=== PATIENT | male | born 1935 | race Caucasian/White ===

== ENCOUNTER 2017-02-15 19:38 | Emergency (ER) | payer MEDICARE, BC ==
[2017-02-15] MEDS ORDERED: Sodium Chloride 0.9% 10 ML Syringe FLUSH PRN (19:51)
[2017-02-15] MEDS ORDERED: Nitroglycerin 0.4 MG Tab.SL SL ONE (19:52)
[2017-02-15] MEDS ORDERED: Aspirin 81 MG Tab.Chew PO ONE (19:56)
--- NOTE | 2017-02-15 19:56 | EDM.PDOC ---
ED HPI GENERAL MEDICAL PROBLEM - General Chief Complaint: Chest Pain Stated Complaint: chest pain Time Seen by Provider: 02/15/17 19:45 Source of Information: Reports: Patient, Family History Limitations: Reports: No Limitations - History of Present Illness INITIAL COMMENTS - FREE TEXT/NARRATIVE: Patient has been having chest pain intermittently for the last 2-3 weeks. He presents this evening due to sudden onset left sided chest pain. He has had this pain in the past. He describes it as starting in the left armpit and spreading across this chest. History of CABG surgery. Medical history includes diabetes, HTN, high cholesterol. Denies nausea or vomiting. No LOC, no headache. Pain is worse on inspiration and does lead to some SOB due to pain. He states he is urinating and having regular BM's with no visualized blood in either. Onset: Today, Sudden Quality: Reports: Sharp Severity: Moderate Associated Symptoms: Reports: Chest Pain Treatments [place]AR[place]: Reports: Aspirin (162 mg at home, lost his nitro tabs) Chest Pain Score (Numeric/FACES): 7 - Related Data Allergies Allergy/AdvReac Type Severity Reaction Status Date / Time No Known Allergies Allergy Verified 02/15/17 19:45 Home Meds: Home Meds Aspirin 325 mg PO DAILY 02/15/17 [History] Fenofibrate 160 mg PO DAILY 02/15/17 [History] Furosemide [Lasix] 20 mg PO DAILY 02/15/17 [History] Ibuprofen/Diphenhydramine Cit [Advil Pm Caplet] 1 each PO BEDTIME 02/15/17 [ History] Isosorbide Mononitrate [Imdur] 0.5 tab PO DAILY 02/15/17 [History] LORazepam [Ativan] 0.5 - 1 tab PO BID PRN 02/15/17 [History] Lisinopril 2.5 mg PO DAILY 02/15/17 [History] Metoprolol Tartrate 0.5 tab PO DAILY 02/15/17 [History] Naproxen Sodium [Aleve] 1 - 2 tab PO ASDIRECTED PRN 02/15/17 [History] Nitroglycerin 0.4 mg SL ASDIRECTED 02/15/17 [History] PARoxetine HCl [Paxil] 30 mg PO DAILY 02/15/17 [History] Tamsulosin HCl [Flomax] 0.4 mg PO DAILY 02/15/17 [History] atorvaSTATin [Lipitor] 40 mg PO BEDTIME 02/15/17 [History] metFORMIN HCl [Metformin HCl] 1,000 mg PO BID 02/15/17 [History] ED ROS GENERAL - Review of Systems Review Of Systems: See Below Constitutional: Reports: No Symptoms HEENT: Reports: No Symptoms Respiratory: Reports: Shortness of Breath Cardiovascular: Reports: Chest Pain Endocrine: Reports: No Symptoms GI/Abdominal: Reports: No Symptoms : Reports: Urgency Musculoskeletal: Reports: No Symptoms Skin: Reports: No Symptoms Neurological: Reports: No Symptoms Psychiatric: Reports: No Symptoms Hematologic/Lymphatic: Reports: No Symptoms Immunologic: Reports: No Symptoms ED EXAM, GENERAL - Physical Exam Exam: See Below Exam Limited By: No Limitations General Appearance: Alert, WD/WN, No Apparent Distress Eye Exam: Bilateral Eye: EOMI, PERRL Ears: Normal TMs Throat/Mouth: Normal Inspection, Normal Oropharynx Head: Atraumatic, Normocephalic Neck: Normal Inspection, Supple, Non-Tender, Full Range of Motion Respiratory/Chest: No Respiratory Distress, No Accessory Muscle Use, Chest Non- Tender, Crackles Cardiovascular: Normal Peripheral Pulses, Regular Rate, Rhythm Peripheral Pulses: 2+: Posterior Tibial (L), Posterior Tibial (R), Dorsalis Pedis (L), Dorsalis Pedis (R) GI/Abdominal: Normal Bowel Sounds, Soft, Non-Tender, No Organomegaly, No Distention Back Exam: Normal Inspection, Full Range of Motion Extremities: Normal Inspection, Normal Range of Motion, Non-Tender, Normal Capillary Refill, Pedal Edema Neurological: Alert, Oriented, CN II-XII Intact, Normal Cognition, Normal Gait, Normal Reflexes, No Motor/Sensory Deficits Psychiatric: Normal Affect, Normal Mood Skin Exam: Warm, Dry, Intact, Normal Color, No Rash Lymphatic: No Adenopathy Course - Vital Signs Last Recorded V/S: Last Vital Signs Temp 35.9 C 02/15/17 19:45 Pulse 64 02/15/17 19:45 Resp 22 H 02/15/17 19:45 BP 154/67 H 02/15/17 19:45 Pulse Ox 94 L 02/15/17 19:45 - Re-Assessments/Exams Free Text/Narrative Re-Assessment/Exam: 02/15/17 20:04 Labs and x-rays ordered 02/15/17 20:46 Labs non contributory. Cardiac related labs normal, d-dimer negative. Electrolytes normal Departure - Departure Time of Disposition: 21:14 Disposition: Home, Self-Care 01 Condition: Good Clinical Impression: Costochondral chest pain Instructions: Nonspecific Chest Pain, [id number], Pleurisy, [id number], Costochondritis, [id number] Forms: ED Department Discharge Additional Instructions: I advise scheduling an appointment with your interface engineer to determine whether you should have additional testing such as an echocardiogram or a stress test. All cardiac related testing tonight are negative for acute heart attack If your pain persists, please make sure to return If you have any further questions or concerns please make sure to call - Problem List & Annotations (1) Costochondral chest pain SNOMED Code(s): 222562003 Code(s): R07.1 - CHEST PAIN ON BREATHING Status: Acute Priority: Low Current Visit: Yes - Problem List Review Problem List Initiated/Reviewed/Updated: Yes - Assessment/Plan Assessment:: atypical chest pain pleuracy Plan: I advise scheduling an appointment with your interface engineer to determine whether you should have additional testing such as an echocardiogram or a stress test. All cardiac related testing tonight are negative for acute heart attack If your pain persists, please make sure to return If you have any further questions or concerns please make sure to call
[2017-02-15] MEDS ORDERED: Sodium Chloride 0.9% 1,000 ML IV SCH (20:00)
[2017-02-15 20:43] LABS: CHLORIDE,CL 105 mmol/L (98-107); SODIUM,NA 139 mmol/L (136-145)
[2017-02-16] MEDS ORDERED: Aspirin 81 MG Tab.Chew PO ONE (19:52)
== END 2017-02-15 21:24 | disposition home or self-care (01) ==
LOC: VM.ED 19:38
DX: R07.1 Chest pain on breathing (principal); I10 Essential (primary) hypertension; E78.00 Pure hypercholesterolemia, unspecified; E11.9 Type 2 diabetes mellitus without complications; Z79.82 Long term (current) use of aspirin; Z79.84 Long term (current) use of oral hypoglycemic drugs; Z95.1 Presence of aortocoronary bypass graft; Z79.899 Other long term (current) drug therapy
CPT/HCPCS: 36415; 71010; 80053; 82550; 83880; 84443; 84484; 85025; 85379; 85610; 93005; 99283; 99285; A9270

== ENCOUNTER 2019-10-22 14:40 | Emergency (ER) | payer MEDICARE, BC ==
[2019-10-22] MEDS ORDERED: Sodium Chloride 0.9% 10 ML Syringe FLUSH PRN (14:59)
--- NOTE | 2019-10-22 15:10 | CT ---
[id number] CT/CT Head Stroke Protocol EXAM: NONCONTRAST HEAD CT INDICATION: STROKE. COMPARISON: None. DISCUSSION: Mild to moderate generalized atrophy. There are mild to moderate chronic small vessel ischemic changes. A few scattered small foci of bilateral frontal encephalomalacia related to previous infarct or other remote insults. No acute hemorrhage, mass effect, midline shift, hydrocephalus or acute territorial infarct is identified. The orbits and paranasal sinuses are unremarkable. Results called at 3:05 PM on 10/22/2019. IMPRESSION: 1. No acute findings. Francisco Hooks MD 10/22/19 [id number] Thank you for allowing us to participate in the care of your patient.
--- NOTE | 2019-10-22 15:17 | EDM.PDOC ---
ED HPI GENERAL MEDICAL PROBLEM - General Stated Complaint: NUMB LEFT SIDE Time Seen by Provider: 10/22/19 14:40 - History of Present Illness INITIAL COMMENTS - FREE TEXT/NARRATIVE: Pt. presents to ER with complaints of L upper extremity weakness, pronator drift , and decreased sensation, and left sided facial droop. NIH stroke scale on arrival to ER was 7. Pt. states that the onset of symptoms was at 12:00 today. Pt. denies any head trauma. No history of cerebrovascular disease. No prior CVA. Denies any chest pain or shortness of breath. Pt. has a history of off pump CABG in 2006. Most recent echo showed EF of 65%. Pt. denies any fever or chills. No chest pain or shortness of breath. No cough or chest congestion. Denies any ill contacts. Onset: Today Onset Date: 10/22/19 Location: Reports: Generalized - Related Data Allergies Allergy/AdvReac Type Severity Reaction Status Date / Time No Known Allergies Allergy Verified 02/15/17 19:45 Home Meds: Home Meds Aspirin 325 mg PO DAILY 02/15/17 [History] Fenofibrate 160 mg PO DAILY 02/15/17 [History] Furosemide [Lasix] 20 mg PO DAILY 02/15/17 [History] Isosorbide Mononitrate [Imdur] 15 mg PO DAILY 02/15/17 [History] Lisinopril 2.5 mg PO DAILY 02/15/17 [History] Metoprolol Tartrate 25 mg PO DAILY 02/15/17 [History] Nitroglycerin 0.4 mg SL ASDIRECTED 02/15/17 [History] PARoxetine HCl [Paxil] 30 mg PO DAILY 02/15/17 [History] Tamsulosin HCl [Flomax] 0.4 mg PO DAILY 02/15/17 [History] metFORMIN HCl [Metformin HCl] 1,000 mg PO BID 02/15/17 [History] Fenofibrate 160 mg PO DAILY 10/22/19 [History] Mirabegron [Myrbetriq] 50 mg PO DAILY 10/22/19 [History] Rosuvastatin Calcium [Crestor] 40 mg PO DAILY 10/22/19 [History] hydroCHLOROthiazide [Hydrochlorothiazide] 12.5 mg PO DAILY 10/22/19 [History] Past Medical History Cardiovascular History: Reports: CAD, High Cholesterol, Hypertension Genitourinary History: Reports: BPH, Renal Disease Musculoskeletal History: Reports: Back Pain, Chronic, Osteoarthritis Psychiatric History: Reports: Anxiety, Depression Endocrine/Metabolic History: Reports: Diabetes, Type II, Obesity/BMI 30+ - Past Surgical History Musculoskeletal Surgical History: Reports: Shoulder Surgery ED ROS GENERAL - Review of Systems Review Of Systems: See Below Constitutional: Reports: No Symptoms HEENT: Reports: No Symptoms Respiratory: Reports: No Symptoms Cardiovascular: Reports: No Symptoms. Denies: Chest Pain, Dyspnea on Exertion, Edema, Palpitations, PND, Syncope Endocrine: Reports: No Symptoms GI/Abdominal: Reports: No Symptoms : Reports: No Symptoms Musculoskeletal: Reports: No Symptoms Skin: Reports: No Symptoms Neurological: Reports: Paresthesia, Weakness, Other (L sided facial droop, L pronator drift, diminished L sided hand grasp. NIH scale 7 on arrival.) Psychiatric: Reports: No Symptoms Hematologic/Lymphatic: Reports: No Symptoms Immunologic: Reports: No Symptoms ED EXAM, GENERAL - Physical Exam Exam: See Below Exam Limited By: No Limitations General Appearance: Alert, WD/WN, No Apparent Distress Eye Exam: Left Eye: Vision Changes (questionable L upper visual field deficit; ) , Bilateral Eye: EOMI, Normal Fundi, Normal Inspection Nose: Normal Inspection, Normal Mucosa, No Blood Throat/Mouth: Normal Inspection, Normal Lips, Normal Teeth, Normal Gums, Normal Oropharynx, Normal Voice, No Airway Compromise Head: Atraumatic, Normocephalic Neck: Normal Inspection, Supple, Non-Tender, Full Range of Motion Respiratory/Chest: No Respiratory Distress, Lungs Clear, Normal Breath Sounds, No Accessory Muscle Use, Chest Non-Tender Cardiovascular: Normal Peripheral Pulses, Regular Rate, Rhythm, No Edema, No JVD , Systolic Murmur Peripheral Pulses: 3+: Dorsalis Pedis (L), Dorsalis Pedis (R), 4+: Radial (L), Radial (R) GI/Abdominal: Normal Bowel Sounds, Soft, Non-Tender, No Organomegaly, No Distention, No Mass (Male) Exam: Deferred Rectal (Males) Exam: Deferred Back Exam: Normal Inspection, Full Range of Motion Extremities: Normal Inspection, Normal Range of Motion, Non-Tender, No Pedal Edema, Normal Capillary Refill Neurological: Alert, Oriented, CN II-XII Intact, Normal Cognition, Normal Gait, Normal Reflexes, No Motor/Sensory Deficits Psychiatric: Normal Affect, Normal Mood Skin Exam: Warm, Dry, Intact, Normal Color, No Rash Lymphatic: No Adenopathy Course - Orders/Labs/Meds Orders: Active Orders 24 hr Category Date Time Status EKG Documentation Completion [RC] STAT Care 10/22/19 14:59 Active COMPREHENSIVE METABOLIC PN,CMP [CHEM] Stat Lab 10/22/19 14:57 Received CRP [C-REACTIVE PROTEIN] [CHEM] Stat Lab 10/22/19 14:57 Received MAGNESIUM [CHEM] Stat Lab 10/22/19 14:57 Received TSH ULTRASENSITIVE [CHEM] Stat Lab 10/22/19 14:57 Received Sodium Chloride 0.9% [Saline Flush] Med 10/22/19 14:59 Active 10 ml FLUSH ASDIRECTED PRN Peripheral IV Insertion Adult [OM.PC] Routine Oth 10/22/19 14:59 Ordered Medication Orders Sodium Chloride (Saline Flush) 10 ml FLUSH ASDIRECTED PRN PRN Reason: Keep Vein Open Labs: Laboratory Tests 10/22/19 10/22/19 10/22/19 Range/Units 14:57 14:57 14:57 WBC 5.9 (4.0-10.0) x10^3/uL RBC 4.48 L (4.5-6.0) x10^6/uL Hgb 13.6 L (14.0-18.0) g/dL Hct 39.6 L (40.0-52.0) % MCV 88.4 (78.0-93.0) fL MCH 30.4 (26.0-32.0) pg MCHC 34.3 (32.0-36.0) g/dL RDW Coeff of [place] 12.8 (10.0-15.0) % Plt Count 139 (130-400) x10^3/uL Neut % (Auto) 70.6 (50.0-80.0) % Lymph % (Auto) 19.1 L (25.0-50.0) % [place] % (Auto) 7.2 (2.0-11.0) % Eos % (Auto) 2.6 (0.0-4.0) % Baso % (Auto) 0.5 (0.2-1.2) % PT 10.4 (10.0-12.8) SEC INR 0.9 L (2.0-3.5) POC Glucose 306 H (74-106) mg/dL POC Troponin I (0.00-0.08) ng/mL 10/22/19 Range/Units 14:59 WBC (4.0-10.0) x10^3/uL RBC (4.5-6.0) x10^6/uL Hgb (14.0-18.0) g/dL Hct (40.0-52.0) % MCV (78.0-93.0) fL MCH (26.0-32.0) pg MCHC (32.0-36.0) g/dL RDW Coeff of [place] (10.0-15.0) % Plt Count (130-400) x10^3/uL Neut % (Auto) (50.0-80.0) % Lymph % (Auto) (25.0-50.0) % [place] % (Auto) (2.0-11.0) % Eos % (Auto) (0.0-4.0) % Baso % (Auto) (0.2-1.2) % PT (10.0-12.8) SEC INR (2.0-3.5) POC Glucose (74-106) mg/dL POC Troponin I 0.00 (0.00-0.08) ng/mL Meds: Medications Generic Name Dose Route Start Last Admin Trade Name Freq PRN Reason Stop Dose Admin Sodium Chloride 10 ml 10/22/19 14:59 Saline Flush FLUSH ASDIRECTED PRN Keep Vein Open Departure - Departure Time of Disposition: 16:04 Disposition: DC/Tfer to Acute Hospital 02 Condition: Critical Clinical Impression: CVA (cerebral vascular accident) - Discharge Information Referrals: PCP,Unknown [Primary Care Provider] - Forms: Interfacility Transfer EMTALA Sepsis Event Note - Focused Exam Date Exam was Performed: 10/22/19 Time Exam was Performed: 15:55 - Problem List Review Problem List Initiated/Reviewed/Updated: Yes - My Orders Last 24 Hours: My Active Orders 10/22/19 14:57 COMPREHENSIVE METABOLIC PN,CMP [CHEM] Stat CRP [C-REACTIVE PROTEIN] [CHEM] Stat MAGNESIUM [CHEM] Stat TSH ULTRASENSITIVE [CHEM] Stat 10/22/19 14:59 EKG Documentation Completion [RC] STAT Sodium Chloride 0.9% [Saline Flush] 10 ml FLUSH ASDIRECTED PRN Peripheral IV Insertion Adult [OM.PC] Routine - Assessment/Plan Last 24 Hours: My Active Orders 10/22/19 14:57 COMPREHENSIVE METABOLIC PN,CMP [CHEM] Stat CRP [C-REACTIVE PROTEIN] [CHEM] Stat MAGNESIUM [CHEM] Stat TSH ULTRASENSITIVE [CHEM] Stat 10/22/19 14:59 EKG Documentation Completion [RC] STAT Sodium Chloride 0.9% [Saline Flush] 10 ml FLUSH ASDIRECTED PRN Peripheral IV Insertion Adult [OM.PC] Routine Plan: Discussed case at length with Dr. Olmos, Neurologist at [facility]. He advised starting TPA. Discussed PMH at length with patient and family. There is not history of cerebrovascular disease, recent trauma, GI bleeding, or trauma. He is not anticoagulated. Aside from a relative contraindication for age, pt. meets criteria. Risks, benefits, and process discussed at length with patient and family and they wish to proceed. Pt. was noted to have improvement in his L upper extremity weakness shortly after starting the TPA (post bolus). He will be transported via [facility] ground ambulance. He will be seen in ER as a stroke code. [facility] are accepting.
[2019-10-22 16:34] LABS: ANION GAP 13.9 mmol/L (10-20); CHLORIDE,CL 105 mmol/L (98-107); SODIUM,NA 143 mmol/L (136-145)
== END 2019-10-22 16:00 | disposition short-term general hospital (02) ==
LOC: VM.ED 14:40
DX: I63.9 Cerebral infarction, unspecified (principal); I10 Essential (primary) hypertension; E11.9 Type 2 diabetes mellitus without complications; E78.00 Pure hypercholesterolemia, unspecified; I25.10 Atherosclerotic heart disease of native coronary artery without angina pectoris; M19.90 Unspecified osteoarthritis, unspecified site; F41.9 Anxiety disorder, unspecified; F32.9 Major depressive disorder, single episode, unspecified; E66.9 Obesity, unspecified; Z79.82 Long term (current) use of aspirin; Z79.899 Other long term (current) drug therapy; Z79.84 Long term (current) use of oral hypoglycemic drugs
CPT/HCPCS: 37195; 70450; 80053; 82962; 83735; 84443; 84484; 85025; 85610; 86140; 93005; 99284-GF; 99285-25; J2997

== ENCOUNTER 2019-11-08 14:23 | Inpatient (IN) | payer MEDICARE, BC ==
--- NOTE | 2019-11-08 08:03 | PCM.HP.2 ---
H&P History of Present Illness - General Date of Service: 11/08/19 Source of Information: Patient History Limitations: Reports: No Limitations - History of Present Illness Initial Comments - Free Text/Narative: Mr. Figueroa is an 84 yo male with PMH of prior CVA, hyperlipidemia, hypertension , depression and anxiety, OA, BPH, CAD, obesity, diabetes complicated by CKD, and APPLE on CPAP who is admitted to swing bed for further rehabilitation following a stroke. He was initially admitted to [facility] 10/21-10/28 due to a right middle cerebral artery stroke for which he did receive TPA. During this hospitalization, he also underwent angioplasty and stenting of his right internal carotid artery due to high grade stenosis. His hospitalization was otherwise uncomplicated. He had residual left upper extremity weakness post-CVA and was transferred to the rehabilitation unit at [facility] on 10/28 for further strengthening. It is now felt he no longer requires that level of care but needs further strengthening prior to return home; therefore, he will be admitted to swing bed for further cares. Upon arrival to the floor, he denies any questions or concerns. He does note weakness in his left arm from the elbow down but otherwise denies any focal neurologic deficits. He did sustain a fall last evening and has had some left wrist pain related to that. He has a brace in place. He has mild pain in the wrist but overall states this is not bothersome. No other injuries from his fall. No headaches. His appetite has been good and he is on a regular diet. He denies any trouble with voiding. He has had some constipation for which he is on stool softeners. No abdominal pain. No fever. ROS otherwise negative as below. - Related Data Allergies/Adverse Reactions: Allergies Allergy/AdvReac Type Severity Reaction Status Date / Time No Known Allergies Allergy Verified 02/15/17 19:45 Home Medications: Home Meds Furosemide [Lasix] 20 mg PO DAILY 02/15/17 [History] Isosorbide Mononitrate [Imdur] 15 mg PO DAILY 02/15/17 [History] PARoxetine HCL [Paxil] 30 mg PO DAILY 02/15/17 [History] RX: Aspirin 325 mg PO DAILY 02/15/17 [History] RX: Lisinopril 2.5 mg PO DAILY 02/15/17 [History] Tamsulosin HCl [Flomax] 0.4 mg PO BEDTIME 02/15/17 [History] Mirabegron [Myrbetriq] 50 mg PO DAILY 10/22/19 [History] RX: Fenofibrate 160 mg PO DAILY 10/22/19 [History] hydroCHLOROthiazide [Hydrochlorothiazide] 12.5 mg PO DAILY 10/22/19 [History] Aspirin [Aspirin EC] 81 mg PO DAILY 11/08/19 [History] Benzonatate [Tessalon Perle] 100 mg PO TID PRN 11/08/19 [History] Fluticasone/Vilanterol [Breo Ellipta 100-25 MCG Inhalation Kit] 1 puff PO DAILY 11/08/19 [History] Liraglutide [Victoza 3-Gerber] 18 mg SUBCUT ASDIRECTED 11/08/19 [History] Multivitamin [Multi-Day Vitamins] 1 tab PO DAILY 11/08/19 [History] RX: Docusate Sodium 100 mg PO BID 11/08/19 [History] RX: Melatonin 6 mg PO BEDTIME 11/08/19 [History] RX: Ticagrelor [Brilinta] 90 mg PO BID 11/08/19 [History] Sennosides/Docusate Sodium [Senna-Docusate Sodium Tablet] 2 tab PO BEDTIME 11/07 [History] atorvaSTATin [Lipitor] 80 mg PO DAILY 11/08/19 [History] Past Medical History HEENT History: Reports: Cataract Cardiovascular History: Reports: CAD, High Cholesterol, Hypertension, Stents Respiratory History: Reports: Sleep Apnea Gastrointestinal History: Reports: None Genitourinary History: Reports: BPH, Renal Disease Musculoskeletal History: Reports: Back Pain, Chronic, Osteoarthritis Neurological History: Reports: CVA Psychiatric History: Reports: Anxiety, Depression Endocrine/Metabolic History: Reports: Diabetes, Type II, Obesity/BMI 30+ Hematologic History: Reports: None Immunologic History: Reports: None Oncologic (Cancer) History: Reports: None Dermatologic History: Reports: None - Infectious Disease History Infectious Disease History: Reports: None - Past Surgical History HEENT Surgical History: Reports: Cataract Surgery Cardiovascular Surgical History: Reports: Carotid Stents, Coronary Artery Bypass Neurological Surgical History: Reports: Lumbar Spine Musculoskeletal Surgical History: Reports: Carpal Tunnel, Shoulder Surgery Social & Family History - Family History Cardiac: Reports: CAD - Tobacco Use Smoking Status *Q: Former Smoker Tobacco Use Within Last Twelve Months: Smokeless Tobacco - Alcohol Use Alcohol Use History: No Alcohol Use in Last Twelve Months: Yes Alcohol Use Frequency: Rarely, Socially - Recreational Drug Use Recreational Drug Use: No - Living Situation & Occupation Living situation: Reports: , Alone 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) H&P Review of Systems - Review of Systems: Review Of Systems: See Below General: Reports: No Symptoms HEENT: Reports: No Symptoms Pulmonary: Reports: No Symptoms Cardiovascular: Reports: No Symptoms Gastrointestinal: Reports: No Symptoms Genitourinary: Reports: No Symptoms Musculoskeletal: Reports: Arm Pain Skin: Reports: No Symptoms Psychiatric: Reports: No Symptoms Neurological: Reports: Weakness Exam - Exam Exam: See Below - Exam General: Alert, Oriented, Cooperative HEENT: Conjunctiva Clear, Mucosa Moist & [place], Posterior Pharynx Clear, Pupils Equal, Pupils Reactive Neck: Supple, Trachea Midline. No: Lymphadenopathy, Thyromegaly Lungs: Clear to Auscultation, Normal Respiratory Effort Cardiovascular: Regular Rate, Regular Rhythm, Normal S1, Normal S2 GI/Abdominal Exam: Normal Bowel Sounds, Soft, Non-Tender, No Organomegaly, No Distention, No Mass Extremities: Non-Tender, No Pedal Edema, Normal Capillary Refill Peripheral Pulses: 2+: Radial (L), Radial (R) Skin: Warm, Dry, Intact Neurological: Other (Lower extremity strength equal bilaterally. Upper extremity strength equal proximal to the elbow; he has minimal finger mobility on the left, normal on the right. Sensation is intact throughout.) - Problem List (1) CVA (cerebral vascular accident) SNOMED Code(s): 244907017 ICD Code: I63.9 - CEREBRAL INFARCTION, UNSPECIFIED Status: Acute Current Visit: No Qualifiers: CVA mechanism: stenosis Precerebral and cerebral artery: carotid artery Laterality of affected vessel: right Qualified Code(s): I63.231 - Cerebral infarction due to unspecified occlusion or stenosis of right carotid arteries (2) Wrist injury SNOMED Code(s): 327185292 ICD Code: S69.90XA - UNSP INJURY OF UNSP WRIST, HAND AND FINGER(S), INIT ENCNTR Status: Acute Current Visit: Yes (3) Hyperlipidemia SNOMED Code(s): 79913237 ICD Code: E78.5 - HYPERLIPIDEMIA, UNSPECIFIED Status: Chronic Current Visit: No Qualifiers: Hyperlipidemia type: unspecified Qualified Code(s): E78.5 - Hyperlipidemia , unspecified (4) Hypertension SNOMED Code(s): 39302519 ICD Code: I10 - ESSENTIAL (PRIMARY) HYPERTENSION Status: Chronic Current Visit: No Qualifiers: Hypertension type: essential hypertension Qualified Code(s): I10 - Essential (primary) hypertension (5) Coronary artery disease SNOMED Code(s): 01513582 ICD Code: I25.10 - ATHSCL HEART DISEASE OF [place] CORONARY ARTERY W/O ANG PCTRS Status: Chronic Current Visit: No Qualifiers: Coronary Disease-Associated Artery/Lesion type: [place] artery [place] vs. transplanted heart: [place] heart Associated angina: without angina Qualified Code(s): I25.10 - Atherosclerotic heart disease of [place] coronary artery without angina pectoris (6) Diabetes SNOMED Code(s): 14310883 ICD Code: E11.9 - TYPE 2 DIABETES MELLITUS WITHOUT COMPLICATIONS Status: Chronic Current Visit: No Qualifiers: Diabetes mellitus type: type 2 Diabetes mellitus residential insulin use: without residential use Diabetes mellitus complication status: with kidney complications Diabetes mellitus complication detail: with chronic kidney disease (7) CKD (chronic kidney disease) SNOMED Code(s): 000805583 ICD Code: N18.9 - CHRONIC KIDNEY DISEASE, UNSPECIFIED Status: Chronic Current Visit: No Qualifiers: Chronic kidney disease stage: stage 3 (moderate) Qualified Code(s): N18.3 - Chronic kidney disease, stage 3 (moderate) (8) Osteoarthritis SNOMED Code(s): 272284723 ICD Code: M19.90 - UNSPECIFIED OSTEOARTHRITIS, UNSPECIFIED SITE Status: Chronic Current Visit: No Qualifiers: Osteoarthritis location: multiple joints Osteoarthritis type: primary Qualified Code(s): M89.49 - Other hypertrophic osteoarthropathy, multiple sites (9) BPH (benign prostatic hyperplasia) SNOMED Code(s): 518905804 ICD Code: N40.0 - BENIGN PROSTATIC HYPERPLASIA WITHOUT LOWER URINRY TRACT SYMP Status: Chronic Current Visit: No Qualifiers: Lower urinary tract symptom presence: unspecified whether lower urinary tract symptoms present Qualified Code(s): N40.0 - Benign prostatic hyperplasia without lower urinary tract symptoms (10) APPLE (obstructive sleep apnea) SNOMED Code(s): 09414768 ICD Code: G47.33 - OBSTRUCTIVE SLEEP APNEA (ADULT) (PEDIATRIC) Status: Chronic Current Visit: No Problem List Initiated/Reviewed/Updated: Yes Assessment/Plan Comment:: 84 yo male admitted to swing bed for further strengthening of his left upper extremity following a right MCA stroke. #1 Right CVA secondary to severe right ICA stenosis s/p stenting - Patient is progressing well with rehabilitation. - PT/OT consults ordered. - Anticipation is that he will only need 1-2 weeks of swing bed prior to returning home. - He will be on dual antiplatelet therapy for 3 months, then aspirin. - Continue statin and other home medications as below. #2 Wrist injury - X-rays negative. - Can wean from splint as able. #3 Hyperlipidemia #4 Hypertension #5 CAD - Continue home medications. #6 Type II Diabetes #7 CKD, stage 3 - Continue victoza as his renal function precludes many other options. - Will check glucoses fasting each morning. - Creatinine up to 2.6 from previous baseline of 1.7. - Will recheck this again on Tuesday. #8 OA #9 BPH - Continue home medications. #10 APPLE - Patient does not currently use CPAP. Patient will be admitted to swing bed as above - anticipate admission for 1-2 weeks prior to return home. Medications to be continued as per discharge medication list. Patient is DNR/DNI - discussed with him on admission. No indication for pharmacologic VTE prophylaxis and risks outweigh benefits in the setting of dual antiplatelet therapy.
[2019-11-08] MEDS ORDERED: Benzonatate 100 MG Cap PO PRN (16:10)
[2019-11-08] MEDS ORDERED: LIRAGLUTIDE 18 MG SUBCUT SCH (16:15)
[2019-11-08] MEDS: Ticagrelor 90 MG Tab PO SCH (20:06)
[2019-11-08] MEDS: Melatonin 3 MG Tab PO SCH (20:06)
[2019-11-08] MEDS: Tamsulosin 0.4 MG Cap.ER PO SCH (20:06)
[2019-11-08] MEDS: Docusate Sodium 100 MG Cap PO SCH (20:07)
[2019-11-09] MEDS: Fluticasone-Salmeterol 113-14 MCG Powder Inhalant INH SCH ×3 (03:35→19:45)
[2019-11-09] MEDS ORDERED: LIRAGLUTIDE 0.6 MG SUBCUT SCH (08:00)
[2019-11-09] MEDS ORDERED: Aspirin 325 MG Tab.EC PO SCH (08:00)
[2019-11-09] MEDS ORDERED: Hydrochlorothiazide 12.5 MG Cap PO SCH (08:00)
[2019-11-09] MEDS: Insulin Glarg,Human.Rec.Analog 100 Unit/ML SUBCUT SCH (09:46)
[2019-11-09] MEDS: Fenofibrate,Micronized 134 MG Cap PO SCH (09:48)
[2019-11-09] MEDS: atorvaSTATin 40 MG Tab PO SCH (09:49)
[2019-11-09] MEDS: Lisinopril 2.5 MG Tab PO SCH (09:49)
[2019-11-09] MEDS: Docusate Sodium 100 MG Cap PO SCH ×2 (09:50→19:45)
[2019-11-09] MEDS: Furosemide 20 MG Tab PO SCH (09:50)
[2019-11-09] MEDS: Isosorbide Mononitrate 30 MG Tab.ER PO SCH (09:50)
[2019-11-09] MEDS: PARoxetine 20 MG Tab PO SCH (09:51)
[2019-11-09] MEDS: Ticagrelor 90 MG Tab PO SCH ×2 (09:53→19:45)
[2019-11-09] MEDS: Mirabegron 25 MG Tab Extended Release PO SCH (10:04)
[2019-11-09] MEDS: Tamsulosin 0.4 MG Cap.ER PO SCH (19:45)
[2019-11-09] MEDS: Melatonin 3 MG Tab PO SCH (19:45)
[2019-11-10] MEDS: Fluticasone-Salmeterol 113-14 MCG Powder Inhalant INH SCH ×2 (06:38→19:31)
[2019-11-10] MEDS: Insulin Glarg,Human.Rec.Analog 100 Unit/ML SUBCUT SCH (09:47)
[2019-11-10] MEDS: atorvaSTATin 40 MG Tab PO SCH (09:48)
[2019-11-10] MEDS: Mirabegron 25 MG Tab Extended Release PO SCH (09:48)
[2019-11-10] MEDS: Lisinopril 2.5 MG Tab PO SCH (09:48)
[2019-11-10] MEDS: Isosorbide Mononitrate 30 MG Tab.ER PO SCH (09:49)
[2019-11-10] MEDS: Docusate Sodium 100 MG Cap PO SCH ×2 (09:49→19:30)
[2019-11-10] MEDS: Fenofibrate,Micronized 134 MG Cap PO SCH (09:49)
[2019-11-10] MEDS: Ticagrelor 90 MG Tab PO SCH ×2 (09:49→19:31)
[2019-11-10] MEDS: Aspirin 81 MG Tab.EC PO SCH (09:49)
[2019-11-10] MEDS: Furosemide 20 MG Tab PO SCH (09:50)
[2019-11-10] MEDS: PARoxetine 20 MG Tab PO SCH (09:51)
[2019-11-10] MEDS: Melatonin 3 MG Tab PO SCH (19:30)
[2019-11-10] MEDS: Tamsulosin 0.4 MG Cap.ER PO SCH (19:30)
[2019-11-11] MEDS: Fluticasone-Salmeterol 113-14 MCG Powder Inhalant INH SCH ×2 (07:00→19:33)
[2019-11-11] MEDS: Insulin Glarg,Human.Rec.Analog 100 Unit/ML SUBCUT SCH (09:42)
[2019-11-11] MEDS: Aspirin 81 MG Tab.EC PO SCH (09:43)
[2019-11-11] MEDS: atorvaSTATin 40 MG Tab PO SCH (09:43)
[2019-11-11] MEDS: Mirabegron 25 MG Tab Extended Release PO SCH (09:44)
[2019-11-11] MEDS: Furosemide 20 MG Tab PO SCH (09:44)
[2019-11-11] MEDS: PARoxetine 20 MG Tab PO SCH (09:44)
[2019-11-11] MEDS: Isosorbide Mononitrate 30 MG Tab.ER PO SCH (09:45)
[2019-11-11] MEDS: Lisinopril 2.5 MG Tab PO SCH (09:45)
[2019-11-11] MEDS: Docusate Sodium 100 MG Cap PO SCH ×2 (09:46→19:33)
[2019-11-11] MEDS: Fenofibrate,Micronized 134 MG Cap PO SCH (09:46)
[2019-11-11] MEDS: Ticagrelor 90 MG Tab PO SCH ×2 (09:47→19:32)
[2019-11-11] MEDS: Melatonin 3 MG Tab PO SCH (19:32)
[2019-11-11] MEDS: Tamsulosin 0.4 MG Cap.ER PO SCH (19:32)
[2019-11-12] MEDS: Fluticasone-Salmeterol 113-14 MCG Powder Inhalant INH SCH ×2 (06:33→19:47)
[2019-11-12] MEDS: Insulin Glarg,Human.Rec.Analog 100 Unit/ML SUBCUT SCH (08:50)
[2019-11-12] MEDS: PARoxetine 20 MG Tab PO SCH (08:51)
[2019-11-12] MEDS: Lisinopril 2.5 MG Tab PO SCH (08:51)
[2019-11-12] MEDS: Fenofibrate,Micronized 134 MG Cap PO SCH (08:51)
[2019-11-12] MEDS: Mirabegron 25 MG Tab Extended Release PO SCH (08:52)
[2019-11-12] MEDS: Ticagrelor 90 MG Tab PO SCH ×2 (08:53→19:49)
[2019-11-12] MEDS: atorvaSTATin 40 MG Tab PO SCH (08:53)
[2019-11-12] MEDS: Docusate Sodium 100 MG Cap PO SCH ×2 (08:53→19:48)
[2019-11-12] MEDS: Isosorbide Mononitrate 30 MG Tab.ER PO SCH (08:53)
[2019-11-12] MEDS: Furosemide 20 MG Tab PO SCH (08:53)
[2019-11-12] MEDS: Aspirin 81 MG Tab.EC PO SCH (08:53)
[2019-11-12] MEDS: Melatonin 3 MG Tab PO SCH (19:48)
[2019-11-12] MEDS: Tamsulosin 0.4 MG Cap.ER PO SCH (19:48)
[2019-11-13] MEDS: Fluticasone-Salmeterol 113-14 MCG Powder Inhalant INH SCH ×2 (06:11→19:31)
[2019-11-13] MEDS: PARoxetine 20 MG Tab PO SCH (07:40)
[2019-11-13] MEDS: Ticagrelor 90 MG Tab PO SCH ×2 (07:40→19:32)
[2019-11-13] MEDS: Mirabegron 25 MG Tab Extended Release PO SCH (07:40)
[2019-11-13] MEDS: Furosemide 20 MG Tab PO SCH (07:40)
[2019-11-13] MEDS: atorvaSTATin 40 MG Tab PO SCH (07:40)
[2019-11-13] MEDS: Isosorbide Mononitrate 30 MG Tab.ER PO SCH (07:40)
[2019-11-13] MEDS: Aspirin 81 MG Tab.EC PO SCH (07:40)
[2019-11-13] MEDS: Fenofibrate,Micronized 134 MG Cap PO SCH (07:41)
[2019-11-13] MEDS: Docusate Sodium 100 MG Cap PO SCH ×2 (07:41→19:32)
[2019-11-13] MEDS: Lisinopril 2.5 MG Tab PO SCH (07:41)
[2019-11-13] MEDS: Insulin Glarg,Human.Rec.Analog 100 Unit/ML SUBCUT SCH (07:46)
[2019-11-13] MEDS: Tamsulosin 0.4 MG Cap.ER PO SCH (19:32)
[2019-11-13] MEDS: Melatonin 3 MG Tab PO SCH (19:32)
[2019-11-14] MEDS: Fluticasone-Salmeterol 113-14 MCG Powder Inhalant INH SCH ×2 (06:11→19:49)
[2019-11-14] MEDS: Insulin Glarg,Human.Rec.Analog 100 Unit/ML SUBCUT SCH (09:28)
[2019-11-14] MEDS: PARoxetine 20 MG Tab PO SCH (09:31)
[2019-11-14] MEDS: Fenofibrate,Micronized 134 MG Cap PO SCH (09:31)
[2019-11-14] MEDS: atorvaSTATin 40 MG Tab PO SCH (09:32)
[2019-11-14] MEDS: Ticagrelor 90 MG Tab PO SCH ×2 (09:32→19:50)
[2019-11-14] MEDS: Mirabegron 25 MG Tab Extended Release PO SCH (09:32)
[2019-11-14] MEDS: Lisinopril 2.5 MG Tab PO SCH (09:32)
[2019-11-14] MEDS: Isosorbide Mononitrate 30 MG Tab.ER PO SCH (09:32)
[2019-11-14] MEDS: Docusate Sodium 100 MG Cap PO SCH ×2 (09:33→19:51)
[2019-11-14] MEDS: Furosemide 20 MG Tab PO SCH (09:33)
[2019-11-14] MEDS: Aspirin 81 MG Tab.EC PO SCH (09:33)
[2019-11-14] MEDS: Melatonin 3 MG Tab PO SCH (19:51)
[2019-11-14] MEDS: Tamsulosin 0.4 MG Cap.ER PO SCH (19:51)
[2019-11-15] MEDS: Fluticasone-Salmeterol 113-14 MCG Powder Inhalant INH SCH ×3 (05:35→20:45)
[2019-11-15] MEDS: Mirabegron 25 MG Tab Extended Release PO SCH (08:30)
[2019-11-15] MEDS: Isosorbide Mononitrate 30 MG Tab.ER PO SCH (08:31)
[2019-11-15] MEDS: Lisinopril 2.5 MG Tab PO SCH (08:32)
[2019-11-15] MEDS: Aspirin 81 MG Tab.EC PO SCH (08:32)
[2019-11-15] MEDS: PARoxetine 20 MG Tab PO SCH (08:33)
[2019-11-15] MEDS: Furosemide 20 MG Tab PO SCH (08:34)
[2019-11-15] MEDS: atorvaSTATin 40 MG Tab PO SCH (08:34)
[2019-11-15] MEDS: Docusate Sodium 100 MG Cap PO SCH ×2 (08:34→20:48)
[2019-11-15] MEDS: Ticagrelor 90 MG Tab PO SCH ×2 (08:35→20:47)
[2019-11-15] MEDS: Fenofibrate,Micronized 134 MG Cap PO SCH (08:35)
[2019-11-15] MEDS: Insulin Glarg,Human.Rec.Analog 100 Unit/ML SUBCUT SCH (08:35)
[2019-11-15] MEDS: Melatonin 3 MG Tab PO SCH (20:47)
[2019-11-15] MEDS: Tamsulosin 0.4 MG Cap.ER PO SCH (20:47)
[2019-11-16] MEDS: Fluticasone-Salmeterol 113-14 MCG Powder Inhalant INH SCH ×2 (07:38→21:22)
[2019-11-16] MEDS: Insulin Glarg,Human.Rec.Analog 100 Unit/ML SUBCUT SCH (07:39)
[2019-11-16] MEDS: Lisinopril 2.5 MG Tab PO SCH (07:42)
[2019-11-16] MEDS: Mirabegron 25 MG Tab Extended Release PO SCH (07:42)
[2019-11-16] MEDS: atorvaSTATin 40 MG Tab PO SCH (07:42)
[2019-11-16] MEDS: Docusate Sodium 100 MG Cap PO SCH ×2 (07:42→21:23)
[2019-11-16] MEDS: Ticagrelor 90 MG Tab PO SCH ×2 (07:45→21:23)
[2019-11-16] MEDS: Isosorbide Mononitrate 30 MG Tab.ER PO SCH (07:45)
[2019-11-16] MEDS: Fenofibrate,Micronized 134 MG Cap PO SCH (07:45)
[2019-11-16] MEDS: Aspirin 81 MG Tab.EC PO SCH (07:45)
[2019-11-16] MEDS: Furosemide 20 MG Tab PO SCH (07:45)
[2019-11-16] MEDS: PARoxetine 20 MG Tab PO SCH (07:45)
[2019-11-16] MEDS: Melatonin 3 MG Tab PO SCH (21:23)
[2019-11-16] MEDS: Tamsulosin 0.4 MG Cap.ER PO SCH (21:23)
[2019-11-17] MEDS: Docusate Sodium 100 MG Cap PO SCH ×2 (07:51→19:40)
[2019-11-17] MEDS: Fluticasone-Salmeterol 113-14 MCG Powder Inhalant INH SCH ×2 (07:52→19:41)
[2019-11-17] MEDS: Insulin Glarg,Human.Rec.Analog 100 Unit/ML SUBCUT SCH (07:52)
[2019-11-17] MEDS: PARoxetine 20 MG Tab PO SCH (07:53)
[2019-11-17] MEDS: Isosorbide Mononitrate 30 MG Tab.ER PO SCH (07:55)
[2019-11-17] MEDS: Lisinopril 2.5 MG Tab PO SCH (07:57)
[2019-11-17] MEDS: Furosemide 20 MG Tab PO SCH (07:58)
[2019-11-17] MEDS: Mirabegron 25 MG Tab Extended Release PO SCH (07:58)
[2019-11-17] MEDS: Ticagrelor 90 MG Tab PO SCH ×2 (07:58→19:40)
[2019-11-17] MEDS: atorvaSTATin 40 MG Tab PO SCH (07:58)
[2019-11-17] MEDS: Aspirin 81 MG Tab.EC PO SCH (07:58)
[2019-11-17] MEDS: Fenofibrate,Micronized 134 MG Cap PO SCH (07:58)
[2019-11-17] MEDS: Melatonin 3 MG Tab PO SCH (19:40)
[2019-11-17] MEDS: Tamsulosin 0.4 MG Cap.ER PO SCH (19:41)
[2019-11-18] MEDS: Fluticasone-Salmeterol 113-14 MCG Powder Inhalant INH SCH ×2 (06:27→19:24)
[2019-11-18] MEDS: atorvaSTATin 40 MG Tab PO SCH (07:42)
[2019-11-18] MEDS: Insulin Glarg,Human.Rec.Analog 100 Unit/ML SUBCUT SCH (07:42)
[2019-11-18] MEDS: Isosorbide Mononitrate 30 MG Tab.ER PO SCH (07:43)
[2019-11-18] MEDS: Mirabegron 25 MG Tab Extended Release PO SCH (07:45)
[2019-11-18] MEDS: Aspirin 81 MG Tab.EC PO SCH (07:45)
[2019-11-18] MEDS: Furosemide 20 MG Tab PO SCH (07:45)
[2019-11-18] MEDS: Docusate Sodium 100 MG Cap PO SCH ×2 (07:46→19:24)
[2019-11-18] MEDS: Fenofibrate,Micronized 134 MG Cap PO SCH (07:46)
[2019-11-18] MEDS: PARoxetine 20 MG Tab PO SCH (07:46)
[2019-11-18] MEDS: Lisinopril 2.5 MG Tab PO SCH (07:46)
[2019-11-18] MEDS: Ticagrelor 90 MG Tab PO SCH ×2 (07:46→19:24)
[2019-11-18] MEDS: Tamsulosin 0.4 MG Cap.ER PO SCH (19:24)
[2019-11-18] MEDS: Melatonin 3 MG Tab PO SCH (19:24)
[2019-11-19] MEDS: Fluticasone-Salmeterol 113-14 MCG Powder Inhalant INH SCH ×2 (06:21→19:45)
[2019-11-19] MEDS: PARoxetine 20 MG Tab PO SCH (07:52)
[2019-11-19] MEDS: Furosemide 20 MG Tab PO SCH (07:53)
[2019-11-19] MEDS: Mirabegron 25 MG Tab Extended Release PO SCH (07:54)
[2019-11-19] MEDS: atorvaSTATin 40 MG Tab PO SCH (07:54)
[2019-11-19] MEDS: Fenofibrate,Micronized 134 MG Cap PO SCH (07:56)
[2019-11-19] MEDS: Docusate Sodium 100 MG Cap PO SCH ×2 (07:56→19:45)
[2019-11-19] MEDS: Lisinopril 2.5 MG Tab PO SCH (07:57)
[2019-11-19] MEDS: Aspirin 81 MG Tab.EC PO SCH (07:58)
[2019-11-19] MEDS: Isosorbide Mononitrate 30 MG Tab.ER PO SCH (07:58)
[2019-11-19] MEDS: Ticagrelor 90 MG Tab PO SCH ×2 (07:59→19:45)
[2019-11-19] MEDS: Insulin Glarg,Human.Rec.Analog 100 Unit/ML SUBCUT SCH (08:01)
[2019-11-19] MEDS: Melatonin 3 MG Tab PO SCH (19:45)
[2019-11-19] MEDS: Tamsulosin 0.4 MG Cap.ER PO SCH (19:45)
[2019-11-20] MEDS: Fluticasone-Salmeterol 113-14 MCG Powder Inhalant INH SCH ×2 (06:28→19:31)
[2019-11-20] MEDS: Ticagrelor 90 MG Tab PO SCH ×2 (07:47→19:31)
[2019-11-20] MEDS: Furosemide 20 MG Tab PO SCH (07:47)
[2019-11-20] MEDS: Lisinopril 2.5 MG Tab PO SCH (07:47)
[2019-11-20] MEDS: Docusate Sodium 100 MG Cap PO SCH ×2 (07:47→19:31)
[2019-11-20] MEDS: PARoxetine 20 MG Tab PO SCH (07:47)
[2019-11-20] MEDS: Fenofibrate,Micronized 134 MG Cap PO SCH (07:47)
[2019-11-20] MEDS: Aspirin 81 MG Tab.EC PO SCH (07:48)
[2019-11-20] MEDS: Mirabegron 25 MG Tab Extended Release PO SCH (07:48)
[2019-11-20] MEDS: atorvaSTATin 40 MG Tab PO SCH (07:48)
[2019-11-20] MEDS: Isosorbide Mononitrate 30 MG Tab.ER PO SCH (07:48)
[2019-11-20] MEDS: Insulin Glarg,Human.Rec.Analog 100 Unit/ML SUBCUT SCH (07:48)
[2019-11-20] MEDS: Melatonin 3 MG Tab PO SCH (19:31)
[2019-11-20] MEDS: Tamsulosin 0.4 MG Cap.ER PO SCH (19:31)
[2019-11-21] MEDS: Fluticasone-Salmeterol 113-14 MCG Powder Inhalant INH SCH ×2 (06:07→19:29)
[2019-11-21] MEDS: atorvaSTATin 40 MG Tab PO SCH (07:18)
[2019-11-21] MEDS: Mirabegron 25 MG Tab Extended Release PO SCH (07:18)
[2019-11-21] MEDS: Docusate Sodium 100 MG Cap PO SCH ×2 (07:18→19:30)
[2019-11-21] MEDS: Isosorbide Mononitrate 30 MG Tab.ER PO SCH (07:18)
[2019-11-21] MEDS: Fenofibrate,Micronized 134 MG Cap PO SCH (07:19)
[2019-11-21] MEDS: Lisinopril 2.5 MG Tab PO SCH (07:19)
[2019-11-21] MEDS: Furosemide 20 MG Tab PO SCH (07:19)
[2019-11-21] MEDS: PARoxetine 20 MG Tab PO SCH (07:19)
[2019-11-21] MEDS: Insulin Glarg,Human.Rec.Analog 100 Unit/ML SUBCUT SCH (07:19)
[2019-11-21] MEDS: Aspirin 81 MG Tab.EC PO SCH (07:19)
[2019-11-21] MEDS: Ticagrelor 90 MG Tab PO SCH ×2 (07:19→19:30)
[2019-11-21] MEDS: Tamsulosin 0.4 MG Cap.ER PO SCH (19:29)
[2019-11-21] MEDS: Melatonin 3 MG Tab PO SCH (19:58)
[2019-11-22 06:30] VITALS: PULSE 76
[2019-11-22] MEDS: Fluticasone-Salmeterol 113-14 MCG Powder Inhalant INH SCH (06:30)
--- NOTE | 2019-11-22 08:31 | PCM.DCSUM1 ---
Discharge Summary - Hospital Course Brief History: Mr. Figueroa is an 84 yo male who was admitted to swing bed for strengthening after a CVA with resultant left upper extremity weakness. - Discharge Data Discharge Date: 11/22/19 Discharge Disposition: Home, Self-Care 01 Condition: Good - Referral to Home Health Primary Care Physician: Tre Encinas PA-C - Discharge Diagnosis/Problem(s) (1) CVA (cerebral vascular accident) SNOMED Code(s): 433479259 ICD Code: I63.9 - CEREBRAL INFARCTION, UNSPECIFIED Status: Acute Current Visit: No Qualifiers: CVA mechanism: stenosis Precerebral and cerebral artery: carotid artery Laterality of affected vessel: right Qualified Code(s): I63.231 - Cerebral infarction due to unspecified occlusion or stenosis of right carotid arteries (2) Wrist injury SNOMED Code(s): 694711377 ICD Code: S69.90XA - UNSP INJURY OF UNSP WRIST, HAND AND FINGER(S), INIT ENCNTR Status: Acute Current Visit: Yes (3) Hyperlipidemia SNOMED Code(s): 05612223 ICD Code: E78.5 - HYPERLIPIDEMIA, UNSPECIFIED Status: Chronic Current Visit: No Qualifiers: Hyperlipidemia type: unspecified Qualified Code(s): E78.5 - Hyperlipidemia , unspecified (4) Hypertension SNOMED Code(s): 17269893 ICD Code: I10 - ESSENTIAL (PRIMARY) HYPERTENSION Status: Chronic Current Visit: No Qualifiers: Hypertension type: essential hypertension Qualified Code(s): I10 - Essential (primary) hypertension (5) Coronary artery disease SNOMED Code(s): 86550014 ICD Code: I25.10 - ATHSCL HEART DISEASE OF [place] CORONARY ARTERY W/O ANG PCTRS Status: Chronic Current Visit: No Qualifiers: Coronary Disease-Associated Artery/Lesion type: [place] artery [place] vs. transplanted heart: [place] heart Associated angina: without angina Qualified Code(s): I25.10 - Atherosclerotic heart disease of [place] coronary artery without angina pectoris (6) Diabetes SNOMED Code(s): 62560539 ICD Code: E11.9 - TYPE 2 DIABETES MELLITUS WITHOUT COMPLICATIONS Status: Chronic Current Visit: No Qualifiers: Diabetes mellitus type: type 2 Diabetes mellitus ocean transportation intermediary insulin use: without ocean transportation intermediary use Diabetes mellitus complication status: with kidney complications Diabetes mellitus complication detail: with chronic kidney disease (7) CKD (chronic kidney disease) SNOMED Code(s): 085585604 ICD Code: N18.9 - CHRONIC KIDNEY DISEASE, UNSPECIFIED Status: Chronic Current Visit: No Qualifiers: Chronic kidney disease stage: stage 3 (moderate) Qualified Code(s): N18.3 - Chronic kidney disease, stage 3 (moderate) (8) Osteoarthritis SNOMED Code(s): 115414575 ICD Code: M19.90 - UNSPECIFIED OSTEOARTHRITIS, UNSPECIFIED SITE Status: Chronic Current Visit: No Qualifiers: Osteoarthritis location: multiple joints Osteoarthritis type: primary Qualified Code(s): M89.49 - Other hypertrophic osteoarthropathy, multiple sites (9) BPH (benign prostatic hyperplasia) SNOMED Code(s): 894487393 ICD Code: N40.0 - BENIGN PROSTATIC HYPERPLASIA WITHOUT LOWER URINRY TRACT SYMP Status: Chronic Current Visit: No Qualifiers: Lower urinary tract symptom presence: unspecified whether lower urinary tract symptoms present Qualified Code(s): N40.0 - Benign prostatic hyperplasia without lower urinary tract symptoms (10) APPLE (obstructive sleep apnea) SNOMED Code(s): 88833281 ICD Code: G47.33 - OBSTRUCTIVE SLEEP APNEA (ADULT) (PEDIATRIC) Status: Chronic Current Visit: No - Patient Summary/Data Operative Procedure(s) Performed: none Complications: none Consults: Consultations 11/08/19 16:02 OT Evaluation and Treatment [CONS] Routine PT Evaluation and Treatment [CONS] Routine Labs Pending at D/C: none Recommended Follow-up Testing/Procedures: none Planned Operative Procedure(s) after DC: none Hospital Course: The patient was admitted and participated in therapies with OT and PT. His medications were continued per his hospital discharge list with the exception of the victoza being replaced with insulin due to inability to get the victoza. His glucoses were well controlled on the insulin. He will be continued on this upon discharge with subsequent medication management to be determined in follow- up. His labs were monitored weekly with improvement in his creatinine noted. His hospitalization was otherwise uncomplicated. He progressed well with therapies and will be discharged home to continue outpatient PT and OT. His daughter is coming from [place] to stay with him for a few days as he adjusts to returning home. - Patient Instructions Diet: Diabetic Diet Activity: As Tolerated - Discharge Plan *PRESCRIPTION DRUG MONITORING PROGRAM REVIEWED*: No *COPY OF PRESCRIPTION DRUG MONITORING REPORT IN PATIENT JUAN: No Prescriptions/Med Rec: Insulin Glarg,Human.Rec.Analog [Lantus] 10 unit SUBCUT DAILY #10 ml Home Medications: Home Meds Furosemide [Lasix] 20 mg PO DAILY 02/15/17 [History] Isosorbide Mononitrate [Imdur] 15 mg PO DAILY 02/15/17 [History] Lisinopril 2.5 mg PO DAILY 02/15/17 [History] PARoxetine HCL [Paxil] 30 mg PO DAILY 02/15/17 [History] Tamsulosin HCl [Flomax] 0.4 mg PO BEDTIME 02/15/17 [History] Fenofibrate 160 mg PO DAILY 10/22/19 [History] Mirabegron [Myrbetriq] 50 mg PO DAILY 10/22/19 [History] Aspirin [Aspirin EC] 81 mg PO DAILY 11/08/19 [History] Docusate Sodium 100 mg PO BID 11/08/19 [History] Fluticasone/Vilanterol [Breo Ellipta 100-25 MCG Inhalation Kit] 1 puff PO DAILY 11/08/19 [History] Melatonin 6 mg PO BEDTIME 11/08/19 [History] Multivitamin [Multi-Day Vitamins] 1 tab PO DAILY 11/08/19 [History] Sennosides/Docusate Sodium [Senna-Docusate Sodium Tablet] 2 tab PO BEDTIME 11/07 [History] Ticagrelor [Brilinta] 90 mg PO BID 11/08/19 [History] atorvaSTATin [Lipitor] 80 mg PO DAILY 11/08/19 [History] Insulin Glarg,Human.Rec.Analog [Lantus] 10 unit SUBCUT DAILY #10 ml 11/22/19 [Rx ] - Discharge Summary/Plan Comment DC Time >30 min.: No - General Info Date of Service: 11/22/19 Subjective Update: 84 yo male seen today for swing bed discharge. He states he is doing well. His left hand is getting stronger. He denies any other concerns today. ROS otherwise negative. - Review of Systems General: Reports: No Symptoms HEENT: Reports: No Symptoms Pulmonary: Reports: No Symptoms Cardiovascular: Reports: No Symptoms Gastrointestinal: Reports: No Symptoms Genitourinary: Reports: No Symptoms Musculoskeletal: Reports: No Symptoms Skin: Reports: No Symptoms Neurological: Reports: Pre-Existing Deficit - Patient Data Vitals - Most Recent: Last Vital Signs Temp 36.4 C 11/22/19 06:29 Pulse 76 11/22/19 06:29 Resp 18 11/22/19 06:29 BP 125/79 11/22/19 06:29 Pulse Ox 94 L 11/22/19 06:29 Weight - Most Recent: 92.986 kg I&O - Last 24 hours: Intake & Output 11/21/19 11/22/19 11/22/19 22:59 06:59 14:59 Intake Total 420 Balance 420 Lab Results - Last 24 hrs: Laboratory Results - last 24 hr 11/22/19 Range/Units 06:26 POC Glucose 180 H (74-106) mg/dL Med Orders - Current: Current Medications Aspirin (Halfprin) 81 mg PO DAILY [facility] Stop: 01/24/20 08:01 Last Admin: 11/21/19 07:19 Dose: 81 mg Atorvastatin Calcium (Lipitor) 80 mg PO DAILY [facility] Last Admin: 11/21/19 07:18 Dose: 80 mg Benzonatate (Tessalon Perles) 100 mg PO TID PRN PRN Reason: Cough Docusate Sodium (Colace) 100 mg PO BID [facility] Last Admin: 11/21/19 19:30 Dose: 100 mg Fenofibrate (Fenofibrate) 134 mg PO DAILY [facility] Last Admin: 11/21/19 07:19 Dose: 134 mg Furosemide (Lasix) 20 mg PO DAILY [facility] Last Admin: 11/21/19 07:19 Dose: 20 mg Insulin Glargine (Lantus) 10 unit SUBCUT DAILY [facility] Last Admin: 11/21/19 07:19 Dose: 10 units Isosorbide Mononitrate (Imdur) 15 mg PO DAILY [facility] Last Admin: 11/21/19 07:18 Dose: 15 mg Lisinopril (Prinivil) 2.5 mg PO DAILY [facility] Last Admin: 11/21/19 07:19 Dose: 2.5 mg Melatonin (Melatonin) 6 mg PO BEDTIME [facility] Last Admin: 11/21/19 19:58 Dose: 6 mg Mirabegron (Myrbetriq) 50 mg PO DAILY [facility] Last Admin: 11/21/19 07:18 Dose: 50 mg Paroxetine HCl (Paxil) 30 mg PO DAILY [facility] Last Admin: 11/21/19 07:19 Dose: 30 mg Fluticasone/Salmeterol (Fluticasone-Salmeterol 113-14 Mcg Powder Inh) 1 puff INH BIDRT [facility] Last Admin: 11/22/19 06:30 Dose: 1 inhalation Senna/Docusate Sodium (Senna Plus) 2 tab PO BEDTIME [facility] Last Admin: 11/21/19 19:30 Dose: 2 tab Tamsulosin HCl (Flomax) 0.4 mg PO BEDTIME [facility] Last Admin: 11/21/19 19:29 Dose: 0.4 mg Ticagrelor (Brilinta) 90 mg PO BID [facility] Last Admin: 11/21/19 19:30 Dose: 90 mg Discontinued Medications Aspirin (Ecotrin) 325 mg PO DAILY [facility] Last Admin: 11/09/19 09:49 Dose: 325 mg Hydrochlorothiazide (Hydrochlorothiazide) 12.5 mg PO DAILY [facility] Non-Formulary Medication (Liraglutide [Victoza]) 18 mg SUBCUT ASDIRECTED [facility] Non-Formulary Medication (Liraglutide [Victoza]) 0.6 mg SUBCUT DAILY [facility] - Exam General: Reports: Alert, Oriented, Cooperative, No Acute Distress HEENT: Reports: Mucous Membr. Moist/[place] Neck: Reports: Supple, Trachea Midline, No Thyromegaly. Denies: Lymphadenopathy Lungs: Reports: Clear to Auscultation, Normal Respiratory Effort Cardiovascular: Reports: Regular Rate, Regular Rhythm, No Murmurs GI/Abdominal Exam: Normal Bowel Sounds, Soft, Non-Tender, No Organomegaly, No Distention, No Mass Extremities: Non-Tender, No Pedal Edema, Normal Capillary Refill Skin: Reports: Warm, Dry, Intact Neurological: Reports: No New Focal Deficit (ROM and strength improved in left hand compared to prior) *Q Meaningful Use (DIS) - VTE *Q VTE Anticoagulation Contraindications: Med/TX Not Indicated/Need
[2019-11-22] MEDS: Mirabegron 25 MG Tab Extended Release PO SCH (09:39)
[2019-11-22] MEDS: Insulin Glarg,Human.Rec.Analog 100 Unit/ML SUBCUT SCH (09:39)
[2019-11-22 09:40] VITALS: BP 125/80
[2019-11-22] MEDS: Fenofibrate,Micronized 134 MG Cap PO SCH (09:40)
[2019-11-22] MEDS: atorvaSTATin 40 MG Tab PO SCH (09:40)
[2019-11-22] MEDS: Ticagrelor 90 MG Tab PO SCH (09:40)
[2019-11-22] MEDS: Lisinopril 2.5 MG Tab PO SCH (09:40)
[2019-11-22] MEDS: Docusate Sodium 100 MG Cap PO SCH (09:40)
[2019-11-22] MEDS: Furosemide 20 MG Tab PO SCH (09:40)
[2019-11-22] MEDS: Isosorbide Mononitrate 30 MG Tab.ER PO SCH (09:41)
[2019-11-22] MEDS: Aspirin 81 MG Tab.EC PO SCH (09:42)
[2019-11-22] MEDS: PARoxetine 20 MG Tab PO SCH (09:42)
== END 2019-11-22 11:25 | disposition home or self-care (01) | DRG 57 ==
LOC: VM.MS 14:39
PROVIDERS: ADMIT Family Medicine; ATTEND Family Medicine
DX: I69.334 Monoplegia of upper limb following cerebral infarction affecting left non-dominant side (principal); S69.90XA Unspecified injury of unspecified wrist, hand and finger(s), initial encounter; I12.9 Hypertensive chronic kidney disease with stage 1 through stage 4 chronic kidney disease, or unspecified chronic kidney disease; E11.22 Type 2 diabetes mellitus with diabetic chronic kidney disease; N18.3 Chronic kidney disease, stage 3 (moderate); Z66 Do not resuscitate; E78.5 Hyperlipidemia, unspecified; I25.10 Atherosclerotic heart disease of native coronary artery without angina pectoris; M19.90 Unspecified osteoarthritis, unspecified site; N40.0 Benign prostatic hyperplasia without lower urinary tract symptoms; G47.33 Obstructive sleep apnea (adult) (pediatric); E78.00 Pure hypercholesterolemia, unspecified; F41.9 Anxiety disorder, unspecified; F32.9 Major depressive disorder, single episode, unspecified; Z95.5 Presence of coronary angioplasty implant and graft; Z79.82 Long term (current) use of aspirin; Z79.899 Other long term (current) drug therapy; Z87.891 Personal history of nicotine dependence; Z68.28 Body mass index [BMI] 28.0-28.9, adult; W19.XXXA Unspecified fall, initial encounter
CPT/HCPCS: 36415; 80048; 82962; 97110-GO; 97110-GP; 97112-GO; 97116-GP; 97161-GP; 97165-GO; 97530-GP; A9270-GY; J1815-GY

== ENCOUNTER 2020-02-17 17:55 | Emergency (ER) | payer MEDICARE, BC ==
--- NOTE | 2020-02-17 18:07 | EDM.PDOC ---
ED HPI GENERAL MEDICAL PROBLEM - General Stated Complaint: ER Time Seen by Provider: 02/17/20 17:58 Source of Information: Reports: Patient History Limitations: Reports: No Limitations - History of Present Illness INITIAL COMMENTS - FREE TEXT/NARRATIVE: Patient comes into the emergency department with complaints of a rash behind his left ear. Patient states that he started developing this rash earlier today right behind his left ear. Patient also states that he has had some side pain for the course of the last week that he has been doctoring and is been unable to obtain relief. Patient states that his side discomfort is characterized as burning throbbing sensation that does radiate only on the left side from the anterior midline around the ribs to the vertebrae. He has been provided pain medication relief in the clinic but it has not helped at all. He states that when he noticed that he had a rash forming around his left ear it appeared to be the same characteristics as the shingles that he is had in the past. Patient states it is very itchy currently. He has not noticed any burning stinging sensation thus far concerned further development. Patient denies any further lesions throughout his body that he can see. And also denies pain, shortness of breath, dizziness, lightheadedness, blurred vision, GI upset, genitourinary concerns, or peripheral edema. Patient states that he has been trying to use Vaseline to cover the area for it has had intense itching and irritation for the day has not offered any relief. Onset: Today Location: Reports: Head Quality: Reports: Other Severity: Mild Improves with: Reports: None Worsens with: Reports: None Context: Reports: Other Associated Symptoms: Reports: No Other Symptoms - Related Data Allergies Allergy/AdvReac Type Severity Reaction Status Date / Time No Known Allergies Allergy Verified 02/17/20 18:00 Home Meds: Home Meds Furosemide [Lasix] 20 mg PO DAILY 02/15/17 [History] Isosorbide Mononitrate [Imdur] 15 mg PO DAILY 02/15/17 [History] Lisinopril 2.5 mg PO DAILY 02/15/17 [History] PARoxetine HCL [Paxil] 30 mg PO DAILY 02/15/17 [History] Tamsulosin HCl [Flomax] 0.4 mg PO BEDTIME 02/15/17 [History] Fenofibrate 160 mg PO DAILY 10/22/19 [History] Mirabegron [Myrbetriq] 50 mg PO DAILY 10/22/19 [History] Aspirin [Aspirin EC] 81 mg PO DAILY 11/08/19 [History] Docusate Sodium 100 mg PO BID 11/08/19 [History] Fluticasone/Vilanterol [Breo Ellipta 100-25 MCG Inhalation Kit] 1 puff PO DAILY 11/08/19 [History] Melatonin 6 mg PO BEDTIME 11/08/19 [History] Multivitamin [Multi-Day Vitamins] 1 tab PO DAILY 11/08/19 [History] Sennosides/Docusate Sodium [Senna-Docusate Sodium Tablet] 2 tab PO BEDTIME 11/08/19 [History] Ticagrelor [Brilinta] 90 mg PO BID 11/08/19 [History] atorvaSTATin [Lipitor] 80 mg PO DAILY 11/08/19 [History] Insulin Glarg,Human.Rec.Analog [Lantus] 10 unit SUBCUT DAILY #10 ml 11/22/19 [Rx] Acyclovir [Zovirax] 800 mg PO 5XDAY #33 tab 02/17/20 [Rx] Past Medical History HEENT History: Reports: Cataract Other HEENT History: dry eye syndrome. presbyopia. pseudophakos. hypermetopia. sialoadenitis Cardiovascular History: Reports: CAD, High Cholesterol, Hypertension, Stents Respiratory History: Reports: Sleep Apnea Other Respiratory History: dyspenia Gastrointestinal History: Reports: None Genitourinary History: Reports: BPH, Renal Disease Other Genitourinary History: erectile dysfunction. persistant proteinuria Musculoskeletal History: Reports: Back Pain, Chronic, Osteoarthritis Other Musculoskeletal History: bursitis of r shoulder. plabter fascial fibromatosis. left-sided weakness. left foot drop. dupuytren contracture Neurological History: Reports: CVA Psychiatric History: Reports: Anxiety, Depression Endocrine/Metabolic History: Reports: Diabetes, Type II, Obesity/BMI 30+ Hematologic History: Reports: None Immunologic History: Reports: None Oncologic (Cancer) History: Reports: None Dermatologic History: Reports: None - Infectious Disease History Infectious Disease History: Reports: None - Past Surgical History HEENT Surgical History: Reports: Cataract Surgery Cardiovascular Surgical History: Reports: Carotid Stents, Coronary Artery Bypass Neurological Surgical History: Reports: Lumbar Spine Musculoskeletal Surgical History: Reports: Carpal Tunnel, Shoulder Surgery Social & Family History - Family History Cardiac: Reports: CAD - Caffeine Use Caffeine Use: Reports: Coffee Caffeine Use Comment: tid - Living Situation & Occupation Living situation: Reports: , Alone 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 Constitutional: Reports: No Symptoms HEENT: Reports: No Symptoms Respiratory: Reports: No Symptoms Cardiovascular: Reports: No Symptoms Endocrine: Reports: No Symptoms GI/Abdominal: Reports: No Symptoms : Reports: No Symptoms Musculoskeletal: Reports: No Symptoms Neurological: Reports: No Symptoms Psychiatric: Reports: No Symptoms Hematologic/Lymphatic: Reports: No Symptoms Immunologic: Reports: No Symptoms ED EXAM, SKIN/RASH Exam: See Below Exam Limited By: No Limitations General Appearance: Alert, WD/WN, No Apparent Distress Eye Exam: Bilateral Eye: EOMI, PERRL Ears: Normal External Exam, Normal Canal, Hearing Grossly Normal Nose: Normal Inspection, Normal Mucosa, No Blood Throat/Mouth: Normal Inspection, Normal Lips, Normal Voice, No Airway Compromise Head: Atraumatic, Normocephalic, Facial Swelling Neck: Normal Inspection, Supple, Non-Tender, Full Range of Motion Respiratory/Chest: No Respiratory Distress, No Accessory Muscle Use, Chest Non- Tender Cardiovascular: Normal Peripheral Pulses, Regular Rate, Rhythm Extremities: Normal Inspection, Normal Range of Motion, Non-Tender, No Pedal Edema, Normal Capillary Refill Neurological: Alert, Oriented, CN II-XII Intact, Normal Gait Psychiatric: Normal Affect, Normal Mood Skin: Warm Location, Skin: Head (left ear ) Characteristics: Vesicular Associated features: Scaling, Crusting Departure - Departure Time of Disposition: 18:20 Disposition: Home, Self-Care 01 Condition: Good Clinical Impression: Shingles Qualifiers: Herpes zoster complications: without complications Qualified Code(s): B02.9 - Zoster without complications - Discharge Information *PRESCRIPTION DRUG MONITORING PROGRAM REVIEWED*: Not Applicable *COPY OF PRESCRIPTION DRUG MONITORING REPORT IN PATIENT JUAN: Not Applicable Instructions: Neuropathic Pain, Shingles, [id number], Acyclovir tablets or capsules Forms: ED Department Discharge Additional Instructions: 1. rest 2. increase your water intake 3. Continue all at home medications 4. Take acyclovir 1 tablet 5 times a day for 7 days 5. Keep the area covered if draining 6. Avoid small children or women if lesions are draining 7. Activity and diet as tolerated 8. Can take over the counter Tylenol for any pain or discomfort 9. Follow up with PCP if symptoms continue, return, or progress 10. Call with any questions or concerns - Assessment/Plan Assessment:: 1. shingles Plan: 1. Acycloyvir 800mg Given in the ER 2. Acyclovir take home pack and script sent with pt 3. Patient and nursing staff was updated regarding the plan of care 4. Education provided the patient regarding activity, diet, rest, [id number] medication modalities, and follow-up care was provided 5. Patient and family are agreeable to the above plan of care 6. All questions and concerns were addressed with the patient and family prior to discharge
[2020-02-17] MEDS ORDERED: Acyclovir 200 MG Cap PO ONE (18:19)
== END 2020-02-17 18:30 | disposition home or self-care (01) ==
LOC: VM.ED 17:55
DX: B02.9 Zoster without complications (principal); I25.10 Atherosclerotic heart disease of native coronary artery without angina pectoris; E78.00 Pure hypercholesterolemia, unspecified; I10 Essential (primary) hypertension; M19.90 Unspecified osteoarthritis, unspecified site; F41.9 Anxiety disorder, unspecified; F32.9 Major depressive disorder, single episode, unspecified; E11.9 Type 2 diabetes mellitus without complications; E66.9 Obesity, unspecified; Z86.73 Personal history of transient ischemic attack (TIA), and cerebral infarction without residual deficits; Z68.29 Body mass index [BMI] 29.0-29.9, adult; Z95.5 Presence of coronary angioplasty implant and graft; Z79.82 Long term (current) use of aspirin; Z79.4 Long term (current) use of insulin; Z79.899 Other long term (current) drug therapy
CPT/HCPCS: 99282; A9270; 99284-GF

== ENCOUNTER 2020-03-14 08:10 | Emergency (ER) | payer MEDICARE, BC ==
[2020-03-14] MEDS ORDERED: Sodium Chloride 0.9% 10 ML Syringe FLUSH PRN ×2 (08:30→08:33)
[2020-03-14] MEDS ORDERED: Morphine 4 MG/ML Syringe IVPUSH ONE (08:34)
[2020-03-14 09:20] LABS: ANION GAP 10.6 mmol/L (10-20); CHLORIDE,CL 106 mmol/L (98-107); SODIUM,NA 143 mmol/L (136-145)
--- NOTE | 2020-03-14 09:21 | CR ---
[id number] RAD/RAD Chest PA or AP 1V EXAM: FRONTAL CHEST INDICATION: CHEST PAIN. COMPARISON: February 15, 2017. DISCUSSION: Chronic right seventh rib fracture. Mild chronic basilar scarring with no definite infiltrates. Stable mild cardiomegaly without evidence of edema. Sternotomy. IMPRESSION: 1. No acute findings. Francisco Hooks MD 03/14/20 0920 Thank you for allowing us to participate in the care of your patient.
[2020-03-14] MEDS ORDERED: Sodium Chloride 0.9% 500 ML IV ONE (09:25)
--- NOTE | 2020-03-14 09:43 | EDM.PDOC ---
ED HPI GENERAL MEDICAL PROBLEM - General Chief Complaint: Chest Pain Time Seen by Provider: 03/14/20 08:15 Source of Information: Reports: Patient History Limitations: Reports: No Limitations - History of Present Illness INITIAL COMMENTS - FREE TEXT/NARRATIVE: Pt. presents to ER with complaints of respirophasic chest pain. Pt. states that the pain started yesterday afternoon. He states it is worse with movement, and initially was only present with movement. He states that now the pain is constant and potentiated with movement and deep breathing. Denies any fever or chills. No jaw, arm, neck or back pain. Denies any cough or hemoptysis. Denies any sore throat, abdominal pain, diarrhea or other covid symptoms. Pt. denies any trauma to the area. Denies any shortness of breath, but states that the pain is worse with deep breathing. Denies any increased peripheral edema. Onset Date: 03/14/20 Improves with: Reports: Immobilization, Rest Worsens with: Reports: Breathing, Movement Associated Symptoms: Reports: Chest Pain. Denies: Confusion, Cough, cough w sputum, Diaphoresis, Fever/Chills, Malaise, Nausea/Vomiting, Shortness of Breath, Syncope, Weakness Middle Chest Pain Score (Numeric/FACES): 10 - Related Data Allergies Allergy/AdvReac Type Severity Reaction Status Date / Time No Known Allergies Allergy Verified 03/14/20 09:44 Home Meds: Home Meds Furosemide [Lasix] 20 mg PO DAILY 02/15/17 [History] Isosorbide Mononitrate [Imdur] 15 mg PO DAILY 02/15/17 [History] Lisinopril 2.5 mg PO DAILY 02/15/17 [History] PARoxetine HCL [Paxil] 30 mg PO DAILY 02/15/17 [History] Tamsulosin HCl [Flomax] 0.4 mg PO BEDTIME 02/15/17 [History] Fenofibrate 160 mg PO DAILY 10/22/19 [History] Mirabegron [Myrbetriq] 50 mg PO DAILY 10/22/19 [History] Aspirin [Aspirin EC] 81 mg PO DAILY 11/08/19 [History] Docusate Sodium 100 mg PO BID 11/08/19 [History] Fluticasone/Vilanterol [Breo Ellipta 100-25 MCG Inhalation Kit] 1 puff PO DAILY 11/08/19 [History] Melatonin 6 mg PO BEDTIME 11/08/19 [History] Multivitamin [Multi-Day Vitamins] 1 tab PO DAILY 11/08/19 [History] Sennosides/Docusate Sodium [Senna-Docusate Sodium Tablet] 2 tab PO BEDTIME 11/08/19 [History] Ticagrelor [Brilinta] 90 mg PO BID 11/08/19 [History] atorvaSTATin [Lipitor] 80 mg PO DAILY 11/08/19 [History] Insulin Glarg,Human.Rec.Analog [Lantus] 10 unit SUBCUT DAILY #10 ml 11/22/19 [Rx] Acyclovir [Zovirax] 800 mg PO 5XDAY #33 tab 02/17/20 [Rx] Past Medical History HEENT History: Reports: Cataract Other HEENT History: dry eye syndrome. presbyopia. pseudophakos. hypermetopia. sialoadenitis Cardiovascular History: Reports: CAD, High Cholesterol, Hypertension, Stents Respiratory History: Reports: Sleep Apnea Other Respiratory History: dyspenia Gastrointestinal History: Reports: None Genitourinary History: Reports: BPH, Renal Disease Other Genitourinary History: erectile dysfunction. persistant proteinuria Musculoskeletal History: Reports: Back Pain, Chronic, Osteoarthritis Other Musculoskeletal History: bursitis of r shoulder. plabter fascial fibromatosis. left-sided weakness. left foot drop. dupuytren contracture Neurological History: Reports: CVA Psychiatric History: Reports: Anxiety, Depression Endocrine/Metabolic History: Reports: Diabetes, Type II, Obesity/BMI 30+ Hematologic History: Reports: None Immunologic History: Reports: None Oncologic (Cancer) History: Reports: None Dermatologic History: Reports: None - Infectious Disease History Infectious Disease History: Reports: None - Past Surgical History HEENT Surgical History: Reports: Cataract Surgery Cardiovascular Surgical History: Reports: Carotid Stents, Coronary Artery Bypass Neurological Surgical History: Reports: Lumbar Spine Musculoskeletal Surgical History: Reports: Carpal Tunnel, Shoulder Surgery Social & Family History - Family History Cardiac: Reports: CAD - Caffeine Use Caffeine Use: Reports: Coffee Caffeine Use Comment: tid - Living Situation & Occupation Living situation: Reports: , Alone 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 GENERAL - Review of Systems Review Of Systems: See Below Constitutional: Reports: No Symptoms HEENT: Reports: No Symptoms Respiratory: Reports: Pleuritic Chest Pain Cardiovascular: Reports: Chest Pain Endocrine: Reports: No Symptoms GI/Abdominal: Reports: No Symptoms : Reports: No Symptoms Musculoskeletal: Reports: No Symptoms Skin: Reports: No Symptoms Neurological: Reports: No Symptoms Psychiatric: Reports: No Symptoms Hematologic/Lymphatic: Reports: No Symptoms Immunologic: Reports: No Symptoms ED EXAM, GENERAL - Physical Exam Exam: See Below Exam Limited By: No Limitations General Appearance: Alert, WD/WN, Moderate Distress Nose: Normal Inspection, No Blood Throat/Mouth: Normal Inspection, Normal Lips, Normal Voice, No Airway Compromise Head: Atraumatic, Normocephalic Neck: Normal Inspection, Supple, Non-Tender Respiratory/Chest: No Respiratory Distress, No Accessory Muscle Use, Decreased Breath Sounds, Rhonchi, Other (Unable to take a full breath, otherwise clear) Cardiovascular: Normal Peripheral Pulses, Regular Rate, Rhythm, No Edema, No JVD, No Murmur Peripheral Pulses: 4+: Radial (L) GI/Abdominal: Normal Bowel Sounds, Soft, Non-Tender, No Distention, No Mass Back Exam: Normal Inspection, Full Range of Motion Extremities: Normal Inspection, Normal Range of Motion, Non-Tender, Normal Capillary Refill Neurological: Alert, Oriented, CN II-XII Intact, Normal Cognition, Normal Gait, Normal Reflexes, No Motor/Sensory Deficits Psychiatric: Normal Affect, Normal Mood Skin Exam: Warm, Dry, Intact, Normal Color, No Rash Lymphatic: No Adenopathy EKG INTERPRETATION Rhythm: NSR Kent: Normal P-Wave: Present QRS: Normal ST-T: Normal QT: Normal Course - Vital Signs Last Recorded V/S: Last Vital Signs Temp 36.6 C 03/14/20 08:10 Pulse 63 03/14/20 10:05 Resp 18 03/14/20 10:05 BP 180/83 H 03/14/20 10:05 Pulse Ox 98 03/14/20 10:05 - Orders/Labs/Meds Orders: Active Orders 24 hr Category Date Time Status EKG Documentation Completion [RC] STAT Care 03/14/20 08:31 Active Sodium Chloride 0.9% [Saline Flush] Med 03/14/20 08:30 Active 10 ml FLUSH ASDIRECTED PRN Peripheral IV Insertion Adult [OM.PC] Routine Oth 03/14/20 08:33 Ordered Medication Orders Sodium Chloride (Saline Flush) 10 ml FLUSH ASDIRECTED PRN PRN Reason: Keep Vein Open Labs: Laboratory Tests 03/14/20 03/14/20 03/14/20 Range/Units 08:43 08:43 08:43 WBC 3.5 L (4.0-10.0) x10^3/uL RBC 4.50 (4.5-6.0) x10^6/uL Hgb 13.5 L (14.0-18.0) g/dL Hct 40.0 (40.0-52.0) % MCV 88.9 (78.0-93.0) fL MCH 30.0 (26.0-32.0) pg MCHC 33.8 (32.0-36.0) g/dL RDW Coeff of Linnette 13.1 (10.0-15.0) % Plt Count 104 L (130-400) x10^3/uL Neut % (Auto) 54.0 (50.0-80.0) % Lymph % (Auto) 32.2 (25.0-50.0) % Mcminn % (Auto) 7.3 (2.0-11.0) % Eos % (Auto) 5.9 H (0.0-4.0) % Baso % (Auto) 0.6 (0.2-1.2) % PT 10.1 (9.5-12.3) SEC INR 0.9 L (2.0-3.5) D-Dimer, Quantitative (<=0.58) mg/LFEU Sodium 143 (136-145) mmol/L Potassium 4.6 (3.5-5.1) mmol/L Chloride 106 (98-107) mmol/L Carbon Dioxide 31 (21-32) mmol/L Anion Gap 10.6 (10-20) mmol/L BUN 37 H (7-18) mg/dL Creatinine 2.2 H (0.70-1.30) mg/dL Est Cr Clr Drug Dosing TNP Estimated GFR (MDRD) 29 Glucose 184 H (74-106) mg/dL Calcium 8.8 (8.5-10.1) mg/dL Corrected Calcium 9.28 (8.5-10.1) mg/dL Magnesium 1.7 L (1.8-2.4) mg/dL Total Bilirubin 0.3 (0.2-1.0) mg/dL AST 23 (15-37) U/L ALT 26 (16-63) U/L Alkaline Phosphatase 61 (46-116) U/L Troponin I < 0.017 (<=0.056) ng/mL C-Reactive Protein 0.4 (<=0.9) mg/dL NT-Pro-B Natriuret Pep 259 (<=450) pg/mL Total Protein 6.5 (6.4-8.2) g/dL Albumin 3.4 (3.4-5.0) g/dL Globulin 3.1 Albumin/Globulin Ratio 1.10 // Range/Units 08:43 WBC (4.0-10.0) x10^3/uL RBC (4.5-6.0) x10^6/uL Hgb (14.0-18.0) g/dL Hct (40.0-52.0) % MCV (78.0-93.0) fL MCH (26.0-32.0) pg MCHC (32.0-36.0) g/dL RDW Coeff of Linnette (10.0-15.0) % Plt Count (130-400) x10^3/uL Neut % (Auto) (50.0-80.0) % Lymph % (Auto) (25.0-50.0) % Mcminn % (Auto) (2.0-11.0) % Eos % (Auto) (0.0-4.0) % Baso % (Auto) (0.2-1.2) % PT (9.5-12.3) SEC INR (2.0-3.5) D-Dimer, Quantitative 0.59 H (<=0.58) mg/LFEU Sodium (136-145) mmol/L Potassium (3.5-5.1) mmol/L Chloride (98-107) mmol/L Carbon Dioxide (21-32) mmol/L Anion Gap (10-20) mmol/L BUN (7-18) mg/dL Creatinine (0.70-1.30) mg/dL Est Cr Clr Drug Dosing Estimated GFR (MDRD) Glucose (74-106) mg/dL Calcium (8.5-10.1) mg/dL Corrected Calcium (8.5-10.1) mg/dL Magnesium (1.8-2.4) mg/dL Total Bilirubin (0.2-1.0) mg/dL AST (15-37) U/L ALT (16-63) U/L Alkaline Phosphatase (46-116) U/L Troponin I (<=0.056) ng/mL C-Reactive Protein (<=0.9) mg/dL NT-Pro-B Natriuret Pep (<=450) pg/mL Total Protein (6.4-8.2) g/dL Albumin (3.4-5.0) g/dL Globulin Albumin/Globulin Ratio Meds: Medications Generic Name Dose Route Start Last Admin Trade Name Freq PRN Reason Stop Dose Admin Sodium Chloride 10 ml 03/14/20 08:30 Saline Flush FLUSH ASDIRECTED PRN Keep Vein Open Discontinued Medications Generic Name Dose Route Start Last Admin Trade Name Freq PRN Reason Stop Dose Admin Aspirin 324 mg 03/14/20 10:04 03/14/20 08:11 Aspirin PO 03/14/20 10:05 324 mg ONETIME ONE Administration Sodium Chloride 500 mls @ 500 mls/hr 03/14/20 09:25 03/14/20 09:56 Normal Saline IV 03/14/20 10:24 500 mls/hr ONETIME ONE Administration Iopamidol 100 ml 03/14/20 10:03 03/14/20 10:09 Isovue-300 (61%) IVPUSH 03/14/20 10:04 100 ml ONETIME ONE Administration Morphine Sulfate 4 mg 03/14/20 08:34 03/14/20 08:45 Morphine IVPUSH 03/14/20 08:35 4 mg ONETIME ONE Administration Sodium Chloride 10 ml 03/14/20 08:33 Saline Flush FLUSH ASDIRECTED PRN Keep Vein Open - Radiology Interpretation Free Text/Narrative:: chest x-ray negative. CTA of chest was obtained, as d dimer was positive. No PE, infiltrate, mediastinal mass or adenopathy noted. No other cause for discomfort identified. - Re-Assessments/Exams Free Text/Narrative Re-Assessment/Exam: Pt. was given IV morphine 4mg IV and reported significant improvement in discomfort. Pt. is noted to be coughing quite frequently in the exam room. After the pain medication, he was able to take a deeper breath, and he was noted to have some rhonchi and very mild wheezing on auscultation of his mid lung rodríguez. Departure - Departure Time of Disposition: 11:25 Disposition: Home, Self-Care 01 Clinical Impression: Atypical chest pain, Bronchitis - Discharge Information Instructions: Doxycycline tablets or capsules, Nonspecific Chest Pain, Adult, [id number], Prednisone tablets, Acute Bronchitis, Adult, Probiotics Referrals: Cherelle Tan MD [Primary Care Provider] - Forms: ED Department Discharge Additional Instructions: Doxycycline 100mg 1 tab twice daily for 10 days Prednisone 20mg 2 tabs daily for 6 days You can use a heating pad on your chest if you are having discomfort. Drink plenty of fluids Recheck in clinic in 10-14 days, sooner if not gradually improving. Sepsis Event Note (ED) - Evaluation Sepsis Screening Result: No Definite Risk - Focused Exam Vital Signs: Vital Signs Temp Pulse Resp BP Pulse Ox 03/14/20 10:05 63 18 180/83 H 98 03/14/20 09:26 57 L 16 157/69 H 98 03/14/20 08:10 36.6 C 60 16 176/68 H 95 - Problem List Review Problem List Initiated/Reviewed/Updated: Yes - My Orders Last 24 Hours: My Active Orders 03/14/20 08:30 Sodium Chloride 0.9% [Saline Flush] 10 ml FLUSH ASDIRECTED PRN 03/14/20 08:31 EKG Documentation Completion [RC] STAT 03/14/20 08:33 Peripheral IV Insertion Adult [OM.PC] Routine - Assessment/Plan Last 24 Hours: My Active Orders 03/14/20 08:30 Sodium Chloride 0.9% [Saline Flush] 10 ml FLUSH ASDIRECTED PRN 03/14/20 08:31 EKG Documentation Completion [RC] STAT 03/14/20 08:33 Peripheral IV Insertion Adult [OM.PC] Routine Plan: Doxycycline 100mg 1 tab twice daily for 10 days Prednisone 20mg 2 tabs daily for 6 days You can use a heating pad on your chest if you are having discomfort. Drink plenty of fluids Recheck in clinic in 10-14 days, sooner if not gradually improving.
[2020-03-14] MEDS ORDERED: Iopamidol 612 MG/ML 100 ML Bottle IVPUSH ONE (10:03)
[2020-03-14] MEDS ORDERED: Aspirin 81 MG Tab.Chew PO ONE (10:04)
--- NOTE | 2020-03-14 11:13 | CT ---
[id number] CT/CTA Chest Exam: CTA Chest Clinical Data: CHEST PAIN POSITIVE D-DIMER COMPARISON: NO PREVIOUS SIMILAR EXAM IS AVAILABLE FINDINGS: There are no pulmonary emboli Diffuse atheromatous calcifications are seen There is no mediastinal mass or adenopathy Gallstones are present IMPRESSION: NO PULMONARY EMBOLI Mauricio Segovia MD 03/14/20 [id number] Thank you for allowing us to participate in the care of your patient.
== END 2020-03-14 11:33 | disposition home or self-care (01) ==
LOC: VM.ED 08:10
DX: J40 Bronchitis, not specified as acute or chronic (principal); I10 Essential (primary) hypertension; E78.00 Pure hypercholesterolemia, unspecified; I25.10 Atherosclerotic heart disease of native coronary artery without angina pectoris; E11.9 Type 2 diabetes mellitus without complications; E66.9 Obesity, unspecified; F41.9 Anxiety disorder, unspecified; F32.9 Major depressive disorder, single episode, unspecified; Z79.82 Long term (current) use of aspirin; Z79.899 Other long term (current) drug therapy; Z95.5 Presence of coronary angioplasty implant and graft
CPT/HCPCS: 71045; 71275; 80053; 83735; 83880; 84484; 85025; 85379; 85610; 86140; 93005; 93010; 96361; 96374; 99284; 99285; A9270; J2270; J7040; Q9967

== ENCOUNTER 2020-03-30 11:08 | Emergency (ER) | payer MEDICARE, BC ==
[2020-03-30] MEDS ORDERED: Ketorolac 15 MG/ML SDV IM ONE (11:28)
[2020-03-30] MEDS ORDERED: Take Home: Ketorolac 10 MG Tab, 4 Tab Pack PO ONE (11:32)
[2020-03-30] MEDS ORDERED: Take Home: Cyclobenzaprine 10 MG Tab, 4 Tab Pack PO ONE (11:32)
--- NOTE | 2020-03-30 11:35 | EDM.PDOC ---
ED HPI GENERAL MEDICAL PROBLEM - General Chief Complaint: General Stated Complaint: PAIN L SIDE BACK PAIN Time Seen by Provider: 03/30/20 11:19 Source of Information: Reports: Patient History Limitations: Reports: No Limitations - History of Present Illness INITIAL COMMENTS - FREE TEXT/NARRATIVE: Patient comes into the emergency department with complaints of lower back pain. Patient states that the pain and discomfort started approximately 2 days ago. Patient states that he was not doing anything strenuous and began having the lower back pain. He states that he was sitting in a tractor for long period of time that day and wonders if that was not the cause of the discomfort. Patient denies any recent trauma or chronic history of back pain or injuries. Patient states that it is a sharp shooting pain in the lower back that radiates down the left lateral aspect of his leg. Patient also states that the pain is more significant when trying to bend over. He states that the sharp shooting pain will actually make him lose his breath due to the severity. Patient states that he is sitting and not twisting his back that it feels better. Patient denies any loss of bowel or bladder and states that he is been relatively healthy. Patient denies any chest pain, shortness of breath, dizziness, lightheadedness, GI upset, or peripheral edema. Patient also states that he has full range of motion and CMS is intact. Patient denies any recent COVID-19 exposure or positive test. Onset: Gradual Improves with: Reports: Immobilization Worsens with: Reports: Movement Context: Reports: Other Associated Symptoms: Reports: No Other Symptoms Left Lower Back Pain Score (Numeric/FACES): 9 - Related Data Allergies Allergy/AdvReac Type Severity Reaction Status Date / Time No Known Allergies Allergy Verified 03/30/20 11:17 Home Meds: Home Meds Furosemide [Lasix] 20 mg PO DAILY 02/15/17 [History] Isosorbide Mononitrate [Imdur] 15 mg PO DAILY 02/15/17 [History] Lisinopril 2.5 mg PO DAILY 02/15/17 [History] PARoxetine HCL [Paxil] 30 mg PO DAILY 02/15/17 [History] Tamsulosin HCl [Flomax] 0.4 mg PO BEDTIME 02/15/17 [History] Fenofibrate 160 mg PO DAILY 10/22/19 [History] Mirabegron [Myrbetriq] 50 mg PO DAILY 10/22/19 [History] Aspirin [Aspirin EC] 81 mg PO DAILY 11/08/19 [History] Docusate Sodium 100 mg PO BID 11/08/19 [History] Fluticasone/Vilanterol [Breo Ellipta 100-25 MCG Inhalation Kit] 1 puff PO DAILY 11/08/19 [History] Melatonin 6 mg PO BEDTIME 11/08/19 [History] Multivitamin [Multi-Day Vitamins] 1 tab PO DAILY 11/08/19 [History] Sennosides/Docusate Sodium [Senna-Docusate Sodium Tablet] 2 tab PO BEDTIME 11/08/19 [History] Ticagrelor [Brilinta] 90 mg PO BID 11/08/19 [History] atorvaSTATin [Lipitor] 80 mg PO DAILY 11/08/19 [History] Insulin Glarg,Human.Rec.Analog [Lantus] 10 unit SUBCUT DAILY #10 ml 11/22/19 [Rx] Cyclobenzaprine [Flexeril] 10 mg PO TID PRN #10 tab 03/30/20 [Rx] Ketorolac [Toradol] 10 mg PO TID PRN #10 tab 03/30/20 [Rx] Past Medical History HEENT History: Reports: Cataract Other HEENT History: dry eye syndrome. presbyopia. pseudophakos. hypermetopia. sialoadenitis Cardiovascular History: Reports: CAD, High Cholesterol, Hypertension, Stents Respiratory History: Reports: Sleep Apnea Other Respiratory History: dyspenia Gastrointestinal History: Reports: None Genitourinary History: Reports: BPH, Renal Disease Other Genitourinary History: erectile dysfunction. persistant proteinuria Musculoskeletal History: Reports: Back Pain, Chronic, Osteoarthritis Other Musculoskeletal History: bursitis of r shoulder. plabter fascial fibromatosis. left-sided weakness. left foot drop. dupuytren contracture Neurological History: Reports: CVA Psychiatric History: Reports: Anxiety, Depression Endocrine/Metabolic History: Reports: Diabetes, Type II, Obesity/BMI 30+ Hematologic History: Reports: None Immunologic History: Reports: None Oncologic (Cancer) History: Reports: None Dermatologic History: Reports: None - Infectious Disease History Infectious Disease History: Reports: None - Past Surgical History HEENT Surgical History: Reports: Cataract Surgery Cardiovascular Surgical History: Reports: Carotid Stents, Coronary Artery Bypass Neurological Surgical History: Reports: Lumbar Spine Musculoskeletal Surgical History: Reports: Carpal Tunnel, Shoulder Surgery Social & Family History - Family History Cardiac: Reports: CAD - Caffeine Use Caffeine Use: Reports: Coffee Caffeine Use Comment: tid - Living Situation & Occupation Living situation: Reports: , Alone 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 Constitutional: Reports: No Symptoms HEENT: Reports: No Symptoms Respiratory: Reports: No Symptoms Cardiovascular: Reports: No Symptoms Endocrine: Reports: No Symptoms GI/Abdominal: Reports: No Symptoms : Reports: No Symptoms Skin: Reports: No Symptoms Neurological: Reports: No Symptoms Psychiatric: Reports: No Symptoms Hematologic/Lymphatic: Reports: No Symptoms ED EXAM, GENERAL - Physical Exam Exam: See Below Exam Limited By: No Limitations General Appearance: Alert, WD/WN, No Apparent Distress Head: Atraumatic, Normocephalic Neck: Normal Inspection, Supple, Non-Tender, Full Range of Motion Respiratory/Chest: No Respiratory Distress, Lungs Clear, Normal Breath Sounds, No Accessory Muscle Use, Chest Non-Tender Cardiovascular: Normal Peripheral Pulses, Regular Rate, Rhythm, No Edema Back Exam: Muscle Spasm (tenderness upon palpation with mild tissue swelling left lower lumbar region. No redness, warmth, bruisng, or pus formation. CMS and ROM intact. ) Extremities: Normal Inspection, Normal Range of Motion, Non-Tender, No Pedal Edema, Normal Capillary Refill Neurological: Alert, Oriented, CN II-XII Intact, Normal Gait Psychiatric: Normal Affect, Normal Mood Skin Exam: Warm, Dry, Intact, Normal Color Course - Vital Signs Last Recorded V/S: Last Vital Signs Temp 36.4 C 03/30/20 11:21 Pulse 78 03/30/20 11:21 Resp 16 03/30/20 11:21 BP 158/76 H 03/30/20 11:21 Pulse Ox 96 03/30/20 11:21 - Orders/Labs/Meds Meds: Medications Discontinued Medications Generic Name Dose Route Start Last Admin Trade Name Freq PRN Reason Stop Dose Admin Cyclobenzaprine HCl 1 packet 03/30/20 11:32 03/30/20 11:44 Take Home: Cyclobenzaprine 10 Mg, 4 Tab Pack PO 03/30/20 11:33 1 packet ONETIME ONE Administration Ketorolac Tromethamine 15 mg 03/30/20 11:28 03/30/20 11:43 Toradol IM 03/30/20 11:29 15 mg ONETIME ONE Administration Ketorolac Tromethamine 1 packet 03/30/20 11:32 03/30/20 11:44 Take Home: Ketorolac 10 Mg, 4 Tab Pack PO 03/30/20 11:33 1 packet ONETIME ONE Administration Orphenadrine Citrate 60 mg 03/30/20 11:28 03/30/20 11:44 Norflex IM 03/30/20 11:29 60 mg ONETIME ONE Administration Departure - Departure Time of Disposition: 12:00 Disposition: Home, Self-Care 01 Condition: Good Clinical Impression: Sciatic leg pain Acute lumbar back pain Qualifiers: Back pain laterality: left Sciatica presence: with sciatica Sciatica laterali ty: sciatica of left side Qualified Code(s): M54.42 - Lumbago with sciatica, left side - Discharge Information *PRESCRIPTION DRUG MONITORING PROGRAM REVIEWED*: Not Applicable *COPY OF PRESCRIPTION DRUG MONITORING REPORT IN PATIENT JUAN: Not Applicable Prescriptions: Cyclobenzaprine [Flexeril] 10 mg PO TID PRN #10 tab PRN Reason: Muscle Spasm Ketorolac [Toradol] 10 mg PO TID PRN #10 tab PRN Reason: Pain Instructions: Sciatica, Back Injury Prevention Forms: ED Department Discharge Additional Instructions: 1. rest 2. Can take Toradol and flexiril as needed for pain and spasms 3. Continue all at home medications 4. Activity and diet as tolerated 5. Can take over the counter Tylenol for any pain or discomfort 6. use ice or heat for 20 minutes at a time 3-4 times a day 7. Follow up with PCP if symptoms continue, return, or progress 8. Call with any questions or concerns 9. a referral for physical therapy is also included to be assessed and evaluate The medication you have been prescribed today has a warning it may inhibit your response or action time. It is advised you do not drive or operate any device while using this medications. Use your walker for stability It is also advised this medication can not be shared or given to other individuals for it is against the law and one may be punished in the court of law. Sepsis Event Note (ED) - Focused Exam Vital Signs: Vital Signs Temp Pulse Resp BP Pulse Ox 03/30/20 11:21 36.4 C 78 16 158/76 H 96 - Assessment/Plan Assessment:: 1. left lumbar back pain 2. sciatica Plan: 1. Ice Applied to the affected area 2. Medication offered to the patient- Toradol IM and Norflex IM 3. Take home pack of Toradol and Flexeril provided plus script to be filled tomorrow am 4. PT referral order given to the patient for evaluation and treatment of scia josselyn 5. Education regarding splinting, activity, [id number] medications, and follow-up care provided. 6. All questions and concerns addressed with the patient prior to discharge
== END 2020-03-30 11:50 | disposition home or self-care (01) ==
LOC: VM.ED 11:08
DX: M54.42 Lumbago with sciatica, left side (principal); I10 Essential (primary) hypertension; E78.00 Pure hypercholesterolemia, unspecified; E11.9 Type 2 diabetes mellitus without complications; E66.9 Obesity, unspecified; F41.9 Anxiety disorder, unspecified; F32.9 Major depressive disorder, single episode, unspecified; Z79.4 Long term (current) use of insulin; Z79.82 Long term (current) use of aspirin; Z79.899 Other long term (current) drug therapy
CPT/HCPCS: 96372; 99283; A9270-GY; J1885; J2360

== ENCOUNTER 2020-12-25 15:20 | Emergency (ER) | payer MEDICARE, BC ==
[2020-12-25] MEDS ORDERED: Lidocaine 1% with EPINEPHrine 1:100,000 20 ML MDV INFILT STA (15:40)
--- NOTE | 2020-12-25 17:14 | CT ---
[id number] CT/CT Head WO IV EXAM: CT Head WO IV CLINICAL DATA: FALL, HEAD INJURY, ANTICOAGULATION. COMPARISON STUDY: October 2019. FINDINGS: Right MCA distribution encephalomalacia in the high right frontal lobe. Geographic appearing hypodensities scattered throughout the subcortical and periventricular white matter of both cerebral hemispheres. Additionally, there is bilateral symmetric diffuse parenchymal atrophy throughout. Findings are nonspecific but commonly seen as sequela of chronic small vessel disease. Densely calcified atherosclerotic plaque in the intracranial segments of the internal carotid and vertebral arteries. No acute intracranial hemorrhage or extra-axial fluid collection. No hydrocephalus. No CT evidence of acute ischemia. Calvarium is intact. IMPRESSION: No acute intracranial findings. Angelito David MD 12/25/20 2027 Thank you for allowing us to participate in the care of your patient.
--- NOTE | 2020-12-25 17:15 | CR ---
[id number] RAD/RAD Elbow Left 3V Min Exam: RAD Elbow Left 3V Min Indication:FALL, LEFT ELBOW PROXIMAL FOREARM PAIN, LARGE Comparison: No prior imaging for comparison. Discussion/Impression: Slightly elevated anterior fat pad suggesting elbow joint effusion. However, there is no radiographically evident fracture or dislocation. Mild triceps enthesopathy at its olecranon attachment. Angelito David MD 12/25/20 1183 Thank you for allowing us to participate in the care of your patient.
--- NOTE | 2020-12-25 17:45 | EDM.PDOC ---
ED HPI GENERAL MEDICAL PROBLEM - General Chief Complaint: Laceration Stated Complaint: FELL AT HOME Time Seen by Provider: 12/25/20 15:25 Source of Information: Reports: Patient History Limitations: Reports: No Limitations - History of Present Illness INITIAL COMMENTS - FREE TEXT/NARRATIVE: Patient comes emergency department today from home with complaints of a fall as well as a laceration to his left elbow. Patient does have a history of longstanding antiplatelet therapy with Brilinta and aspirin. Just prior to arrival the patient was at home when he was walking into his house carrying some groceries he lost his balance and fell forward. He struck his head on the ground. There was no loss of consciousness. He also struck his left elbow on the ground. He contacted family member who brought him to the emergency department. Upon arrival the patient denies any headache. No visual acuity changes. No weakness dizziness lightheadedness. No neck pain or back pain. No nausea or vomiting. No chest pain no shortness of breath or difficulty breathing. No abdominal pain nausea or vomiting. No paresthesias of his upper or lower extremities. No change in the functionality of his upper or lower extremities. He only complains of a laceration to his left elbow and abrasion to his right forehead and a small skin tear to his right elbow. His last tetanus immunization was earlier this year. Prior to his fall he had no weakness dizziness lightheadedness chest pain palpitations. He clearly relates that he slipped and fell and struck his head on the ground. Left Elbow Pain Score (Numeric/FACES): 4 - Related Data Allergies Allergy/AdvReac Type Severity Reaction Status Date / Time No Known Allergies Allergy Verified 12/25/20 15:40 Home Meds: Home Meds Furosemide [Lasix] 20 mg PO DAILY 02/15/17 [History] Isosorbide Mononitrate [Imdur] 15 mg PO DAILY 02/15/17 [History] Lisinopril 2.5 mg PO DAILY 02/15/17 [History] PARoxetine HCL [Paxil] 30 mg PO DAILY 02/15/17 [History] Tamsulosin HCl [Flomax] 0.4 mg PO BEDTIME 02/15/17 [History] Fenofibrate 160 mg PO DAILY 10/22/19 [History] Mirabegron [Myrbetriq] 50 mg PO DAILY 10/22/19 [History] Aspirin [Aspirin EC] 81 mg PO DAILY 11/08/19 [History] Docusate Sodium 100 mg PO BID 11/08/19 [History] Fluticasone/Vilanterol [Breo Ellipta 100-25 MCG Inhalation Kit] 1 puff PO DAILY 11/08/19 [History] Melatonin 6 mg PO BEDTIME 11/08/19 [History] Multivitamin [Multi-Day Vitamins] 1 tab PO DAILY 11/08/19 [History] Sennosides/Docusate Sodium [Senna-Docusate Sodium Tablet] 2 tab PO BEDTIME 11/08/19 [History] Ticagrelor [Brilinta] 90 mg PO BID 11/08/19 [History] atorvaSTATin [Lipitor] 80 mg PO DAILY 11/08/19 [History] Insulin Glarg,Human.Rec.Analog [Lantus] 10 unit SUBCUT DAILY #10 ml 11/22/19 [Rx] Cyclobenzaprine [Flexeril] 10 mg PO TID PRN #10 tab 03/30/20 [Rx] Ketorolac [Toradol] 10 mg PO TID PRN #10 tab 03/30/20 [Rx] Past Medical History HEENT History: Reports: Cataract Other HEENT History: dry eye syndrome. presbyopia. pseudophakos. hypermetopia. sialoadenitis Cardiovascular History: Reports: CAD, High Cholesterol, Hypertension, Stents Respiratory History: Reports: Sleep Apnea Other Respiratory History: dyspenia Gastrointestinal History: Reports: None Genitourinary History: Reports: BPH, Renal Disease Other Genitourinary History: erectile dysfunction. persistant proteinuria Musculoskeletal History: Reports: Back Pain, Chronic, Osteoarthritis Other Musculoskeletal History: bursitis of r shoulder. plabter fascial fibromatosis. left-sided weakness. left foot drop. dupuytren contracture Neurological History: Reports: CVA Psychiatric History: Reports: Anxiety, Depression Endocrine/Metabolic History: Reports: Diabetes, Type II, Obesity/BMI 30+ Hematologic History: Reports: None Immunologic History: Reports: None Oncologic (Cancer) History: Reports: None Dermatologic History: Reports: None - Infectious Disease History Infectious Disease History: Reports: None - Past Surgical History HEENT Surgical History: Reports: Cataract Surgery Cardiovascular Surgical History: Reports: Carotid Stents, Coronary Artery Bypass Neurological Surgical History: Reports: Lumbar Spine Musculoskeletal Surgical History: Reports: Carpal Tunnel, Shoulder Surgery Social & Family History - Family History Cardiac: Reports: CAD - Tobacco Use Tobacco Use Status *Q: Unknown Ever Used Tobacco - Caffeine Use Caffeine Use: Reports: Coffee Caffeine Use Comment: tid - Living Situation & Occupation Living situation: Reports: , Alone 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 ED EXAM, SKIN/RASH Exam: See Below Exam Limited By: No Limitations General Appearance: Alert, WD/WN, No Apparent Distress Eye Exam: Bilateral Eye: EOMI, PERRL Ears: Normal External Exam, Normal TMs Nose: Normal Inspection, Normal Mucosa Throat/Mouth: Normal Inspection, Normal Lips, Normal Teeth, Normal Gums, Normal Oropharynx, Normal Voice Head: Normocephalic. No: Atraumatic (Scalp is atraumatic he does have a small abrasion to the right upper forehead without crepitus bruising swelling or hematoma. Rest of the face is atraumatic.) Neck: Normal Inspection, Supple, Non-Tender, Full Range of Motion. No: Tender Lateral, Tender Midline Respiratory/Chest: No Respiratory Distress, Lungs Clear, Normal Breath Sounds, No Accessory Muscle Use, Chest Non-Tender Cardiovascular: Normal Peripheral Pulses, Regular Rate, Rhythm Peripheral Pulses: 2+: Radial (L), Radial (R), Posterior Tibial (L), Posterior Tibial (R), Dorsalis Pedis (L), Dorsalis Pedis (R) GI/Abdominal: Normal Bowel Sounds, Soft, Non-Tender Back Exam: Normal Inspection, Full Range of Motion. No: Paraspinal Tenderness, Vertebral Tenderness Extremities: Normal Range of Motion, Non-Tender, No Pedal Edema, Normal Capillary Refill, Other (On the left proximal posterior forearm there is a 8.5 cm laceration distal to proximal that extends into the subcutaneous tissue does not extend past the muscle fascia. There is no overt tendon injury. There is no active bleeding. The wound is not dirty. He is able to flex and extend the elbow ). No: Normal Inspection (There is a small superficial skin tear on the right lateral elbow on the lateral epicondyle. There is no bruising swelling ecchymosis change in his range of motion or tenderness in the joint. No active bleeding.) Psychiatric: Normal Affect, Normal Mood Skin: Warm, Dry, Intact, Normal Color, No Rash ED SKIN PROCEDURES - Laceration/Wound Repair Left Middle Posterior Arm Appearance: Subcutaneous, Linear, Irregular, Clean Distal NVT: Neuro & Vascular Intact Anesthetic Type: Local Local Anesthesia - Lidocaine (Xylocaine): 1% with EPI Local Anesthetic Volume: Other (12) Skin Prep: Chlorhexidine (Hibiciens), Saline Saline Irrigation (cc's): 500 Exploration/Debridement/Repair: Wound Explored, In a Bloodless Field, Explored to Base, No Foreign Material Found, Wound Margins Revised Closed with: Sutures Lac/Wound length In cm: 8.5 Suture Size: 5-0 Suture Type: Running Suture Size: 4-0 # of Sutures: 5 Repaired with: Vicryl Sterile Dressing Applied: Nurse Tetanus Status Addressed: Yes Complications: No Right Elbow Appearance: Superficial, Clean Distal NVT: Neuro & Vascular Intact Skin Prep: Chlorhexidine (Hibiciens), Saline Saline Irrigation (cc's): 50 Closed with: Steri-Strips Lac/Wound length In cm: 2.5 Course - Vital Signs Last Recorded V/S: Last Vital Signs Temp 98.1 F 12/25/20 15:30 Pulse 78 12/25/20 15:30 Resp 18 12/25/20 15:30 BP 117/60 12/25/20 15:30 Pulse Ox 94 L 12/25/20 15:30 - Orders/Labs/Meds Meds: Medications Discontinued Medications Generic Name Dose Route Start Last Admin Trade Name Freq PRN Reason Stop Dose Admin Lidocaine/Epinephrine 20 ml 12/25/20 15:40 12/25/20 17:15 Lidocaine 1% With Epinephrine 1:100,000 20 Ml Mdv INFILT 12/25/20 15:41 20 ml ONETIME STA Administration - Radiology Interpretation Free Text/Narrative:: CT of the head per radiology shows no acute intracranial findings. X-ray of the left elbow per radiology shows slightly elevated anterior fat pad suggesting joint elbow effusion. No evidence of radiographic fracture or dislocation. Mild triceps enthesopathy at the olecranon attachment - Re-Assessments/Exams Free Text/Narrative Re-Assessment/Exam: 12/25/20 The abrasion on the forehead does not need any repair. X-ray of the elbow shows no foreign bodies or bony deformity. Small joint effusion with a fat pad elevation. Range of motion is appropriate without paresthesias. CT of the head was negative. Please see procedure note for the multilayer closure of the rather large laceration of the left posterior proximal elbow. Patient tolerated the procedure well above. Discharge directions as below are explained to the patient he was comfortable with this plan and his questions were answered. Departure - Departure Time of Disposition: 17:35 Disposition: Home, Self-Care 01 Clinical Impression: detention (current) use of antithrombotics/antiplatelets Fall Qualifiers: Encounter type: initial encounter Qualified Code(s): W19.XXXA - Unspecified fall, initial encounter Abrasion of forehead Qualifiers: Encounter type: initial encounter Qualified Code(s): S00.81XA - Abrasion of other part of head, initial encounter Skin tear of right elbow without complication Qualifiers: Encounter type: initial encounter Qualified Code(s): S51.011A - Laceration without foreign body of right elbow, initial encounter Laceration of elbow, left Qualifiers: Encounter type: initial encounter Qualified Code(s): S51.012A - Laceration wi thout foreign body of left elbow, initial encounter - Discharge Information Instructions: Skin Tear, [id number], RICE Therapy for Routine Care of Injuries, [id number], Laceration Care, Adult, [id number], Pain Medicine Instructions, [id number], Abrasion, [id number] Referrals: Cherelle Tan MD [Primary Care Provider] - Forms: ED Department Discharge Additional Instructions: Abrasion cleanse daily with soap and water. Bacitracin and bandage until healed. Ice to the sore areas of the elbow or forehead. Tylenol as needed for pain. Laceration Cleanse the wound twice daily with soap and water. Bacitracin bandage until applied. Watch for signs of infection. Sutures out in 10 days. Running water over the top is fine no soaking in water such as pools hot tubs lakes streams puddles or cricks. Return to the ED if new or worsening symptoms. Follow up with PCP in the next 10 days for suture removal and recheck if any concerns. Sepsis Event Note (ED) - Evaluation Sepsis Screening Result: No Definite Risk - Focused Exam Vital Signs: Vital Signs Temp Pulse Resp BP Pulse Ox 12/25/20 15:30 98.1 F 78 18 117/60 94 L
== END 2020-12-25 17:45 | disposition home or self-care (01) ==
LOC: VM.ED 15:20
DX: S51.012A Laceration without foreign body of left elbow, initial encounter (principal); S00.81XA Abrasion of other part of head, initial encounter; I25.10 Atherosclerotic heart disease of native coronary artery without angina pectoris; E78.00 Pure hypercholesterolemia, unspecified; I10 Essential (primary) hypertension; E11.9 Type 2 diabetes mellitus without complications; E66.9 Obesity, unspecified; Z68.30 Body mass index [BMI] 30.0-30.9, adult; Z79.82 Long term (current) use of aspirin; Z79.899 Other long term (current) drug therapy; Z79.4 Long term (current) use of insulin; Z79.01 Long term (current) use of anticoagulants; W18.39XA Other fall on same level, initial encounter; Y92.009 Unspecified place in unspecified non-institutional (private) residence as the place of occurrence of the external cause
CPT/HCPCS: 12034; 70450; 73080-LT; 99284-25

== ENCOUNTER 2021-04-16 12:03 | Emergency (ER) | payer MEDICARE, BC ==
[2021-04-16] MEDS ORDERED: Sodium Chloride 0.9% 10 ML Syringe FLUSH PRN (12:26)
[2021-04-16] MEDS ORDERED: Albuterol/Ipratropium 3.0-0.5 MG/3 ML Neb Soln NEB ONE (12:27)
[2021-04-16] MEDS ORDERED: cefTRIAXone 1 GM Vial IVPUSH ONE (12:27)
[2021-04-16] MEDS ORDERED: methylPREDNISolone Sodium Succinate 125 MG/2 ML SDV IVPUSH ONE (12:27)
--- NOTE | 2021-04-16 13:00 | CR ---
[id number] RAD/RAD Chest PA or AP 1V EXAM: RAD Chest PA or AP 1V INDICATION: SOB COMPARISON: March 14, 2020. DISCUSSION/IMPRESSION: Cardiomegaly and central vascular congestion. Median sternotomy. Those findings are similar to the prior examination. Lungs are clear. No pleural effusion or pneumothorax. Angelito David MD 04/16/21 4102 Thank you for allowing us to participate in the care of your patient.
[2021-04-16 13:04] LABS: CHLORIDE,CL 107 mmol/L (98-107); SODIUM,NA 141 mmol/L (136-145)
--- NOTE | 2021-04-16 13:10 | EDM.PDOC ---
ED HPI GENERAL MEDICAL PROBLEM - General Chief Complaint: Respiratory Problem Stated Complaint: sob Time Seen by Provider: 04/16/21 12:10 Source of Information: Reports: Patient History Limitations: Reports: No Limitations - History of Present Illness INITIAL COMMENTS - FREE TEXT/NARRATIVE: Patient comes into the emergency department complaints of shortness of breath. Patient states that the shortness of breath started approximately 1 week ago however over the course the last 24 to 48 hours it has increased potentially. Patient states that he also has some chest tightness that has developed in the last 48 hours. He denies it progressing or getting worse in any fashion and states that it is just midsternal. He has noticed that it hurts more after he has an episode of severe coughing. He denies any shortness of breath at rest, dizziness, lightheadedness, blurred vision, peripheral edema.That is short of breath is more prevalent when he is up and moving around. He also states that he has coughing episodes that are significant and he is coughing up large amounts of phlegm. Onset: Gradual Location: Reports: Chest Quality: Reports: Other Severity: Moderate Improves with: Reports: Rest Worsens with: Reports: Movement Associated Symptoms: Reports: Cough, cough w sputum, Malaise - Related Data Allergies Allergy/AdvReac Type Severity Reaction Status Date / Time No Known Allergies Allergy Verified 04/16/21 13:42 Home Meds: Home Meds Furosemide [Lasix] 20 mg PO DAILY 02/15/17 [History] Isosorbide Mononitrate [Imdur] 15 mg PO DAILY 02/15/17 [History] Lisinopril 2.5 mg PO DAILY 02/15/17 [History] PARoxetine HCL [Paxil] 30 mg PO DAILY 02/15/17 [History] Tamsulosin HCl [Flomax] 0.4 mg PO BEDTIME 02/15/17 [History] Fenofibrate 160 mg PO DAILY 10/22/19 [History] Mirabegron [Myrbetriq] 50 mg PO DAILY 10/22/19 [History] Aspirin [Aspirin EC] 81 mg PO DAILY 11/08/19 [History] Docusate Sodium 100 mg PO BID 11/08/19 [History] Fluticasone/Vilanterol [Breo Ellipta 100-25 MCG Inhalation Kit] 1 puff PO DAILY 04/23/20 [History] Melatonin 6 mg PO BEDTIME 11/08/19 [History] Multivitamin [Multi-Day Vitamins] 1 tab PO DAILY 11/08/19 [History] Sennosides/Docusate Sodium [Senna-Docusate Sodium Tablet] 2 tab PO BEDTIME 11/08/19 [History] Ticagrelor [Brilinta] 90 mg PO BID 11/08/19 [History] atorvaSTATin [Lipitor] 80 mg PO DAILY 11/08/19 [History] Insulin Glarg,Human.Rec.Analog [Lantus] 10 unit SUBCUT DAILY #10 ml 11/22/19 [Rx] Cyclobenzaprine [Flexeril] 10 mg PO TID PRN #10 tab 03/30/20 [Rx] Ketorolac [Toradol] 10 mg PO TID PRN #10 tab 03/30/20 [Rx] Albuterol/Ipratropium [DuoNeb 3.0-0.5 MG/3 ML] 3 ml .XX Q4HR PRN #1 box 04/16/21 [Rx] Azithromycin 500 mg PO DAILY #5 tablet 04/16/21 [Rx] predniSONE [Prednisone] 20 mg PO DAILY #5 tablet 04/16/21 [Rx] Past Medical History HEENT History: Reports: Cataract Other HEENT History: dry eye syndrome. presbyopia. pseudophakos. hypermetopia. sialoadenitis Cardiovascular History: Reports: CAD, High Cholesterol, Hypertension, Stents Respiratory History: Reports: Sleep Apnea Other Respiratory History: dyspenia Gastrointestinal History: Reports: None Genitourinary History: Reports: BPH, Renal Disease Other Genitourinary History: erectile dysfunction. persistant proteinuria Musculoskeletal History: Reports: Back Pain, Chronic, Osteoarthritis Other Musculoskeletal History: bursitis of r shoulder. plabter fascial fibromatosis. left-sided weakness. left foot drop. dupuytren contracture Neurological History: Reports: CVA Psychiatric History: Reports: Anxiety, Depression Endocrine/Metabolic History: Reports: Diabetes, Type II, Obesity/BMI 30+ Hematologic History: Reports: None Immunologic History: Reports: None Oncologic (Cancer) History: Reports: None Dermatologic History: Reports: None - Infectious Disease History Infectious Disease History: Reports: None - Past Surgical History HEENT Surgical History: Reports: Cataract Surgery Cardiovascular Surgical History: Reports: Carotid Stents, Coronary Artery Bypass Neurological Surgical History: Reports: Lumbar Spine Musculoskeletal Surgical History: Reports: Carpal Tunnel, Shoulder Surgery Social & Family History - Family History Cardiac: Reports: CAD - Caffeine Use Caffeine Use: Reports: Coffee Caffeine Use Comment: tid - Living Situation & Occupation Living situation: Reports: , Alone 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 Constitutional: Reports: No Symptoms HEENT: Reports: No Symptoms Respiratory: Reports: Shortness of Breath, Pleuritic Chest Pain, Cough, Sputum Cardiovascular: Reports: No Symptoms Endocrine: Reports: No Symptoms GI/Abdominal: Reports: No Symptoms : Reports: No Symptoms Musculoskeletal: Reports: No Symptoms Skin: Reports: No Symptoms Neurological: Reports: No Symptoms Psychiatric: Reports: No Symptoms Hematologic/Lymphatic: Reports: No Symptoms Immunologic: Reports: No Symptoms ED EXAM, GENERAL - Physical Exam Exam: See Below Exam Limited By: No Limitations General Appearance: Alert, WD/WN, No Apparent Distress Eye Exam: Bilateral Eye: PERRL Head: Atraumatic, Normocephalic Neck: Normal Inspection, Supple, Non-Tender Respiratory/Chest: Decreased Breath Sounds, Crackles, Wheezing, Accessory Muscle Use Cardiovascular: Normal Peripheral Pulses, Regular Rate, Rhythm, No Edema Back Exam: Normal Inspection, Full Range of Motion Extremities: Normal Inspection, Normal Range of Motion, Non-Tender, No Pedal Edema, Normal Capillary Refill Neurological: Alert, Oriented, CN II-XII Intact, Normal Gait Psychiatric: Normal Affect, Normal Mood Course - Vital Signs Last Recorded V/S: Last Vital Signs Temp 35.7 C L 04/16/21 12:05 Pulse 74 04/16/21 12:05 Resp 24 H 04/16/21 12:05 BP 141/67 H 04/16/21 12:05 Pulse Ox 87 L 04/16/21 12:05 - Orders/Labs/Meds Orders: Active Orders 24 hr Category Date Time Status EKG Documentation Completion [RC] STAT Care 04/16/21 12:26 Active Oxygen Therapy [RC] ASDIRECTED Care 04/16/21 12:26 Active RT Aerosol Therapy [RC] ASDIRECTED Care 04/16/21 12:27 Active Sodium Chloride 0.9% [Saline Flush] Med 04/16/21 12:26 Active 10 ml FLUSH ASDIRECTED PRN Peripheral IV Insertion Adult [OM.PC] Stat Oth 04/16/21 12:26 Ordered Medication Orders Sodium Chloride (Sodium Chloride 0.9% 10 Ml Syringe) 10 ml FLUSH ASDIRECTED PRN PRN Reason: Keep Vein Open Labs: Laboratory Tests 04/16/21 04/16/21 04/16/21 Range/Units 12:15 12:25 12:25 WBC 4.2 (4.0-10.0) x10^3/uL RBC 4.34 L (4.5-6.0) x10^6/uL Hgb 13.4 L (14.0-18.0) g/dL Hct 39.2 L (40.0-52.0) % MCV 90.3 (78.0-93.0) fL MCH 30.9 (26.0-32.0) pg MCHC 34.2 (32.0-36.0) g/dL RDW Coeff of Linnette 12.0 (10.0-15.0) % Plt Count 115 L (130-400) x10^3/uL Immature Gran % (Auto) 0.50 H (0.00-0.43) % Neut % (Auto) 71.3 (50.0-80.0) % Lymph % (Auto) 17.9 L (25.0-50.0) % [place] % (Auto) 6.9 (2.0-11.0) % Eos % (Auto) 2.9 (0.0-4.0) % Baso % (Auto) 0.5 (0.2-1.2) % Neut # (Auto) 3.0 (1.8-7.7) x10^3/uL Lymph # (Auto) 0.8 L (1.0-4.8) x10^3/uL [place] # (Auto) 0.3 (0.0-0.8) x10^3/uL Eos # (Auto) 0.1 (0.0-0.5) x10^3/uL Baso # (Auto) 0.0 (0.0-0.2) x10^3/uL Immature Gran # (Auto) 0.02 (0.00-0.07) x10^3/uL Sodium 141 (136-145) mmol/L Potassium 5.0 (3.5-5.1) mmol/L Chloride 107 (98-107) mmol/L Carbon Dioxide 25 (21-32) mmol/L Anion Gap 14.0 (5-15) mmol/L BUN 44 H (7-18) mg/dL Creatinine 2.6 H (0.70-1.30) mg/dL Est Cr Clr Drug Dosing TNP Estimated GFR (MDRD) 24 Glucose 263 H (70-99) mg/dL Calcium 8.3 L (8.5-10.1) mg/dL Corrected Calcium 9.0 (8.5-10.1) mg/dL Total Bilirubin 0.3 (0.2-1.0) mg/dL AST 20 (15-37) U/L ALT 26 (16-63) U/L Alkaline Phosphatase 55 (46-116) U/L Troponin I High Sens 37 (<=76) ng/L NT-Pro-B Natriuret Pep 715 H (<=450) pg/mL Total Protein 6.1 L (6.4-8.2) g/dL Albumin 3.1 L (3.4-5.0) g/dL Globulin 3.0 Albumin/Globulin Ratio 1.03 SARS CoV-2 RNA Rapid CHONG Negative (NEGATIVE) Meds: Medications Generic Name Dose Route Start Last Admin Trade Name Freq PRN Reason Stop Dose Admin Sodium Chloride 10 ml 04/16/21 12:26 Sodium Chloride 0.9% 10 Ml Syringe FLUSH ASDIRECTED PRN Keep Vein Open Discontinued Medications Generic Name Dose Route Start Last Admin Trade Name Freq PRN Reason Stop Dose Admin Albuterol/Ipratropium 3 ml 04/16/21 12:27 04/16/21 12:43 Albuterol/Ipratropium 3.0-0.5 Mg/3 Ml Neb Soln NEB 04/16/21 12:28 3 ml ONETIME ONE Administration Ceftriaxone Sodium 1 gm 04/16/21 12:27 04/16/21 12:43 Ceftriaxone 1 Gm Vial IVPUSH 04/16/21 12:28 1 gm ONETIME ONE Administration Methylprednisolone Sodium Succinate 125 mg 04/16/21 12:27 04/16/21 12:43 Methylprednisolone Sodium Succinate 125 Mg/2 Ml Sdv IVPUSH 04/16/21 12:28 125 mg ONETIME ONE Administration - Re-Assessments/Exams Free Text/Narrative Re-Assessment/Exam: 04/16/21 13:52 feeling better, states SOB is much better and discomfort is chest has resolved from the past 2 days Departure - Departure Time of Disposition: 13:50 Disposition: Home, Self-Care 01 Condition: Good Clinical Impression: Bronchitis - Discharge Information *PRESCRIPTION DRUG MONITORING PROGRAM REVIEWED*: Not Applicable *COPY OF PRESCRIPTION DRUG MONITORING REPORT IN PATIENT JUAN: Not Applicable Prescriptions: Azithromycin 500 mg PO DAILY #5 tablet Albuterol/Ipratropium [DuoNeb 3.0-0.5 MG/3 ML] 3 ml .XX Q4HR PRN #1 box PRN Reason: Cough predniSONE [Prednisone] 20 mg PO DAILY #5 tablet Instructions: Shortness of Breath, Adult, [id number], Acute Bronchitis, Adult Forms: ED Department Discharge Additional Instructions: 1. rest 2. increase your water intake 3. Take all antibiotics as prescribed even if feeling better 4. Take a probiotic while on antibiotics to help promote healthy GI motility 5. Activity and diet as tolerated 6. Can use Ibuprofen and tylenol for any fever or discomfort 7. Follow up with your PCP or return if symptoms progress or worsen 8. Education provided to you regarding your illness, probiotics, antibiotic prescribed 9. Call with any questions or concerns Sepsis Event Note (ED) - Focused Exam Vital Signs: Vital Signs Temp Pulse Resp BP Pulse Ox 04/16/21 12:05 35.7 C L 74 24 H 141/67 H 87 L - My Orders Last 24 Hours: My Active Orders 04/16/21 12:26 EKG Documentation Completion [RC] STAT Oxygen Therapy [RC] ASDIRECTED Sodium Chloride 0.9% [Saline Flush] 10 ml FLUSH ASDIRECTED PRN Peripheral IV Insertion Adult [OM.PC] Stat 04/16/21 12:27 RT Aerosol Therapy [RC] ASDIRECTED - Assessment/Plan Last 24 Hours: My Active Orders 04/16/21 12:26 EKG Documentation Completion [RC] STAT Oxygen Therapy [RC] ASDIRECTED Sodium Chloride 0.9% [Saline Flush] 10 ml FLUSH ASDIRECTED PRN Peripheral IV Insertion Adult [OM.PC] Stat 04/16/21 12:27 RT Aerosol Therapy [RC] ASDIRECTED Assessment:: 1. Shortness of breath 2. Acute Bronchitis Plan: 1. Labs completed in the ER. Results reviewed with the patient 2. IV initiated in the emergency department 3. EKG completed in ER. Results reviewed with the patient 4. Neb treatment completed in ER 5. Covid-19 test completed- negative 6. Rocephin IV given in the ER 8. Azithromycin, prednisone, and steroids script sent with patient 9. Patient and nursing staff was updated regarding the plan of care 10. Education provided the patient regarding activity, diet, rest, over -the-counter medication modalities, and follow-up care was provided 11. Patient and family are agreeable to the above plan of care 12. All questions and concerns were addressed with the patient and family prior to discharge
== END 2021-04-16 14:00 | disposition home or self-care (01) ==
LOC: VM.ED 12:03
DX: J40 Bronchitis, not specified as acute or chronic (principal); I25.10 Atherosclerotic heart disease of native coronary artery without angina pectoris; E78.00 Pure hypercholesterolemia, unspecified; I10 Essential (primary) hypertension; E11.9 Type 2 diabetes mellitus without complications; E66.9 Obesity, unspecified; Z68.32 Body mass index [BMI] 32.0-32.9, adult; Z95.5 Presence of coronary angioplasty implant and graft; Z86.73 Personal history of transient ischemic attack (TIA), and cerebral infarction without residual deficits; Z79.4 Long term (current) use of insulin; Z79.82 Long term (current) use of aspirin; Z79.899 Other long term (current) drug therapy; Z20.822 Contact with and (suspected) exposure to COVID-19
CPT/HCPCS: 71045; 80053; 83880; 84484; 85025; 93005; 94640; 94760; 96374; 96375; 99285-25; J0696; J2930; J7620-GY; U0002

== ENCOUNTER 2021-04-24 07:53 | Inpatient (IN) | payer MEDICARE, BC ==
--- NOTE | 2021-04-24 08:24 | EDM.PDOC ---
ED HPI GENERAL MEDICAL PROBLEM - General Chief Complaint: Respiratory Problem Stated Complaint: SOB,FALLING Time Seen by Provider: 04/24/21 07:53 Source of Information: Reports: Patient History Limitations: Reports: No Limitations - History of Present Illness INITIAL COMMENTS - FREE TEXT/NARRATIVE: Department with complaints of shortness of breath. Patient states that he has been short of breath of the last 1 to 2 weeks. Patient states that he was diagnosed with bronchitis approximately 1 week ago and was divided Solu-Medrol, and azithromycin. He states that he did start feeling better after he was provided the medication. He states that shortness of breath has progressed in the last 24 hours. Patient does not feel that he has recent exposure to COVID- 19 but is unsure completely. Patient denies any active chest pain, dizziness, lightheadedness, nausea, vomiting, or peripheral edema. Onset: Sudden Quality: Reports: Other Severity: Moderate Improves with: Reports: None Worsens with: Reports: None Associated Symptoms: Reports: No Other Symptoms - Related Data Allergies Allergy/AdvReac Type Severity Reaction Status Date / Time No Known Allergies Allergy Verified 04/24/21 09:22 Home Meds: Home Meds Furosemide [Lasix] 20 mg PO DAILY 02/15/17 [History] Isosorbide Mononitrate [Imdur] 15 mg PO DAILY 02/15/17 [History] Lisinopril 2.5 mg PO DAILY 02/15/17 [History] PARoxetine HCL [Paxil] 30 mg PO DAILY 02/15/17 [History] Tamsulosin HCl [Flomax] 0.4 mg PO BEDTIME 02/15/17 [History] Fenofibrate 160 mg PO DAILY 10/22/19 [History] Mirabegron [Myrbetriq] 50 mg PO DAILY 10/22/19 [History] Aspirin [Aspirin EC] 81 mg PO DAILY 11/08/19 [History] Docusate Sodium 100 mg PO BID 11/08/19 [History] Fluticasone/Vilanterol [Breo Ellipta 100-25 MCG Inhalation Kit] 1 puff PO DAILY 11/08/19 [History] Melatonin 6 mg PO BEDTIME 11/08/19 [History] Multivitamin [Multi-Day Vitamins] 1 tab PO DAILY 11/08/19 [History] Sennosides/Docusate Sodium [Senna-Docusate Sodium Tablet] 2 tab PO BEDTIME 11/08/19 [History] Ticagrelor [Brilinta] 90 mg PO BID 11/08/19 [History] atorvaSTATin [Lipitor] 80 mg PO DAILY 11/08/19 [History] Insulin Glarg,Human.Rec.Analog [Lantus] 10 unit SUBCUT DAILY #10 ml 11/22/19 [Rx] Cyclobenzaprine [Flexeril] 10 mg PO TID PRN #10 tab 03/30/20 [Rx] Ketorolac [Toradol] 10 mg PO TID PRN #10 tab 03/30/20 [Rx] Albuterol/Ipratropium [DuoNeb 3.0-0.5 MG/3 ML] 3 ml .XX Q4HR PRN #1 box 04/16/21 [Rx] Azithromycin 500 mg PO DAILY #5 tablet 04/16/21 [Rx] predniSONE [Prednisone] 20 mg PO DAILY #5 tablet 04/16/21 [Rx] Past Medical History HEENT History: Reports: Cataract Other HEENT History: dry eye syndrome. presbyopia. pseudophakos. hypermetopia. sialoadenitis Cardiovascular History: Reports: CAD, High Cholesterol, Hypertension, Stents Respiratory History: Reports: Sleep Apnea Other Respiratory History: dyspenia Gastrointestinal History: Reports: None Genitourinary History: Reports: BPH, Renal Disease Other Genitourinary History: erectile dysfunction. persistant proteinuria Musculoskeletal History: Reports: Back Pain, Chronic, Osteoarthritis Other Musculoskeletal History: bursitis of r shoulder. plabter fascial fibromatosis. left-sided weakness. left foot drop. dupuytren contracture Neurological History: Reports: CVA Psychiatric History: Reports: Anxiety, Depression Endocrine/Metabolic History: Reports: Diabetes, Type II, Obesity/BMI 30+ Hematologic History: Reports: None Immunologic History: Reports: None Oncologic (Cancer) History: Reports: None Dermatologic History: Reports: None - Infectious Disease History Infectious Disease History: Reports: None - Past Surgical History HEENT Surgical History: Reports: Cataract Surgery Cardiovascular Surgical History: Reports: Carotid Stents, Coronary Artery Bypass Neurological Surgical History: Reports: Lumbar Spine Musculoskeletal Surgical History: Reports: Carpal Tunnel, Shoulder Surgery Social & Family History - Family History Cardiac: Reports: CAD - Caffeine Use Caffeine Use: Reports: Coffee Caffeine Use Comment: tid - Living Situation & Occupation Living situation: Reports: , Alone 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 Constitutional: Reports: No Symptoms HEENT: Reports: No Symptoms Respiratory: Reports: Pleuritic Chest Pain, Cough Cardiovascular: Reports: No Symptoms Endocrine: Reports: No Symptoms GI/Abdominal: Reports: No Symptoms : Reports: No Symptoms Musculoskeletal: Reports: No Symptoms Skin: Reports: No Symptoms Neurological: Reports: No Symptoms Psychiatric: Reports: No Symptoms Hematologic/Lymphatic: Reports: No Symptoms Immunologic: Reports: No Symptoms ED EXAM, GENERAL - Physical Exam Exam: See Below Exam Limited By: No Limitations General Appearance: Alert, WD/WN, No Apparent Distress Head: Atraumatic, Normocephalic Neck: Normal Inspection, Supple, Non-Tender, Full Range of Motion Respiratory/Chest: Respiratory Distress Cardiovascular: Normal Peripheral Pulses, Regular Rate, Rhythm, No Edema Back Exam: Normal Inspection, Full Range of Motion Extremities: Normal Inspection, Normal Range of Motion, Non-Tender, No Pedal Edema, Normal Capillary Refill Neurological: Alert, Oriented, Normal Cognition, Normal Gait Psychiatric: Normal Affect, Normal Mood Skin Exam: Warm, Dry, Intact Course - Vital Signs Last Recorded V/S: Last Vital Signs Temp Pulse 81 04/24/21 08:39 Resp 20 04/24/21 08:39 BP 149/62 H 04/24/21 08:39 Pulse Ox 94 L 04/24/21 08:39 - Orders/Labs/Meds Orders: Active Orders 24 hr Category Date Time Status Admission Status [Patient Status] [ADT] Routine ADT 04/24/21 10:12 Active RT Aerosol Therapy [RC] ASDIRECTED Care 04/24/21 08:54 Active Chest 1V Frontal [CR] Stat Exams 04/24/21 08:53 Ordered Sodium Chloride 0.9% [Saline Flush] Med 04/24/21 08:55 Active 10 ml FLUSH ASDIRECTED PRN Peripheral IV Insertion Adult [OM.PC] Stat Oth 04/24/21 08:55 Ordered Medication Orders Sodium Chloride (Sodium Chloride 0.9% 10 Ml Syringe) 10 ml FLUSH ASDIRECTED PRN PRN Reason: Keep Vein Open Labs: Laboratory Tests 04/24/21 04/24/21 04/24/21 Range/Units 08:11 09:09 09:09 WBC 6.0 (4.0-10.0) x10^3/uL RBC 4.39 L (4.5-6.0) x10^6/uL Hgb 13.5 L (14.0-18.0) g/dL Hct 40.8 (40.0-52.0) % MCV 92.9 (78.0-93.0) fL MCH 30.8 (26.0-32.0) pg MCHC 33.1 (32.0-36.0) g/dL RDW Coeff of [place]innette 12.3 (10.0-15.0) % Plt Count 132 (130-400) x10^3/uL Immature Gran % (Auto) 0.70 H (0.00-0.43) % Neut % (Auto) 77.2 (50.0-80.0) % Lymph % (Auto) 13.3 L (25.0-50.0) % [place] % (Auto) 6.5 (2.0-11.0) % Eos % (Auto) 2.0 (0.0-4.0) % Baso % (Auto) 0.3 (0.2-1.2) % Neut # (Auto) 4.6 (1.8-7.7) x10^3/uL Lymph # (Auto) 0.8 L (1.0-4.8) x10^3/uL [place] # (Auto) 0.4 (0.0-0.8) x10^3/uL Eos # (Auto) 0.1 (0.0-0.5) x10^3/uL Baso # (Auto) 0.0 (0.0-0.2) x10^3/uL Immature Gran # (Auto) 0.04 (0.00-0.07) x10^3/uL D-Dimer, Quantitative (<=0.58) mg/LFEU Sodium 141 (136-145) mmol/L Potassium 5.2 H (3.5-5.1) mmol/L Chloride 107 (98-107) mmol/L Carbon Dioxide 25 (21-32) mmol/L Anion Gap 14.2 (5-15) mmol/L BUN 47 H (7-18) mg/dL Creatinine 2.8 H (0.70-1.30) mg/dL Est Cr Clr Drug Dosing 21.29 mL/min Estimated GFR (MDRD) 22 Glucose 253 H (70-99) mg/dL Lactic Acid (0.4-2.0) mmol/L Calcium 8.4 L (8.5-10.1) mg/dL Corrected Calcium 9.4 (8.5-10.1) mg/dL Total Bilirubin 0.3 (0.2-1.0) mg/dL AST 23 (15-37) U/L ALT 27 (16-63) U/L Alkaline Phosphatase 53 (46-116) U/L Creatine Kinase 171 (39-308) U/L Troponin I High Sens 118 H* (<=76) ng/L NT-Pro-B Natriuret Pep 677 H (<=450) pg/mL Total Protein 5.9 L (6.4-8.2) g/dL Albumin 2.7 L (3.4-5.0) g/dL Globulin 3.2 Albumin/Globulin Ratio 0.84 Influenza Type A RNA Negative (NEGATIVE) RSV RNA (INAAT) Negative (NEGATIVE) Influenza Type B RNA Negative (NEGATIVE) SARS-CoV-2 RNA (CHONG) Negative (NEGATIVE) 04/24/21 04/24/21 Range/Units 09:09 09:09 WBC (4.0-10.0) x10^3/uL RBC (4.5-6.0) x10^6/uL Hgb (14.0-18.0) g/dL Hct (40.0-52.0) % MCV (78.0-93.0) fL MCH (26.0-32.0) pg MCHC (32.0-36.0) g/dL RDW Coeff of [place] (10.0-15.0) % Plt Count (130-400) x10^3/uL Immature Gran % (Auto) (0.00-0.43) % Neut % (Auto) (50.0-80.0) % Lymph % (Auto) (25.0-50.0) % [place] % (Auto) (2.0-11.0) % Eos % (Auto) (0.0-4.0) % Baso % (Auto) (0.2-1.2) % Neut # (Auto) (1.8-7.7) x10^3/uL Lymph # (Auto) (1.0-4.8) x10^3/uL [place] # (Auto) (0.0-0.8) x10^3/uL Eos # (Auto) (0.0-0.5) x10^3/uL Baso # (Auto) (0.0-0.2) x10^3/uL Immature Gran # (Auto) (0.00-0.07) x10^3/uL D-Dimer, Quantitative 1.19 H (<=0.58) mg/LFEU Sodium (136-145) mmol/L Potassium (3.5-5.1) mmol/L Chloride (98-107) mmol/L Carbon Dioxide (21-32) mmol/L Anion Gap (5-15) mmol/L BUN (7-18) mg/dL Creatinine (0.70-1.30) mg/dL Est Cr Clr Drug Dosing mL/min Estimated GFR (MDRD) Glucose (70-99) mg/dL Lactic Acid 1.1 (0.4-2.0) mmol/L Calcium (8.5-10.1) mg/dL Corrected Calcium (8.5-10.1) mg/dL Total Bilirubin (0.2-1.0) mg/dL AST (15-37) U/L ALT (16-63) U/L Alkaline Phosphatase (46-116) U/L Creatine Kinase (39-308) U/L Troponin I High Sens (<=76) ng/L NT-Pro-B Natriuret Pep (<=450) pg/mL Total Protein (6.4-8.2) g/dL Albumin (3.4-5.0) g/dL Globulin Albumin/Globulin Ratio Influenza Type A RNA (NEGATIVE) RSV RNA (INAAT) (NEGATIVE) Influenza Type B RNA (NEGATIVE) SARS-CoV-2 RNA (CHONG) (NEGATIVE) Meds: Medications Generic Name Dose Route Start Last Admin Trade Name Freq PRN Reason Stop Dose Admin Sodium Chloride 10 ml 04/24/21 08:55 Sodium Chloride 0.9% 10 Ml Syringe FLUSH ASDIRECTED PRN Keep Vein Open Discontinued Medications Generic Name Dose Route Start Last Admin Trade Name Freq PRN Reason Stop Dose Admin Albuterol/Ipratropium 3 ml 04/24/21 08:54 04/24/21 09:11 Albuterol/Ipratropium 3.0-0.5 Mg/3 Ml Neb Soln NEB 04/24/21 08:55 3 ml ONETIME ONE Administration Methylprednisolone Sodium Succinate 125 mg 04/24/21 08:55 04/24/21 09:18 Methylprednisolone Sodium Succinate 125 Mg/2 Ml Sdv IVPUSH 04/24/21 08:56 125 mg ONETIME ONE Administration Departure - Departure Time of Disposition: 10:15 Disposition: Admitted As Inpatient 68 Condition: Fair Clinical Impression: COPD exacerbation, Elevated troponin, Elevated d-dimer Respiratory failure Qualifiers: Chronicity: acute Respiratory failure complication: hypoxia and hypercapnia Qualified Code(s): J96.01 - Acute respiratory failure with hypoxia; J96.02 - Acute respiratory failure with hypercapnia - Discharge Information *PRESCRIPTION DRUG MONITORING PROGRAM REVIEWED*: Not Applicable *COPY OF PRESCRIPTION DRUG MONITORING REPORT IN PATIENT JUAN: Not Applicable Referrals: Cherelle Tan MD [Primary Care Provider] - Sepsis Event Note (ED) - Focused Exam Vital Signs: Vital Signs Pulse Resp BP Pulse Ox 04/24/21 08:39 81 20 149/62 H 94 L 04/24/21 08:17 84 21 H 135/66 95 - My Orders Last 24 Hours: My Active Orders 04/24/21 08:53 Chest 1V Frontal [CR] Stat 04/24/21 08:54 RT Aerosol Therapy [RC] ASDIRECTED 04/24/21 08:55 Sodium Chloride 0.9% [Saline Flush] 10 ml FLUSH ASDIRECTED PRN Peripheral IV Insertion Adult [OM.PC] Stat 04/24/21 10:12 Admission Status [Patient Status] [ADT] Routine - Assessment/Plan Last 24 Hours: My Active Orders 04/24/21 08:53 Chest 1V Frontal [CR] Stat 04/24/21 08:54 RT Aerosol Therapy [RC] ASDIRECTED 04/24/21 08:55 Sodium Chloride 0.9% [Saline Flush] 10 ml FLUSH ASDIRECTED PRN Peripheral IV Insertion Adult [OM.PC] Stat 04/24/21 10:12 Admission Status [Patient Status] [ADT] Routine Assessment:: 1. Respiratory failure 2. Elevated Troponin 3. frequent falls 4. Elevated D. Dimer 5. COPD exacerbation Plan: 1. Labs completed in the ER. Results reviewed with the patient 2. IV initiated in the emergency department 3. Chest xray completed 4. EKG completed- No acute changes noted. Sinus no ST-elevation 5. Solumedrol IV given 6. Duoneb given in the ER 7. O2 supplied due to shortness of breath 8. Patient will be admitted to acute care with Dr. Tan who will assume care and management of the patient 9. Education provided the patient regarding activity, diet, rest, [id number] medication modalities, and follow-up care was provided 10. Patient and family are agreeable to the above plan of care 11. All questions and concerns were addressed with the patient and family prior to admit 12. Patient and family discussed code status and he wishes to be a code 2- no intubation, no chest compression and no defibrillator 13. Covid/RSV/INF testing- negative
[2021-04-24 08:53] LABS: CORONAVIRUS COVID-19 NAA NEGATIVE (NEGATIVE); RESPIRATORY SYNCYTIAL VIR NAA NEGATIVE (NEGATIVE)
[2021-04-24] MEDS ORDERED: Albuterol/Ipratropium 3.0-0.5 MG/3 ML Neb Soln NEB ONE (08:54)
[2021-04-24] MEDS ORDERED: methylPREDNISolone Sodium Succinate 125 MG/2 ML SDV IVPUSH ONE (08:55)
[2021-04-24 09:44] LABS: ANION GAP 14.2 mmol/L (5-15)
--- NOTE | 2021-04-24 11:52 | CR ---
[id number] RAD/RAD Chest PA or AP 1V EXAM: SINGLE VIEW CHEST. INDICATION: SHORTNESS OF BREATH COMPARISON: CORRELATION IS MADE WITH 2020 FINDINGS: The lungs are clear. The cardiomediastinal contour is stable Median sternotomy sutures again are seen IMPRESSION: NO PNEUMONIA OR EDEMA Mauricio Segovia MD 04/24/21 [id number] Thank you for allowing us to participate in the care of your patient.
--- NOTE | 2021-04-24 13:00 | PCM.HP.2 ---
H&P History of Present Illness - General Date of Service: 04/24/21 Admit Problem/Dx: Admission Diagnosis/Problem Admission Diagnosis/Problem COPD, Moderate chronic obstructive pulmonary disease Source of Information: Patient History Limitations: Reports: No Limitations - History of Present Illness Initial Comments - Free Text/Narative: Mr. Figueroa is an 85 yo male with PMH of COPD, HTN, CAD, h/o CVA, carotid artery disease, APPLE, HLD, diabetes, obesity, depression and anxiety, BPH, and CKD who presented to the ER for evaluation of left arm tightness that started this morning. He mainly was concerned as this is how the symptoms for his CVA occurred with tightness in his left arm. That symptom completely resolved while in the ER. However, he was also noted to have O2 saturations in the low 80's on arrival. He has been having more shortness of breath for the past 2 weeks. He has also had more of a productive cough in the past 2 weeks as well. He was seen in the ER since onset of symptoms and did get prescriptions for nebs, steroids, and an antibiotic. He has felt some better but notes that this has not cleared up fully. He is still running in the 80's for his oxygen percentages at home. Then last night he was walking from 1 room in his house to another when he felt like a black sheet was coming over his eyes. He has had this happen in the past and it has resulted in falls. Therefore, he knew he needed to lay down right away. He laid down and pressed his life alert. His neighbor came over to help him get into bed. He slept fine but then woke up with the arm symptoms so called his family to take him to the ER. He is feeling much better on arrival to the floor after the interventions in the ER. He has not had any fever or chills. His appetite has been good. He has not had any vomiting or diarrhea. Things have overall been going well at home with a caregiver coming to check on him twice/week. His family has decided that if he needs 24/7 care that they will move into his home with him rather than having him move to assisted living or residential. - Related Data Allergies/Adverse Reactions: Allergies Allergy/AdvReac Type Severity Reaction Status Date / Time No Known Allergies Allergy Verified 04/24/21 09:22 Home Medications: Home Meds Furosemide [Lasix] 20 mg PO DAILY 02/15/17 [History] Isosorbide Mononitrate [Imdur] 15 mg PO DAILY 02/15/17 [History] Tamsulosin HCl [Flomax] 0.4 mg PO BEDTIME 02/15/17 [History] Fenofibrate 160 mg PO DAILY 10/22/19 [History] Docusate Sodium 100 mg PO BID 11/08/19 [History] Melatonin 6 mg PO BEDTIME 11/08/19 [History] Sennosides/Docusate Sodium [Senna-Docusate Sodium Tablet] 2 tab PO BEDTIME 11/07 [History] Aspirin [Aspirin EC] 325 mg PO DAILY 04/24/21 [History] Cholecalciferol (Vitamin D3) [Vitamin D3] 1,000 unit PO DAILY 04/24/21 [History] Cyclobenzaprine [Flexeril] 5 mg PO BEDTIME PRN 04/24/21 [History] Insulin Detemir [Levemir] 32 unit SUBCUT BEDTIME 04/24/21 [History] Oxybutynin Chloride [Oxybutynin Chloride ER] 5 mg PO BEDTIME 04/24/21 [History] Rosuvastatin Calcium 40 mg PO DAILY 04/24/21 [History] Sertraline [Zoloft] 50 mg PO DAILY 04/24/21 [History] lisinopriL [Lisinopril] 10 mg PO DAILY 04/24/21 [History] Past Medical History HEENT History: Reports: Cataract Other HEENT History: dry eye syndrome. presbyopia. pseudophakos. hypermetopia. sialoadenitis Cardiovascular History: Reports: CAD, High Cholesterol, Hypertension, Stents Respiratory History: Reports: COPD, Sleep Apnea Other Respiratory History: dyspenia Gastrointestinal History: Reports: None Genitourinary History: Reports: BPH, Renal Disease Other Genitourinary History: erectile dysfunction. persistant proteinuria Musculoskeletal History: Reports: Back Pain, Chronic, Osteoarthritis Other Musculoskeletal History: bursitis of r shoulder. plabter fascial fibromatosis. left-sided weakness. left foot drop. dupuytren contracture Neurological History: Reports: CVA Psychiatric History: Reports: Anxiety, Depression Endocrine/Metabolic History: Reports: Diabetes, Type II, Obesity/BMI 30+ Hematologic History: Reports: None Immunologic History: Reports: None Oncologic (Cancer) History: Reports: None Dermatologic History: Reports: None - Infectious Disease History Infectious Disease History: Reports: Measles, Mumps, Novel Coronavirus - Past Surgical History HEENT Surgical History: Reports: Cataract Surgery Cardiovascular Surgical History: Reports: Carotid Stents, Coronary Artery Bypass Neurological Surgical History: Reports: Lumbar Spine Musculoskeletal Surgical History: Reports: Carpal Tunnel, Shoulder Surgery Social & Family History - Family History Cardiac: Reports: CAD - Tobacco Use Tobacco Use Status *Q: Former Tobacco User - Caffeine Use Caffeine Use: Reports: Coffee Caffeine Use Comment: tid - Alcohol Use Alcohol Use History: No Alcohol Use in Last Twelve Months: Yes Alcohol Use Frequency: Rarely - Recreational Drug Use Recreational Drug Use: No - Living Situation & Occupation Living situation: Reports: , Alone 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) H&P Review of Systems - Review of Systems: Review Of Systems: See Below General: Reports: No Symptoms HEENT: Reports: No Symptoms Pulmonary: Reports: Shortness of Breath, Cough Cardiovascular: Reports: No Symptoms Gastrointestinal: Reports: No Symptoms Genitourinary: Reports: No Symptoms Musculoskeletal: Reports: No Symptoms Skin: Reports: No Symptoms Psychiatric: Reports: No Symptoms Neurological: Reports: No Symptoms Exam - Exam Exam: See Below - Vital Signs Vital Signs: Last Vital Signs Temp 36.4 C 04/24/21 10:36 Pulse 65 04/24/21 10:36 Resp 16 04/24/21 10:36 BP 136/73 04/24/21 10:36 Pulse Ox 94 L 04/24/21 10:36 Weight: 107.048 kg - Exam General: Alert, Oriented, Cooperative HEENT: Conjunctiva Clear, Mucosa Moist & [place], Posterior Pharynx Clear, Pupils Equal, Pupils Reactive Neck: Supple, Trachea Midline. No: Lymphadenopathy, Thyromegaly Lungs: Clear to Auscultation, Normal Respiratory Effort Cardiovascular: Regular Rate, Regular Rhythm, Normal S1, Normal S2 GI/Abdominal Exam: Normal Bowel Sounds, Soft, Non-Tender, No Organomegaly, No Distention, No Mass Extremities: Normal Inspection, Non-Tender, Normal Capillary Refill, Pedal Edema (trace bilaterally) Peripheral Pulses: 2+: Radial (L), Radial (R) Skin: Warm, Dry, Intact Neuro Extensive - Mental Status: Alert, Oriented x3, Other (neuro exam at baseline - non-focal except weakness in his left hand which has been present since his CVA) - Patient Data Lab Results Last 24 hrs: Laboratory Results - last 24 hr 04/24/21 04/24/21 04/24/21 Range/Units 08:11 09:09 09:09 WBC 6.0 (4.0-10.0) x10^3/uL RBC 4.39 L (4.5-6.0) x10^6/uL Hgb 13.5 L (14.0-18.0) g/dL Hct 40.8 (40.0-52.0) % MCV 92.9 (78.0-93.0) fL MCH 30.8 (26.0-32.0) pg MCHC 33.1 (32.0-36.0) g/dL RDW Coeff of [place] 12.3 (10.0-15.0) % Plt Count 132 (130-400) x10^3/uL Immature Gran % (Auto) 0.70 H (0.00-0.43) % Neut % (Auto) 77.2 (50.0-80.0) % Lymph % (Auto) 13.3 L (25.0-50.0) % Cannon % (Auto) 6.5 (2.0-11.0) % Eos % (Auto) 2.0 (0.0-4.0) % Baso % (Auto) 0.3 (0.2-1.2) % Neut # (Auto) 4.6 (1.8-7.7) x10^3/uL Lymph # (Auto) 0.8 L (1.0-4.8) x10^3/uL Cannon # (Auto) 0.4 (0.0-0.8) x10^3/uL Eos # (Auto) 0.1 (0.0-0.5) x10^3/uL Baso # (Auto) 0.0 (0.0-0.2) x10^3/uL Immature Gran # (Auto) 0.04 (0.00-0.07) x10^3/uL D-Dimer, Quantitative (<=0.58) mg/LFEU Sodium 141 (136-145) mmol/L Potassium 5.2 H (3.5-5.1) mmol/L Chloride 107 (98-107) mmol/L Carbon Dioxide 25 (21-32) mmol/L Anion Gap 14.2 (5-15) mmol/L BUN 47 H (7-18) mg/dL Creatinine 2.8 H (0.70-1.30) mg/dL Est Cr Clr Drug Dosing 21.29 mL/min Estimated GFR (MDRD) 22 Glucose 253 H (70-99) mg/dL Lactic Acid (0.4-2.0) mmol/L Calcium 8.4 L (8.5-10.1) mg/dL Corrected Calcium 9.4 (8.5-10.1) mg/dL Total Bilirubin 0.3 (0.2-1.0) mg/dL AST 23 (15-37) U/L ALT 27 (16-63) U/L Alkaline Phosphatase 53 (46-116) U/L Creatine Kinase 171 (39-308) U/L Troponin I High Sens 118 H* (<=76) ng/L NT-Pro-B Natriuret Pep 677 H (<=450) pg/mL Total Protein 5.9 L (6.4-8.2) g/dL Albumin 2.7 L (3.4-5.0) g/dL Globulin 3.2 Albumin/Globulin Ratio 0.84 Influenza Type A RNA Negative (NEGATIVE) RSV RNA (INAAT) Negative (NEGATIVE) Influenza Type B RNA Negative (NEGATIVE) SARS-CoV-2 RNA (CHONG) Negative (NEGATIVE) 04/24/21 04/24/21 04/24/21 Range/Units 09:09 09:09 12:06 WBC (4.0-10.0) x10^3/uL RBC (4.5-6.0) x10^6/uL Hgb (14.0-18.0) g/dL Hct (40.0-52.0) % MCV (78.0-93.0) fL MCH (26.0-32.0) pg MCHC (32.0-36.0) g/dL RDW Coeff of [place] (10.0-15.0) % Plt Count (130-400) x10^3/uL Immature Gran % (Auto) (0.00-0.43) % Neut % (Auto) (50.0-80.0) % Lymph % (Auto) (25.0-50.0) % Cannon % (Auto) (2.0-11.0) % Eos % (Auto) (0.0-4.0) % Baso % (Auto) (0.2-1.2) % Neut # (Auto) (1.8-7.7) x10^3/uL Lymph # (Auto) (1.0-4.8) x10^3/uL Cannon # (Auto) (0.0-0.8) x10^3/uL Eos # (Auto) (0.0-0.5) x10^3/uL Baso # (Auto) (0.0-0.2) x10^3/uL Immature Gran # (Auto) (0.00-0.07) x10^3/uL D-Dimer, Quantitative 1.19 H 1.13 H (<=0.58) mg/LFEU Sodium (136-145) mmol/L Potassium (3.5-5.1) mmol/L Chloride (98-107) mmol/L Carbon Dioxide (21-32) mmol/L Anion Gap (5-15) mmol/L BUN (7-18) mg/dL Creatinine (0.70-1.30) mg/dL Est Cr Clr Drug Dosing mL/min Estimated GFR (MDRD) Glucose (70-99) mg/dL Lactic Acid 1.1 (0.4-2.0) mmol/L Calcium (8.5-10.1) mg/dL Corrected Calcium (8.5-10.1) mg/dL Total Bilirubin (0.2-1.0) mg/dL AST (15-37) U/L ALT (16-63) U/L Alkaline Phosphatase (46-116) U/L Creatine Kinase (39-308) U/L Troponin I High Sens (<=76) ng/L NT-Pro-B Natriuret Pep (<=450) pg/mL Total Protein (6.4-8.2) g/dL Albumin (3.4-5.0) g/dL Globulin Albumin/Globulin Ratio Influenza Type A RNA (NEGATIVE) RSV RNA (INAAT) (NEGATIVE) Influenza Type B RNA (NEGATIVE) SARS-CoV-2 RNA (CHONG) (NEGATIVE) 10/08/21 Range/Units 12:06 WBC (4.0-10.0) x10^3/uL RBC (4.5-6.0) x10^6/uL Hgb (14.0-18.0) g/dL Hct (40.0-52.0) % MCV (78.0-93.0) fL MCH (26.0-32.0) pg MCHC (32.0-36.0) g/dL RDW Coeff of [place] (10.0-15.0) % Plt Count (130-400) x10^3/uL Immature Gran % (Auto) (0.00-0.43) % Neut % (Auto) (50.0-80.0) % Lymph % (Auto) (25.0-50.0) % Cannon % (Auto) (2.0-11.0) % Eos % (Auto) (0.0-4.0) % Baso % (Auto) (0.2-1.2) % Neut # (Auto) (1.8-7.7) x10^3/uL Lymph # (Auto) (1.0-4.8) x10^3/uL Cannon # (Auto) (0.0-0.8) x10^3/uL Eos # (Auto) (0.0-0.5) x10^3/uL Baso # (Auto) (0.0-0.2) x10^3/uL Immature Gran # (Auto) (0.00-0.07) x10^3/uL D-Dimer, Quantitative (<=0.58) mg/LFEU Sodium (136-145) mmol/L Potassium (3.5-5.1) mmol/L Chloride (98-107) mmol/L Carbon Dioxide (21-32) mmol/L Anion Gap (5-15) mmol/L BUN (7-18) mg/dL Creatinine (0.70-1.30) mg/dL Est Cr Clr Drug Dosing mL/min Estimated GFR (MDRD) Glucose (70-99) mg/dL Lactic Acid (0.4-2.0) mmol/L Calcium (8.5-10.1) mg/dL Corrected Calcium (8.5-10.1) mg/dL Total Bilirubin (0.2-1.0) mg/dL AST (15-37) U/L ALT (16-63) U/L Alkaline Phosphatase (46-116) U/L Creatine Kinase (39-308) U/L Troponin I High Sens 115 H* (<=76) ng/L NT-Pro-B Natriuret Pep (<=450) pg/mL Total Protein (6.4-8.2) g/dL Albumin (3.4-5.0) g/dL Globulin Albumin/Globulin Ratio Influenza Type A RNA (NEGATIVE) RSV RNA (INAAT) (NEGATIVE) Influenza Type B RNA (NEGATIVE) SARS-CoV-2 RNA (CHONG) (NEGATIVE) Result Diagrams: 04/24/21 09:09 04/24/21 09:09 Sepsis Event Note - Focused Exam Vital Signs: Vital Signs Temp Pulse Resp BP Pulse Ox 04/24/21 10:36 36.4 C 65 16 136/73 94 L 04/24/21 08:39 81 20 149/62 H 94 L 04/24/21 08:17 84 21 H 135/66 95 - Problem List (1) COPD exacerbation SNOMED Code(s): 978904171 ICD Code: J44.1 - CHRONIC OBSTRUCTIVE PULMONARY DISEASE W (ACUTE) EXACERBATION Status: Acute Current Visit: Yes (2) Respiratory failure SNOMED Code(s): 327946017 ICD Code: J96.90 - RESPIRATORY FAILURE, UNSP, UNSP W HYPOXIA OR HYPERCAPNIA Status: Acute Current Visit: Yes Qualifiers: Chronicity: acute Respiratory failure complication: hypoxia and hypercapnia Qualified Code(s): J96.01 - Acute respiratory failure with hypoxia; J96.02 - Acute respiratory failure with hypercapnia (3) Elevated d-dimer SNOMED Code(s): 634142690 ICD Code: R79.89 - OTHER SPECIFIED ABNORMAL FINDINGS OF BLOOD CHEMISTRY [place]: Acute Current Visit: Yes (4) Elevated troponin SNOMED Code(s): 531884512, 530643203, 143483663 ICD Code: R77.8 - OTHER SPECIFIED ABNORMALITIES OF PLASMA PROTEINS Status: Acute Current Visit: Yes (5) Coronary artery disease SNOMED Code(s): 69169329 ICD Code: I25.10 - ATHSCL HEART DISEASE OF [place] CORONARY ARTERY W/O ANG PCTRS Status: Chronic Current Visit: No Qualifiers: Coronary Disease-Associated Artery/Lesion type: [place] artery [place] vs. transplanted heart: [place] heart Associated angina: without angina Qualified Code(s): I25.10 - Atherosclerotic heart disease of [place] coronary artery without angina pectoris (6) Near syncope SNOMED Code(s): 244698745 ICD Code: R55 - SYNCOPE AND COLLAPSE Status: Acute Current Visit: Yes (7) CKD (chronic kidney disease) SNOMED Code(s): 421207749 ICD Code: N18.9 - CHRONIC KIDNEY DISEASE, UNSPECIFIED Status: Chronic Current Visit: No Qualifiers: Chronic kidney disease stage: stage 3 (moderate) (8) Diabetes SNOMED Code(s): 67432258 ICD Code: E11.9 - TYPE 2 DIABETES MELLITUS WITHOUT COMPLICATIONS Status: Chronic Current Visit: No Qualifiers: Diabetes mellitus type: type 2 Diabetes mellitus manager terminal insulin use: without half-way use Diabetes mellitus complication status: with kidney complications Diabetes mellitus complication detail: with chronic kidney disease (9) H/O: CVA (cerebrovascular accident) SNOMED Code(s): 467368465 ICD Code: Z86.73 - PRSNL HX OF TIA (TIA), AND CEREB INFRC W/O RESID DEFICITS Status: Acute Current Visit: Yes (10) Hemiparesis due to old cerebrovascular accident SNOMED Code(s): 299056894 ICD Code: I69.359 - HEMIPLGA FOLLOWING CEREBRAL INFARCTION AFFECTING UNSP SIDE Status: Acute Current Visit: Yes (11) Carotid stenosis Status: Acute Current Visit: Yes (12) Obesity SNOMED Code(s): 400085267, 705584756 ICD Code: E66.9 - OBESITY, UNSPECIFIED Status: Acute Current Visit: Yes (13) Depression with anxiety SNOMED Code(s): 425352703 ICD Code: F41.8 - OTHER SPECIFIED ANXIETY DISORDERS Status: Acute Current Visit: Yes (14) BPH (benign prostatic hyperplasia) SNOMED Code(s): 611155691 ICD Code: N40.0 - BENIGN PROSTATIC HYPERPLASIA WITHOUT LOWER URINRY TRACT SYMP Status: Chronic Current Visit: No Qualifiers: Lower urinary tract symptom presence: unspecified whether lower urinary tract symptoms present Qualified Code(s): N40.0 - Benign prostatic hyperplasia without lower urinary tract symptoms (15) Hyperlipidemia SNOMED Code(s): 94840006 ICD Code: E78.5 - HYPERLIPIDEMIA, UNSPECIFIED Status: Chronic Current Visit: No Qualifiers: Hyperlipidemia type: unspecified Qualified Code(s): E78.5 - Hyperlipidemia, unspecified (16) Hypertension SNOMED Code(s): 41114541 ICD Code: I10 - ESSENTIAL (PRIMARY) HYPERTENSION Status: Chronic Current Visit: No Qualifiers: Hypertension type: essential hypertension (17) APPLE (obstructive sleep apnea) SNOMED Code(s): 42240922 ICD Code: G47.33 - OBSTRUCTIVE SLEEP APNEA (ADULT) (PEDIATRIC) Status: Chronic Current Visit: No (18) Osteoarthritis SNOMED Code(s): 710997647 ICD Code: M19.90 - UNSPECIFIED OSTEOARTHRITIS, UNSPECIFIED SITE Status: Chronic Current Visit: No Qualifiers: Osteoarthritis location: multiple joints Osteoarthritis type: primary Qualified Code(s): M89.49 - Other hypertrophic osteoarthropathy, multiple sites Problem List Initiated/Reviewed/Updated: Yes Orders Last 24hrs: Active Orders 24 hr Category Date Time Status Admission Status [Patient Status] [ADT] Routine ADT 04/24/21 10:12 Active Dietary Supplements [RC] BIDMEALS Care 04/24/21 12:40 Active RT Aerosol Therapy [RC] ASDIRECTED Care 04/24/21 08:54 Active RT Aerosol Therapy [RC] ASDIRECTED Care 04/24/21 12:44 Ordered Albuterol/Ipratropium [DuoNeb 3.0-0.5 MG/3 ML] Med 04/24/21 15:00 Ordered 3 ml NEB Q4HRRT Doxycycline [Vibramycin] Med 04/24/21 20:00 Active 100 mg PO BID Sodium Chloride 0.9% [Saline Flush] Med 04/24/21 08:55 Active 10 ml FLUSH ASDIRECTED PRN cefTRIAXone [Rocephin] Med 04/24/21 12:45 Active 1 gm IVPUSH DAILY methylPREDNISolone Sod Succ [Solu-MEDROL] Med 04/24/21 18:00 Ordered 40 mg IVPUSH Q12H Peripheral IV Insertion Adult [OM.PC] Stat Oth 04/24/21 08:55 Ordered Medication Orders Albuterol/Ipratropium (Albuterol/Ipratropium 3.0-0.5 Mg/3 Ml Neb Soln) 3 ml NEB Q4HRRT [place]KE Ceftriaxone Sodium (Ceftriaxone 1 Gm Vial) 1 gm IVPUSH DAILY ELKE Doxycycline Hyclate (Doxycycline 100 Mg Cap) 100 mg PO BID [facility] Methylprednisolone Sodium Succinate (Methylprednisolone Sodium Succinate 40 Mg/1 Ml Sdv) 40 mg IVPUSH Q12H [facility] Sodium Chloride (Sodium Chloride 0.9% 10 Ml Syringe) 10 ml FLUSH ASDIRECTED PRN PRN Reason: Keep Vein Open Assessment/Plan Comment:: 85 yo male admitted with hypoxic respiratory failure presumed to be secondary to COPD exacerbation. #1 COPD exacerbation #2 Acute hypoxic respiratory failure - Meets 3/3 criteria for COPD exacerbation. No pneumonia seen on CXR and does not meet sepsis criteria. - Regardless, will do further antibiotic therapy. Took azithromycin 2 weeks ago; therefore, will treat with ceftriaxone and doxycycline for now. Likely only needs ceftriaxone x 2 doses and can then be on doxycycline monotherapy. - Will also do 3 more doses of solu-medrol and then transition to PO prednisone. - DuoNebs scheduled q4 hours. - Viral testing negative. #3 Elevated d-dimer - Clinical history is not consistent with a PE based on indolent nature of symp coreen onset as well as duration x 2 weeks without further clinical decompensation. - Patient's renal function prohibits CTA. Based on low clinical suspicion, transfer for V/Q scan is also felt to be unwarranted. Patient agrees. - Will also not do any anticoagulation given low clinical suspicion meaning that there is a much greater risk of harm than there is any potential benefit. - Repeat d-dimer was stable. If he has clinical decompensation, could consider a heparin infusion but benefits of this would still be questionable. #4 Elevated troponin #5 CAD - Clinical history is also not consistent with ACS. Patient has denied any chest pain and has been short of breath for 2 weeks. If he did have an event, it likely occurred >2 weeks ago. - Initial troponin is high. Repeat is stable. - He is not excited about any transfers to [place] for further intervention or treatments, and I agree that this is unnecessary. - Will continue to treat his CAD medically with continuation of his home medications. - No role for heparin for this reason either, similar to that documented above. - BNP barely elevated and is actually improved compared to 2 weeks prior; therefore, no role for IV diuresis at this time. #6 Near syncope - [place] to be secondary to hypoxia. No evidence of dehydration. No major inf ectious process. Less likely to be cardiac based on above as well as history of similar symptoms. Not consistent with TIA either. - Will have him on telemetry for 48 hours. - Echo ok 11/04; can be repeated outpatient if recurrent issues. #7 CKD - No LOC at this time. - Will avoid any renal insults. #8 Diabetes - Glucoses QICAC. - Continue levemir. - Low dose SSI with meals. #9 h/o CVA #10 Hemiparesis secondary to prior CVA #11 Carotid stenosis #12 Obesity #13 Depression and anxiety #14 BPH #15 HLD #16 HTN #17 APPLE #18 OA - Continue home medications. Patient is admitted to acute due to diagnoses as above and anticipation he will require hospitalization spanning 2 midnights. Will also do PT/OT evaluations for disposition planning, which will likely not occur until Tuesday. Therefore, ant icipate admission through the weekend. Code status DNR/DNI - discussed on admission. Heparin for VTE prophylaxis as renal function prohibits lovenox. - Mortality Measure Prognosis:: Good
[2021-04-24] MEDS: cefTRIAXone 1 GM Vial IVPUSH SCH (14:21)
[2021-04-24] MEDS: Albuterol/Ipratropium 3.0-0.5 MG/3 ML Neb Soln NEB SCH ×3 (14:59→22:16)
[2021-04-24] MEDS: Heparin Sodium 5,000 Units/ML Vial SUBCUT SCH ×2 (16:48→22:16)
[2021-04-24] MEDS ORDERED: Glucagon,Human Recombinant 1 MG Vial IM PRN (17:19)
[2021-04-24] MEDS ORDERED: 50% Dextrose in Water 50 ML Syringe IVPUSH PRN (17:19)
[2021-04-24] MEDS: methylPREDNISolone Sodium Succinate 40 MG/1 ML SDV IVPUSH SCH (18:12)
[2021-04-24] MEDS ORDERED: Insulin Glarg,Human.Rec.Analog 100 Unit/ML SUBCUT SCH (20:00)
[2021-04-24] MEDS: Oxybutynin 5 MG Tab.ER PO SCH (20:21)
[2021-04-24] MEDS: Melatonin 3 MG Tab PO SCH (20:21)
[2021-04-24] MEDS: Doxycycline 100 MG Cap PO SCH (20:21)
[2021-04-24] MEDS: Tamsulosin 0.4 MG Cap.ER PO SCH (20:22)
[2021-04-24] MEDS: Docusate Sodium 100 MG Cap PO SCH (20:22)
[2021-04-24] MEDS: Sodium Chloride 0.9% 10 ML Syringe FLUSH PRN (20:26)
[2021-04-24] MEDS ORDERED: Insulin Lispro 100 Units/ML 3 ML Vial SUBCUT ONE (20:34)
[2021-04-24] MEDS: Insulin Lispro 100 Units/ML 3 ML Vial SUBCUT SCH (20:49)
[2021-04-25] MEDS: Albuterol/Ipratropium 3.0-0.5 MG/3 ML Neb Soln NEB SCH ×6 (02:36→22:50)
[2021-04-25] MEDS: methylPREDNISolone Sodium Succinate 40 MG/1 ML SDV IVPUSH SCH ×2 (05:09→18:21)
[2021-04-25] MEDS: Heparin Sodium 5,000 Units/ML Vial SUBCUT SCH ×3 (05:11→22:50)
[2021-04-25 08:05] LABS: ANION GAP 15.7 mmol/L (5-15)
[2021-04-25] MEDS: Rosuvastatin 20 MG Tab PO SCH (09:25)
[2021-04-25] MEDS: Fenofibrate,Micronized 134 MG Cap PO SCH (09:26)
--- NOTE | 2021-04-25 09:26 | PN ---
Progress Note for RAÚL CORDERO Date: 04/25/2021 Room #: VM.219 SUBJECTIVE: The patient is feeling much better today. He is breathing better. He rested well. As noted, his blood sugars went up last evening, but that was felt to be due to the steroids that he had been placed on. Objectively, he was noted to have a run of some ventricular tachycardia for 6 seconds that was asymptomatic and then he went back to his usual rhythm. OBJECTIVE: Vital Signs: Temperature is 36.5, pulse 86, blood pressure is 168/85, respiratory rate 18, saturations are 94% on 1 L. General: He is happy, pleasant to visit with. Heart: Regular rate and rhythm. Lungs: Clear to auscultation. Abdomen: Soft. Extremities: Lower extremities, no edema. LABORATORY DATA: His lab today shows that his white blood cell count 5.3, hemoglobin 14.0, platelets are 136. His sodium is 139, potassium 4.7, creatinine 2.6 which is stable, GFR 24, glucose is down to 264. IMPRESSION: 1. Exacerbation of chronic obstructive pulmonary disease. 2. Respiratory failure, improving. 3. Elevated D-dimer. 4. Elevated troponin. 5. Coronary artery disease. 6. Near syncope. 7. Chronic kidney disease stage 4. 8. Type 2 diabetes mellitus. 9. Hemiparesis due to cerebrovascular accident. PLAN: The patient will continue on his Rocephin as well as his doxycycline. He will be stopped on his methylprednisolone after this evening and we will continue telemetry, but right now, we will not make any changes to any antiarrhythmic medications for him right now. GM04/25/2021 09:08:15 MODL: 04/25/2021 09:19:33 /[id number] JOSE L
[2021-04-25] MEDS: Sertraline 50 MG Tab PO SCH (09:27)
[2021-04-25] MEDS: Aspirin 325 MG Tab.EC PO SCH (09:27)
[2021-04-25] MEDS: Docusate Sodium 100 MG Cap PO SCH ×2 (09:27→20:15)
[2021-04-25] MEDS: Doxycycline 100 MG Cap PO SCH ×2 (09:27→20:15)
[2021-04-25] MEDS: Furosemide 20 MG Tab PO SCH (09:28)
[2021-04-25] MEDS: cefTRIAXone 1 GM Vial IVPUSH SCH (09:30)
[2021-04-25] MEDS: Lisinopril 10 MG Tab PO SCH (09:31)
[2021-04-25] MEDS: Isosorbide Mononitrate 30 MG Tab.ER PO SCH (09:32)
[2021-04-25] MEDS: Insulin Lispro 100 Units/ML 3 ML Vial SUBCUT SCH ×3 (09:34→18:20)
[2021-04-25] MEDS: Insulin Glarg,Human.Rec.Analog 100 Unit/ML SUBCUT SCH (09:49)
[2021-04-25] MEDS: Oxybutynin 5 MG Tab.ER PO SCH (20:15)
[2021-04-25] MEDS: Tamsulosin 0.4 MG Cap.ER PO SCH (20:15)
[2021-04-25] MEDS: Melatonin 3 MG Tab PO SCH (22:51)
[2021-04-26] MEDS: Albuterol/Ipratropium 3.0-0.5 MG/3 ML Neb Soln NEB SCH ×6 (02:50→23:56)
[2021-04-26] MEDS: Heparin Sodium 5,000 Units/ML Vial SUBCUT SCH ×3 (05:52→23:56)
[2021-04-26 08:15] LABS: ANION GAP 14.6 mmol/L (5-15)
[2021-04-26] MEDS: Sertraline 50 MG Tab PO SCH (09:29)
[2021-04-26] MEDS: Aspirin 325 MG Tab.EC PO SCH (09:29)
[2021-04-26] MEDS: Rosuvastatin 20 MG Tab PO SCH (09:29)
[2021-04-26] MEDS: predniSONE 20 MG Tab PO SCH (09:29)
[2021-04-26] MEDS: Doxycycline 100 MG Cap PO SCH ×2 (09:30→20:00)
[2021-04-26] MEDS: Furosemide 20 MG Tab PO SCH (09:30)
[2021-04-26] MEDS: Fenofibrate,Micronized 134 MG Cap PO SCH (09:30)
[2021-04-26] MEDS: Lisinopril 10 MG Tab PO SCH (09:30)
[2021-04-26] MEDS: Docusate Sodium 100 MG Cap PO SCH ×2 (09:31→20:01)
[2021-04-26] MEDS: Isosorbide Mononitrate 30 MG Tab.ER PO SCH (09:31)
[2021-04-26] MEDS: Insulin Glarg,Human.Rec.Analog 100 Unit/ML SUBCUT SCH (09:32)
[2021-04-26] MEDS: cefTRIAXone 1 GM Vial IVPUSH SCH (09:32)
[2021-04-26] MEDS: Insulin Lispro 100 Units/ML 3 ML Vial SUBCUT SCH ×3 (09:33→17:34)
--- NOTE | 2021-04-26 10:19 | PN ---
Progress Note for RAÚL CORDERO Date: 04/26/2021 Room #: VM.219 SUBJECTIVE: The patient is feeling better, feeling a little bit stronger. Does still have some weakness. Not having a productive cough. He rested well last night. OBJECTIVE: Vital Signs: His temperature is 36.6, pulse is 83, blood pressure is 151/78, saturations are 94% on 1 L. Telemetry has been showing sinus rhythm. Heart: Regular rate and rhythm. Lungs: Diminished breath sounds on bases. Abdomen: Obese. Extremities: Strength is slightly weak. LABORATORY DATA: White blood cell count 6.3, hemoglobin 13.4, platelets are 139, 82 segs, 9 lymphocytes. Sodium 140, potassium 4.6, creatinine 2.8, stable. GFR 22, glucose is 296. IMPRESSION: 1. Exacerbation of chronic obstructive pulmonary disease. 2. Respiratory failure. 3. Elevated D-dimer. 4. Elevated troponin. 5. Coronary artery disease. 6. Chronic kidney disease, stage 4. 7. Type 2 diabetes mellitus. 8. Hemiparesis. PLAN: We will continue his Rocephin and doxycycline. We will repeat a chest x- ray tomorrow. We will continue telemetry as he has had that 1 beat of V-tach yesterday and Dr. Tan to assume care tomorrow. PT and OT will see the patient tomorrow. GM04/26/2021 09:27:14 MODL: 04/26/2021 10:11:26 /[id number]
[2021-04-26] MEDS: Tamsulosin 0.4 MG Cap.ER PO SCH (20:00)
[2021-04-26] MEDS: Oxybutynin 5 MG Tab.ER PO SCH (23:57)
[2021-04-26] MEDS: Melatonin 3 MG Tab PO SCH (23:57)
[2021-04-27] MEDS: Albuterol/Ipratropium 3.0-0.5 MG/3 ML Neb Soln NEB SCH ×6 (02:59→22:42)
[2021-04-27] MEDS: Heparin Sodium 5,000 Units/ML Vial SUBCUT SCH ×3 (06:14→21:16)
[2021-04-27] MEDS: Isosorbide Mononitrate 30 MG Tab.ER PO SCH (09:02)
[2021-04-27] MEDS: Rosuvastatin 20 MG Tab PO SCH (09:04)
[2021-04-27] MEDS: predniSONE 20 MG Tab PO SCH (09:05)
[2021-04-27] MEDS: Sertraline 50 MG Tab PO SCH (09:05)
[2021-04-27] MEDS: Furosemide 20 MG Tab PO SCH (09:05)
[2021-04-27] MEDS: Docusate Sodium 100 MG Cap PO SCH ×2 (09:06→20:46)
[2021-04-27] MEDS: Lisinopril 10 MG Tab PO SCH (09:06)
[2021-04-27] MEDS: Aspirin 325 MG Tab.EC PO SCH (09:07)
[2021-04-27] MEDS: Fenofibrate,Micronized 134 MG Cap PO SCH (09:07)
[2021-04-27] MEDS: Doxycycline 100 MG Cap PO SCH ×2 (09:07→20:46)
[2021-04-27] MEDS: Insulin Glarg,Human.Rec.Analog 100 Unit/ML SUBCUT SCH (09:11)
[2021-04-27] MEDS: Insulin Lispro 100 Units/ML 3 ML Vial SUBCUT SCH ×3 (09:14→19:01)
--- NOTE | 2021-04-27 10:28 | CR ---
[id number] RAD/RAD Chest PA And Lateral EXAM: RAD Chest PA And Lateral INDICATION: FOLLOW-UP COPD EXACERBATION. COMPARISON: April 24, 2021. DISCUSSION/IMPRESSION: Median sternotomy. Heart is normal in size. Mild amount of bibasal pleural/parenchymal scarring. Bilateral symmetric lung hyperinflation. Findings suggest underlying changes of COPD. Angelito David MD 04/27/21 1026 Thank you for allowing us to participate in the care of your patient.
--- NOTE | 2021-04-27 13:55 | PCM.PN ---
- General Info Date of Service: 04/27/21 Subjective Update: 85 yo male hospital day #4 admitted with acute hypoxic respiratory failure secondary to a COPD exacerbation. He states he is not doing well today. He was doing much better yesterday. He was weaned off oxygen but then felt he was coughing and more short of breath. The oxygen was resumed around 3 am and he does feel some better after that. But he is very tired today. He does not feel he should be discharged home. He still feels his chest is congested. He is still coughing and short of breath. He feels it makes a big difference when he has the oxygen on versus when he doesn't. He generally uses a cane at home but PT recommends a walker as of this morning. They did not feel he needed swing bed prior to returning home. - Review of Systems General: Reports: No Symptoms HEENT: Reports: No Symptoms Pulmonary: Reports: Shortness of Breath, Cough Cardiovascular: Reports: No Symptoms Gastrointestinal: Reports: No Symptoms Genitourinary: Reports: No Symptoms Musculoskeletal: Reports: No Symptoms Skin: Reports: No Symptoms Neurological: Reports: No Symptoms Psychiatric: Reports: No Symptoms - Patient Data Vitals - Most Recent: Last Vital Signs Temp 36.5 C 04/27/21 10:00 Pulse 93 04/27/21 10:00 Resp 20 04/27/21 10:00 BP 154/64 H 04/27/21 10:00 Pulse Ox 93 L 04/27/21 10:00 Weight - Most Recent: 107.048 kg I&O - Last 24 Hours: Intake & Output 04/26/21 04/27/21 04/27/21 22:59 06:59 14:59 Intake Total 240 400 240 Balance 240 400 240 Lab Results Last 24 Hours: Laboratory Results - last 24 hr 04/26/21 04/26/21 04/27/21 Range/Units 17:33 23:00 06:10 POC Glucose 281 H 426 H* 107 H (70-99) mg/dL 04/27/21 Range/Units 11:20 POC Glucose 225 H (70-99) mg/dL Med Orders - Current: Current Medications Albuterol/Ipratropium (Albuterol/Ipratropium 3.0-0.5 Mg/3 Ml Neb Soln) 3 ml NEB Q4HRRT [facility] Last Admin: 04/27/21 11:29 Dose: 3 ml Documented by: Aspirin (Aspirin 325 Mg Tab.Ec) 325 mg PO DAILY [facility] Last Admin: 04/27/21 09:07 Dose: 325 mg Documented by: Dextrose/Water (50% Dextrose In Water 50 Ml Syringe) 50 ml IVPUSH ASDIRECTED PRN PRN Reason: Hypoglycemia Docusate Sodium (Docusate Sodium 100 Mg Cap) 100 mg PO BID [facility] Last Admin: 04/27/21 09:06 Dose: 100 mg Documented by: Doxycycline Hyclate (Doxycycline 100 Mg Cap) 100 mg PO BID [facility] Last Admin: 04/27/21 09:07 Dose: 100 mg Documented by: Fenofibrate (Fenofibrate,Micronized 134 Mg Cap) 134 mg PO DAILY [facility] Last Admin: 04/27/21 09:07 Dose: 134 mg Documented by: Furosemide (Furosemide 20 Mg Tab) 20 mg PO DAILY [facility] Last Admin: 04/27/21 09:05 Dose: 20 mg Documented by: Glucagon (Glucagon,Human Recombinant 1 Mg Vial) 1 mg IM ASDIRECTED PRN PRN Reason: Hypoglycemia Heparin Sodium (Porcine) (Heparin Sodium 5,000 Units/Ml Vial) 5,000 units SUBCUT Q8H [facility] Last Admin: 04/27/21 06:14 Dose: 5,000 units Documented by: Insulin Glargine (Insulin Glarg,Human.Rec.Analog 100 Unit/Ml) 32 unit SUBCUT DAILY@0800 [facility] Last Admin: 04/27/21 09:11 Dose: 32 unit Documented by: Insulin Human Lispro (Insulin Lispro 100 Units/Ml 3 Ml Vial) 0 unit SUBCUT TIDMEALS [facility]; Protocol Last Admin: 04/27/21 12:20 Dose: 2 unit Documented by: Isosorbide Mononitrate (Isosorbide Mononitrate 30 Mg Tab.Er) 15 mg PO DAILY [facility] Last Admin: 04/27/21 09:02 Dose: 15 mg Documented by: Lisinopril (Lisinopril 10 Mg Tab) 10 mg PO DAILY [facility] Last Admin: 04/27/21 09:06 Dose: 10 mg Documented by: Melatonin (Melatonin 3 Mg Tab) 6 mg PO BEDTIME [facility] Last Admin: 04/26/21 23:57 Dose: 6 mg Documented by: Oxybutynin Chloride (Oxybutynin 5 Mg Tab.Er) 5 mg PO BEDTIME [facility] Last Admin: 04/26/21 23:57 Dose: 5 mg Documented by: Prednisone (Prednisone 20 Mg Tab) 40 mg PO WITHBREAKFAST [facility] Last Admin: 04/27/21 09:05 Dose: 40 mg Documented by: Rosuvastatin Calcium (Rosuvastatin 20 Mg Tab) 40 mg PO DAILY [facility] Last Admin: 04/27/21 09:04 Dose: 40 mg Documented by: Senna/Docusate Sodium (Docusate Sodium/Sennosides 50-8.6 Mg Tab) 2 tab PO BEDTIME [facility] Last Admin: 04/26/21 20:00 Dose: 2 tab Documented by: Sertraline HCl (Sertraline 50 Mg Tab) 50 mg PO DAILY [facility] Last Admin: 04/27/21 09:05 Dose: 50 mg Documented by: Sodium Chloride (Sodium Chloride 0.9% 10 Ml Syringe) 10 ml FLUSH ASDIRECTED PRN PRN Reason: Keep Vein Open Last Admin: 04/24/21 20:26 Dose: 10 ml Documented by: Tamsulosin HCl (Tamsulosin 0.4 Mg Cap.Er) 0.4 mg PO BEDTIME [facility] Last Admin: 04/26/21 20:00 Dose: 0.4 mg Documented by: Discontinued Medications Albuterol/Ipratropium (Albuterol/Ipratropium 3.0-0.5 Mg/3 Ml Neb Soln) 3 ml NEB ONETIME ONE Stop: 04/24/21 08:55 Last Admin: 04/24/21 09:11 Dose: 3 ml Documented by: Ceftriaxone Sodium (Ceftriaxone 1 Gm Vial) 1 gm IVPUSH DAILY [facility] Stop: 04/26/21 14:00 Last Admin: 04/26/21 09:32 Dose: 1 gm Documented by: Insulin Glargine (Insulin Glarg,Human.Rec.Analog 100 Unit/Ml) 32 unit SUBCUT BEDTIME [facility] Last Admin: 04/24/21 20:32 Dose: Not Given Documented by: Insulin Human Lispro (Insulin Lispro 100 Units/Ml 3 Ml Vial) 10 unit SUBCUT ONE TIME ONE Stop: 04/24/21 20:35 Last Admin: 04/24/21 20:48 Dose: 10 units Documented by: Methylprednisolone Sodium Succinate (Methylprednisolone Sodium Succinate 125 Mg/2 Ml Sdv) 125 mg IVPUSH ONETIME ONE Stop: 04/24/21 08:56 Last Admin: 04/24/21 09:18 Dose: 125 mg Documented by: Methylprednisolone Sodium Succinate (Methylprednisolone Sodium Succinate 40 Mg/1 Ml Sdv) 40 mg IVPUSH Q12H [facility] Stop: 04/25/21 18:01 Last Admin: 04/25/21 18:21 Dose: 40 mg Documented by: - Exam General: Alert, Oriented, Cooperative, No Acute Distress HEENT: Pupils Equal, Pupils Reactive, Mucous Membr. Moist/[place] Neck: Supple, Trachea Midline, No Thyromegaly. No: Lymphadenopathy Lungs: Clear to Auscultation, Normal Respiratory Effort Cardiovascular: Regular Rate, Regular Rhythm, No Murmurs GI/Abdominal Exam: Normal Bowel Sounds, Soft, Non-Tender, No Organomegaly, No Distention, No Mass Extremities: Normal Inspection, Normal Range of Motion, Non-Tender, No Pedal Edema Peripheral Pulses: 2+: Radial (L), Radial (R) Skin: Warm, Dry, Intact Neurological: No New Focal Deficit - Patient Data Lab Results Last 24 hrs: Laboratory Results - last 24 hr 04/26/21 04/26/21 04/27/21 Range/Units 17:33 23:00 06:10 POC Glucose 281 H 426 H* 107 H (70-99) mg/dL 04/27/21 Range/Units 11:20 POC Glucose 225 H (70-99) mg/dL Result Diagrams: 04/26/21 07:39 04/26/21 07:39 Sepsis Event Note - Evaluation Sepsis Screening Result: No Definite Risk - Focused Exam Vital Signs: Vital Signs Temp Pulse Resp BP BP BP Pulse Ox 04/27/21 10:00 36.5 C 93 20 154/64 H 93 L 04/27/21 09:06 134/63 04/27/21 09:02 134/63 04/27/21 06:00 36.7 C 90 18 165/74 H 93 L 04/27/21 02:00 36.3 C 94 16 156/86 H 95 - Problem List & Annotations (1) COPD exacerbation SNOMED Code(s): 803937971 Code(s): J44.1 - CHRONIC OBSTRUCTIVE PULMONARY DISEASE W (ACUTE) EXACERBATION Status: Acute Current Visit: Yes (2) Respiratory failure SNOMED Code(s): 997064735 Code(s): J96.90 - RESPIRATORY FAILURE, UNSP, UNSP W HYPOXIA OR HYPERCAPNIA Status: Acute Current Visit: Yes Qualifiers: Chronicity: acute Respiratory failure complication: hypoxia and hypercapnia Qualified Code(s): J96.01 - Acute respiratory failure with hypoxia; J96.02 - Acute respiratory failure with hypercapnia (3) Elevated d-dimer SNOMED Code(s): 799249464 Code(s): R79.89 - OTHER SPECIFIED ABNORMAL FINDINGS OF BLOOD CHEMISTRY Status: Acute Current Visit: Yes (4) Elevated troponin SNOMED Code(s): 150282375, 640627837, 230903732 Code(s): R77.8 - OTHER SPECIFIED ABNORMALITIES OF PLASMA PROTEINS Status: Acute Current Visit: Yes (5) Coronary artery disease SNOMED Code(s): 41907294 Code(s): I25.10 - ATHSCL HEART DISEASE OF [place] CORONARY ARTERY W/O ANG PCTRS Status: Chronic Current Visit: No Qualifiers: Coronary Disease-Associated Artery/Lesion type: [place] artery [place] vs. transplanted heart: [place] heart Associated angina: without angina Qualified Code(s): I25.10 - Atherosclerotic heart disease of [place] coronary artery without angina pectoris (6) Near syncope SNOMED Code(s): 456024337 Code(s): R55 - SYNCOPE AND COLLAPSE Status: Acute Current Visit: Yes (7) CKD (chronic kidney disease) SNOMED Code(s): 485359713 Code(s): N18.9 - CHRONIC KIDNEY DISEASE, UNSPECIFIED Status: Chronic Current Visit: No Qualifiers: Chronic kidney disease stage: stage 3 (moderate) (8) Diabetes SNOMED Code(s): 57917565 Code(s): E11.9 - TYPE 2 DIABETES MELLITUS WITHOUT COMPLICATIONS Status: Chronic Current Visit: No Qualifiers: Diabetes mellitus type: type 2 Diabetes mellitus assisted insulin use: without assisted use Diabetes mellitus complication status: with kidney complications Diabetes mellitus complication detail: with chronic kidney disease (9) H/O: CVA (cerebrovascular accident) SNOMED Code(s): 656141666 Code(s): Z86.73 - PRSNL HX OF TIA (TIA), AND CEREB INFRC W/O RESID DEFICITS Status: Acute Current Visit: Yes (10) Hemiparesis due to old cerebrovascular accident SNOMED Code(s): 257199853 Code(s): I69.359 - HEMIPLGA FOLLOWING CEREBRAL INFARCTION AFFECTING UNSP SIDE Status: Acute Current Visit: Yes (11) Carotid stenosis Status: Acute Current Visit: Yes (12) Obesity SNOMED Code(s): 963929471, 608879491 Code(s): E66.9 - OBESITY, UNSPECIFIED Status: Acute Current Visit: Yes (13) Depression with anxiety SNOMED Code(s): 287936226 Code(s): F41.8 - OTHER SPECIFIED ANXIETY DISORDERS Status: Acute Current Visit: Yes (14) BPH (benign prostatic hyperplasia) SNOMED Code(s): 802492440 Code(s): N40.0 - BENIGN PROSTATIC HYPERPLASIA WITHOUT LOWER URINRY TRACT SYMP Status: Chronic Current Visit: No Qualifiers: Lower urinary tract symptom presence: unspecified whether lower urinary tract symptoms present Qualified Code(s): N40.0 - Benign prostatic hyperplasia without lower urinary tract symptoms (15) Hyperlipidemia SNOMED Code(s): 27273837 Code(s): E78.5 - HYPERLIPIDEMIA, UNSPECIFIED Status: Chronic Current Visit: No Qualifiers: Hyperlipidemia type: unspecified Qualified Code(s): E78.5 - Hyperlipidemia, unspecified (16) Hypertension SNOMED Code(s): 83124853 Code(s): I10 - ESSENTIAL (PRIMARY) HYPERTENSION Status: Chronic Current Visit: No Qualifiers: Hypertension type: essential hypertension (17) APPLE (obstructive sleep apnea) SNOMED Code(s): 84750470 Code(s): G47.33 - OBSTRUCTIVE SLEEP APNEA (ADULT) (PEDIATRIC) Status: Chronic Current Visit: No (18) Osteoarthritis SNOMED Code(s): 197341969 Code(s): M19.90 - UNSPECIFIED OSTEOARTHRITIS, UNSPECIFIED SITE Status: Chronic Current Visit: No Qualifiers: Osteoarthritis location: multiple joints Osteoarthritis type: primary Qualified Code(s): M89.49 - Other hypertrophic osteoarthropathy, multiple sites - Problem List Review Problem List Initiated/Reviewed/Updated: Yes - Assessment Assessment:: 85 yo male hospital day #4 admitted with hypoxic respiratory failure secondary to COPD exacerbation. Repeat CXR negative for acute findings today. No lab done this am as they have been fine all weekend. Doing worse today than yesterday, likely related to lack of sleep last night. - Plan Plan:: #1 COPD exacerbation #2 Acute hypoxic respiratory failure - Will continue steroids and antibiotics for a total of 5 days. Last day will be tomorrow. - Continue DuoNebs scheduled q4 hours. - Home oxygen evaluation tomorrow. #3 Elevated d-dimer - PE highly unlikely based on clinical course/lack of decompensation. #4 Elevated troponin #5 CAD - Home medications continued. #6 Near syncope - [place] to be secondary to hypoxia. - Did have 1 run of v-tach on telemetry but did not have symptoms with this. Resolved after 5-6 beats; therefore, nothing further needed at this time. - Echo ok 11/04; can be repeated outpatient if recurrent issues. #7 CKD - Creatinine stable during his hospitalization. - No LOC at this time. - Will avoid any renal insults. #8 Diabetes - Glucoses QICAC. - Has had some high ones, likely related to the steroids. Improved with lower dosing on the steroids. - Continue levemir. - Low dose SSI with meals. #9 h/o CVA #10 Hemiparesis secondary to prior CVA #11 Carotid stenosis #12 Obesity #13 Depression and anxiety #14 BPH #15 HLD #16 HTN #17 APPLE #18 OA - Continue home medications. Patient will remain on acute today due to not feeling as well today - will plan for d/c home tomorrow. PT re-eval to see if they still recommend the walker. He is advised to get one of these just in case. Discussed home health and he will consider this. Home O2 evaluation tomorrow as well. Code status DNR/DNI - discussed on admission. Heparin for VTE prophylaxis as renal function prohibits lovenox.
[2021-04-27] MEDS: Oxybutynin 5 MG Tab.ER PO SCH (20:46)
[2021-04-27] MEDS: Melatonin 3 MG Tab PO SCH (20:46)
[2021-04-27] MEDS: Tamsulosin 0.4 MG Cap.ER PO SCH (20:46)
[2021-04-27] MEDS: Sodium Chloride 0.9% 10 ML Syringe FLUSH PRN (20:48)
[2021-04-27] MEDS ORDERED: 50% Dextrose in Water 50 ML Syringe IVPUSH PRN (20:56)
[2021-04-27] MEDS ORDERED: Glucagon,Human Recombinant 1 MG Vial IM PRN (20:56)
[2021-04-27] MEDS ORDERED: Insulin Glarg,Human.Rec.Analog 100 Unit/ML SUBCUT ONE (21:12)
[2021-04-28] MEDS: Albuterol/Ipratropium 3.0-0.5 MG/3 ML Neb Soln NEB SCH ×3 (03:00→11:36)
[2021-04-28] MEDS: Heparin Sodium 5,000 Units/ML Vial SUBCUT SCH (06:08)
[2021-04-28] MEDS: Doxycycline 100 MG Cap PO SCH (08:01)
[2021-04-28] MEDS: Sertraline 50 MG Tab PO SCH (08:01)
[2021-04-28] MEDS: Rosuvastatin 20 MG Tab PO SCH (08:02)
[2021-04-28] MEDS: Docusate Sodium 100 MG Cap PO SCH (08:03)
[2021-04-28] MEDS: Aspirin 325 MG Tab.EC PO SCH (08:03)
[2021-04-28] MEDS: Lisinopril 10 MG Tab PO SCH (08:04)
[2021-04-28] MEDS: predniSONE 20 MG Tab PO SCH (08:04)
[2021-04-28] MEDS: Furosemide 20 MG Tab PO SCH (08:04)
[2021-04-28] MEDS: Isosorbide Mononitrate 30 MG Tab.ER PO SCH (08:05)
[2021-04-28] MEDS: Fenofibrate,Micronized 134 MG Cap PO SCH (08:05)
[2021-04-28] MEDS: Insulin Glarg,Human.Rec.Analog 100 Unit/ML SUBCUT SCH (08:06)
[2021-04-28] MEDS: Insulin Lispro 100 Units/ML 3 ML Vial SUBCUT SCH ×2 (08:08→11:49)
--- NOTE | 2021-04-28 09:52 | PCM.DCSUM1 ---
Discharge Summary - Hospital Course Brief History: Mr. Figueroa is an 85 yo male who was admitted for hypoxic respiratory failure secondary to COPD exacerbation after presenting to the ER for low oxygen saturations at home associated with shortness of breath. - Discharge Data Discharge Date: 04/28/21 Discharge Disposition: Home, Self-Care 01 Condition: Good - Referral to Home Health Primary Care Physician: Cherelle Tan MD - Discharge Diagnosis/Problem(s) (1) COPD exacerbation SNOMED Code(s): 577466803 ICD Code: J44.1 - CHRONIC OBSTRUCTIVE PULMONARY DISEASE W (ACUTE) EXACERBATION Status: Acute Current Visit: Yes (2) Respiratory failure SNOMED Code(s): 349567212 ICD Code: J96.90 - RESPIRATORY FAILURE, UNSP, UNSP W HYPOXIA OR HYPERCAPNIA Status: Acute Current Visit: Yes Qualifiers: Chronicity: acute Respiratory failure complication: hypoxia and hypercapnia Qualified Code(s): J96.01 - Acute respiratory failure with hypoxia; J96.02 - Acute respiratory failure with hypercapnia (3) Elevated d-dimer SNOMED Code(s): 812380651 ICD Code: R79.89 - OTHER SPECIFIED ABNORMAL FINDINGS OF BLOOD CHEMISTRY Status: Acute Current Visit: Yes (4) Elevated troponin SNOMED Code(s): 275458977, 546060096, 570187805 ICD Code: R77.8 - OTHER SPECIFIED ABNORMALITIES OF PLASMA PROTEINS Status: Acute Current Visit: Yes (5) Coronary artery disease SNOMED Code(s): 85179636 ICD Code: I25.10 - ATHSCL HEART DISEASE OF [place] CORONARY ARTERY W/O ANG PCTRS Status: Chronic Current Visit: No Qualifiers: Coronary Disease-Associated Artery/Lesion type: [place] artery [place] vs. transplanted heart: [place] heart Associated angina: without angina Qualified Code(s): I25.10 - Atherosclerotic heart disease of [place] coronary artery without angina pectoris (6) Near syncope SNOMED Code(s): 990480221 ICD Code: R55 - SYNCOPE AND COLLAPSE Status: Acute Current Visit: Yes (7) CKD (chronic kidney disease) SNOMED Code(s): 082433608 ICD Code: N18.9 - CHRONIC KIDNEY DISEASE, UNSPECIFIED Status: Chronic Current Visit: No Qualifiers: Chronic kidney disease stage: stage 3 (moderate) (8) Diabetes SNOMED Code(s): 92035041 ICD Code: E11.9 - TYPE 2 DIABETES MELLITUS WITHOUT COMPLICATIONS Status: Chronic Current Visit: No Qualifiers: Diabetes mellitus type: type 2 Diabetes mellitus alf insulin use: without svp research and strategic analysis use Diabetes mellitus complication status: with kidney complications Diabetes mellitus complication detail: with chronic kidney disease (9) H/O: CVA (cerebrovascular accident) SNOMED Code(s): 855214018 ICD Code: Z86.73 - PRSNL HX OF TIA (TIA), AND CEREB INFRC W/O RESID DEFICITS Status: Acute Current Visit: Yes (10) Hemiparesis due to old cerebrovascular accident SNOMED Code(s): 571869971 ICD Code: I69.359 - HEMIPLGA FOLLOWING CEREBRAL INFARCTION AFFECTING UNSP SIDE Status: Acute Current Visit: Yes (11) Carotid stenosis Status: Acute Current Visit: Yes (12) Obesity SNOMED Code(s): 123187583, 485175303 ICD Code: E66.9 - OBESITY, UNSPECIFIED Status: Acute Current Visit: Yes (13) Depression with anxiety SNOMED Code(s): 032794820 ICD Code: F41.8 - OTHER SPECIFIED ANXIETY DISORDERS Status: Acute Current Visit: Yes (14) BPH (benign prostatic hyperplasia) SNOMED Code(s): 431781767 ICD Code: N40.0 - BENIGN PROSTATIC HYPERPLASIA WITHOUT LOWER URINRY TRACT SYMP Status: Chronic Current Visit: No Qualifiers: Lower urinary tract symptom presence: unspecified whether lower urinary tract symptoms present Qualified Code(s): N40.0 - Benign prostatic hyperplasia without lower urinary tract symptoms (15) Hyperlipidemia SNOMED Code(s): 25483795 ICD Code: E78.5 - HYPERLIPIDEMIA, UNSPECIFIED Status: Chronic Current Visit: No Qualifiers: Hyperlipidemia type: unspecified Qualified Code(s): E78.5 - Hyperlipidemia, unspecified (16) Hypertension SNOMED Code(s): 81881198 ICD Code: I10 - ESSENTIAL (PRIMARY) HYPERTENSION Status: Chronic Current Visit: No Qualifiers: Hypertension type: essential hypertension (17) APPLE (obstructive sleep apnea) SNOMED Code(s): 78630599 ICD Code: G47.33 - OBSTRUCTIVE SLEEP APNEA (ADULT) (PEDIATRIC) Status: Chronic Current Visit: No (18) Osteoarthritis SNOMED Code(s): 345311639 ICD Code: M19.90 - UNSPECIFIED OSTEOARTHRITIS, UNSPECIFIED SITE Status: Chronic Current Visit: No Qualifiers: Osteoarthritis location: multiple joints Osteoarthritis type: primary Qualified Code(s): M89.49 - Other hypertrophic osteoarthropathy, multiple sites - Patient Summary/Data Operative Procedure(s) Performed: none Complications: none Consults: Consultations 04/24/21 14:02 OT Evaluation and Treatment [CONS] Routine PT Evaluation and Treatment [CONS] Routine Labs Pending at D/C: none Recommended Follow-up Testing/Procedures: none Planned Operative Procedure(s) after DC: none Hospital Course: He was admitted and given antibiotics and steroids. His symptoms progressively improved and his oxygen requirements decreased. He did not tolerate full d/c of the oxygen, especially overnight. RT did a home O2 evaluation today and this prescription will be sent to [facility] per patient choice. He completed his full courses of steroids and antibiotics while hospitalized. He was evaluated by PT and OT and they did not feel he needed swing bed prior to return home. PT did recommend use of a walker instead of his cane. A prescription was sent to [facility] for this as well. Home health was offered and he declined for now. He will have close outpatient follow-up with a visit in 2 days since he is coming back for nephrology anyway. Can reassess home health at that time. His glucoses have been high at times, felt to be secondary to the steroids. Since he will not be discharged home on steroids, this should self correct. His svp research and strategic analysis diabetes medication dosing will not be adjusted. His hospitalization was otherwise uncomplicated. - Patient Instructions Diet: Diabetic Diet Activity: As Tolerated (with walker) Driving: Do Not Drive Showering/Bathing: May Shower Notify Provider of: Fever, Increased Pain, Swelling and Redness, Drainage, Nausea and/or Vomiting - Discharge Plan *PRESCRIPTION DRUG MONITORING PROGRAM REVIEWED*: Not Applicable *COPY OF PRESCRIPTION DRUG MONITORING REPORT IN PATIENT JUAN: Not Applicable Home Medications: Home Meds Furosemide [Lasix] 20 mg PO DAILY 02/15/17 [History] Isosorbide Mononitrate [Imdur] 15 mg PO DAILY 02/15/17 [History] Tamsulosin HCl [Flomax] 0.4 mg PO BEDTIME 02/15/17 [History] Fenofibrate 160 mg PO DAILY 10/22/19 [History] Docusate Sodium 100 mg PO BID 11/08/19 [History] Melatonin 6 mg PO BEDTIME 11/08/19 [History] Sennosides/Docusate Sodium [Senna-Docusate Sodium Tablet] 2 tab PO BEDTIME 11/08/19 [History] Aspirin [Aspirin EC] 325 mg PO DAILY 04/24/21 [History] Cholecalciferol (Vitamin D3) [Vitamin D3] 1,000 unit PO DAILY 04/24/21 [History] Cyclobenzaprine [Flexeril] 5 mg PO BEDTIME PRN 04/24/21 [History] Insulin Detemir [Levemir] 32 unit SUBCUT BEDTIME 04/24/21 [History] Oxybutynin Chloride [Oxybutynin Chloride ER] 5 mg PO BEDTIME 04/24/21 [History] Rosuvastatin Calcium 40 mg PO DAILY 04/24/21 [History] Sertraline [Zoloft] 50 mg PO DAILY 04/24/21 [History] lisinopriL [Lisinopril] 10 mg PO DAILY 04/24/21 [History] Referrals: Cherelle Tan MD [Primary Care Provider] - 04/30/21 9:30 am (You have a follow up appt. with Dr. Tiarra Tan on April 30, 2021 at 9:30---[facility]. Please wear a mask at your appt. ) - Discharge Summary/Plan Comment DC Time >30 min.: No Total # of Minutes for Discharge Time: 20 - General Info Subjective Update: Patient is feeling better this morning. Slept better last night as he had his oxygen on all night. Cough and breathing are better. Feels ready to go home today. ROS otherwise negative. - Review of Systems General: Reports: No Symptoms HEENT: Reports: No Symptoms Pulmonary: Reports: Shortness of Breath, Cough Cardiovascular: Reports: No Symptoms Gastrointestinal: Reports: No Symptoms Genitourinary: Reports: No Symptoms Musculoskeletal: Reports: No Symptoms Skin: Reports: No Symptoms Neurological: Reports: No Symptoms Psychiatric: Reports: No Symptoms - Patient Data Vitals - Most Recent: Last Vital Signs Temp 36.8 C 04/28/21 06:15 Pulse 90 04/28/21 06:15 Resp 20 04/28/21 06:15 BP 145/65 H 04/28/21 08:05 Pulse Ox 91 L 04/28/21 07:22 Weight - Most Recent: 107.048 kg I&O - Last 24 hours: Intake & Output 04/27/21 04/28/21 04/28/21 22:59 06:59 14:59 Intake Total 200 350 240 Balance 200 350 240 Lab Results - Last 24 hrs: Laboratory Results - last 24 hr 04/27/21 04/27/21 04/27/21 Range/Units 11:20 17:36 20:50 POC Glucose 225 H 424 H* 467 H* (70-99) mg/dL 04/28/21 Range/Units 06:11 POC Glucose 164 H (70-99) mg/dL Med Orders - Current: Current Medications Albuterol/Ipratropium (Albuterol/Ipratropium 3.0-0.5 Mg/3 Ml Neb Soln) 3 ml NEB Q4HRRT [facility] Last Admin: 04/28/21 07:20 Dose: 3 ml Documented by: Aspirin (Aspirin 325 Mg Tab.Ec) 325 mg PO DAILY [facility] Last Admin: 04/28/21 08:03 Dose: 325 mg Documented by: Dextrose/Water (50% Dextrose In Water 50 Ml Syringe) 50 ml IVPUSH ASDIRECTED PRN PRN Reason: Hypoglycemia Dextrose/Water (50% Dextrose In Water 50 Ml Syringe) 50 ml IVPUSH ASDIRECTED PRN PRN Reason: Hypoglycemia Docusate Sodium (Docusate Sodium 100 Mg Cap) 100 mg PO BID [facility] Last Admin: 04/28/21 08:03 Dose: 100 mg Documented by: Doxycycline Hyclate (Doxycycline 100 Mg Cap) 100 mg PO BID [facility] Last Admin: 04/28/21 08:01 Dose: 100 mg Documented by: Fenofibrate (Fenofibrate,Micronized 134 Mg Cap) 134 mg PO DAILY [facility] Last Admin: 04/28/21 08:05 Dose: 134 mg Documented by: Furosemide (Furosemide 20 Mg Tab) 20 mg PO DAILY [facility] Last Admin: 04/28/21 08:04 Dose: 20 mg Documented by: Glucagon (Glucagon,Human Recombinant 1 Mg Vial) 1 mg IM ASDIRECTED PRN PRN Reason: Hypoglycemia Heparin Sodium (Porcine) (Heparin Sodium 5,000 Units/Ml Vial) 5,000 units SUBCUT Q8H [facility] Last Admin: 04/28/21 06:08 Dose: 5,000 units Documented by: Insulin Glargine (Insulin Glarg,Human.Rec.Analog 100 Unit/Ml) 32 unit SUBCUT DAILY@0800 [facility] Last Admin: 04/28/21 08:06 Dose: 32 unit Documented by: Insulin Human Lispro (Insulin Lispro 100 Units/Ml 3 Ml Vial) 0 unit SUBCUT TIDMEALS [facility]; Protocol Last Admin: 04/28/21 08:08 Dose: 1 unit Documented by: Isosorbide Mononitrate (Isosorbide Mononitrate 30 Mg Tab.Er) 15 mg PO DAILY [facility] Last Admin: 04/28/21 08:05 Dose: 15 mg Documented by: Lisinopril (Lisinopril 10 Mg Tab) 10 mg PO DAILY [facility] Last Admin: 04/28/21 08:04 Dose: 10 mg Documented by: Melatonin (Melatonin 3 Mg Tab) 6 mg PO BEDTIME [facility] Last Admin: 04/27/21 20:46 Dose: 6 mg Documented by: Oxybutynin Chloride (Oxybutynin 5 Mg Tab.Er) 5 mg PO BEDTIME [facility] Last Admin: 04/27/21 20:46 Dose: 5 mg Documented by: Prednisone (Prednisone 20 Mg Tab) 40 mg PO WITHBREAKFAST [facility] Last Admin: 04/28/21 08:04 Dose: 40 mg Documented by: Rosuvastatin Calcium (Rosuvastatin 20 Mg Tab) 40 mg PO DAILY [facility] Last Admin: 04/28/21 08:02 Dose: 40 mg Documented by: Senna/Docusate Sodium (Docusate Sodium/Sennosides 50-8.6 Mg Tab) 2 tab PO BEDTIME [facility] Last Admin: 04/27/21 20:46 Dose: 2 tab Documented by: Sertraline HCl (Sertraline 50 Mg Tab) 50 mg PO DAILY [facility] Last Admin: 04/28/21 08:01 Dose: 50 mg Documented by: Sodium Chloride (Sodium Chloride 0.9% 10 Ml Syringe) 10 ml FLUSH ASDIRECTED PRN PRN Reason: Keep Vein Open Last Admin: 04/27/21 20:48 Dose: 10 ml Documented by: Tamsulosin HCl (Tamsulosin 0.4 Mg Cap.Er) 0.4 mg PO BEDTIME [facility] Last Admin: 04/27/21 20:46 Dose: 0.4 mg Documented by: Discontinued Medications Albuterol/Ipratropium (Albuterol/Ipratropium 3.0-0.5 Mg/3 Ml Neb Soln) 3 ml NEB ONETIME ONE Stop: 04/24/21 08:55 Last Admin: 04/24/21 09:11 Dose: 3 ml Documented by: Ceftriaxone Sodium (Ceftriaxone 1 Gm Vial) 1 gm IVPUSH DAILY [facility] Stop: 04/26/21 14:00 Last Admin: 04/26/21 09:32 Dose: 1 gm Documented by: Glucagon (Glucagon,Human Recombinant 1 Mg Vial) 1 mg IM ASDIRECTED PRN PRN Reason: Hypoglycemia Insulin Glargine (Insulin Glarg,Human.Rec.Analog 100 Unit/Ml) 32 unit SUBCUT BEDTIME [facility] Last Admin: 04/24/21 20:32 Dose: Not Given Documented by: Insulin Glargine (Insulin Glarg,Human.Rec.Analog 100 Unit/Ml) 12 unit SUBCUT ONETIME ONE Stop: 04/27/21 21:13 Last Admin: 04/27/21 21:15 Dose: 12 units Documented by: Insulin Human Lispro (Insulin Lispro 100 Units/Ml 3 Ml Vial) 10 unit SUBCUT ONETIME ONE Stop: 04/24/21 20:35 Last Admin: 04/24/21 20:48 Dose: 10 units Documented by: Methylprednisolone Sodium Succinate (Methylprednisolone Sodium Succinate 125 Mg/2 Ml Sdv) 125 mg IVPUSH ONETIME ONE Stop: 04/24/21 08:56 Last Admin: 04/24/21 09:18 Dose: 125 mg Documented by: Methylprednisolone Sodium Succinate (Methylprednisolone Sodium Succinate 40 Mg/1 Ml Sdv) 40 mg IVPUSH Q12H [facility] Stop: 04/25/21 18:01 Last Admin: 04/25/21 18:21 Dose: 40 mg Documented by: - Exam General: Reports: Alert, Cooperative, No Acute Distress HEENT: Reports: Mucous Membr. Moist/[place] Neck: Reports: Supple, Trachea Midline, No Thyromegaly. Denies: Lymphadenopathy Lungs: Reports: Clear to Auscultation, Normal Respiratory Effort Cardiovascular: Reports: Regular Rate, Regular Rhythm, No Murmurs GI/Abdominal Exam: Normal Bowel Sounds, Soft, Non-Tender, No Organomegaly, No Distention, No Mass Extremities: Normal Inspection, Non-Tender, No Pedal Edema, Normal Capillary Refill Skin: Reports: Warm, Dry, Intact Neurological: Reports: No New Focal Deficit
== END 2021-04-28 12:55 | disposition home or self-care (01) | DRG 189 ==
LOC: VM.ED 07:53 → VM.MS 10:12
PROVIDERS: ADMIT Family Medicine; ATTEND Family Medicine
DX: J96.01 Acute respiratory failure with hypoxia (principal); J44.1 Chronic obstructive pulmonary disease with (acute) exacerbation; I69.359 Hemiplegia and hemiparesis following cerebral infarction affecting unspecified side; N18.4 Chronic kidney disease, stage 4 (severe); J96.02 Acute respiratory failure with hypercapnia; R79.89 Other specified abnormal findings of blood chemistry; I10 Essential (primary) hypertension; E77.8 Other disorders of glycoprotein metabolism; I25.10 Atherosclerotic heart disease of native coronary artery without angina pectoris; N28.9 Disorder of kidney and ureter, unspecified; E11.22 Type 2 diabetes mellitus with diabetic chronic kidney disease; F41.8 Other specified anxiety disorders; N40.0 Benign prostatic hyperplasia without lower urinary tract symptoms; N52.9 Male erectile dysfunction, unspecified; M19.90 Unspecified osteoarthritis, unspecified site; F32.9 Major depressive disorder, single episode, unspecified; Z66 Do not resuscitate; E11.9 Type 2 diabetes mellitus without complications; Z86.73 Personal history of transient ischemic attack (TIA), and cerebral infarction without residual deficits; Z20.822 Contact with and (suspected) exposure to COVID-19; E78.5 Hyperlipidemia, unspecified; I12.9 Hypertensive chronic kidney disease with stage 1 through stage 4 chronic kidney disease, or unspecified chronic kidney disease; G47.33 Obstructive sleep apnea (adult) (pediatric); M89.49 Other hypertrophic osteoarthropathy, multiple sites; E78.00 Pure hypercholesterolemia, unspecified; M54.9 Dorsalgia, unspecified; G89.29 Other chronic pain; R77.8 Other specified abnormalities of plasma proteins; G47.30 Sleep apnea, unspecified; F41.9 Anxiety disorder, unspecified; Z79.82 Long term (current) use of aspirin; Z79.899 Other long term (current) drug therapy; Z98.49 Cataract extraction status, unspecified eye; Z95.5 Presence of coronary angioplasty implant and graft; Z79.4 Long term (current) use of insulin; Z87.891 Personal history of nicotine dependence; Z95.1 Presence of aortocoronary bypass graft; Z79.01 Long term (current) use of anticoagulants
CPT/HCPCS: 0241U; 36415; 71045; 71046; 80048; 80053; 82550; 82947; 83605; 83880; 84484; 85025; 85379; 93005; 94640; 94760; 96374; 97161-GP; 97165-GO; 99284; 99285-25; A9270-GY; J0696; J1644; J1815-GY; J2920; J2930; J7512; J7620-GY

== ENCOUNTER 2022-05-25 12:42 | Inpatient (IN) | payer MEDICARE, BC ==
[2022-05-25 13:47] LABS: CHLORIDE,CL 102 mmol/L (98-107); SODIUM,NA 139 mmol/L (136-145)
[2022-05-25 13:48] LABS: ANION GAP 9.1 mmol/L (5-15); ESTIMATED GFR 20 mL/min (>=60)
[2022-05-25 14:12] LABS: CORONAVIRUS COVID-19 NAA NEGATIVE (NEGATIVE)
[2022-05-25] MEDS ORDERED: cefTRIAXone 2 GM Vial IVPUSH ONE (14:22)
[2022-05-25] MEDS ORDERED: Ondansetron 4 MG/2 ML SDV IV PRN (15:17)
[2022-05-25] MEDS ORDERED: Cyclobenzaprine 10 MG Tab PO PRN (15:25)
[2022-05-25] MEDS ORDERED: Sodium Chloride 0.9% 1,000 ML IV SCH (15:45)
[2022-05-25] MEDS: Furosemide 40 MG Tab PO SCH (16:29)
[2022-05-25] MEDS: Azithromycin 250 MG Tab PO SCH (16:29)
[2022-05-25] MEDS: Melatonin 3 MG Tab PO SCH (20:07)
[2022-05-25] MEDS: Doxepin 10 MG Cap PO SCH (20:07)
[2022-05-25] MEDS: Oxybutynin 5 MG Tab.ER PO SCH (20:07)
[2022-05-25] MEDS: Tamsulosin 0.4 MG Cap.ER PO SCH (20:08)
[2022-05-25] MEDS: Fluticasone Propionate Nasal Spray 9.9 ML BOTTLE NASBOTH SCH (20:08)
[2022-05-25] MEDS: Docusate Sodium 100 MG Cap PO SCH (20:09)
[2022-05-25] MEDS: Insulin Glarg,Human.Rec.Analog 100 Unit/ML SUBCUT SCH (20:15)
[2022-05-25] MEDS: Albuterol/Ipratropium 3.0-0.5 MG/3 ML Neb Soln NEB PRN (23:22)
[2022-05-26 07:44] LABS: ANION GAP 10.1 mmol/L (5-15)
[2022-05-26] MEDS ORDERED: Sodium Chloride 0.9% 10 ML Syringe FLUSH PRN (08:24)
[2022-05-26] MEDS: Fluticasone Propionate Nasal Spray 9.9 ML BOTTLE NASBOTH SCH ×2 (08:30→20:40)
[2022-05-26] MEDS: cefTRIAXone 1 GM Vial IVPUSH SCH (09:32)
[2022-05-26] MEDS: Fenofibrate,Micronized 134 MG Cap PO SCH (09:33)
[2022-05-26] MEDS: Azithromycin 250 MG Tab PO SCH (09:34)
[2022-05-26] MEDS: Furosemide 40 MG Tab PO SCH ×2 (09:34→17:59)
[2022-05-26] MEDS: Calcitriol 0.25 MCG Cap PO SCH (09:34)
[2022-05-26] MEDS: Docusate Sodium 100 MG Cap PO SCH ×2 (09:34→20:41)
[2022-05-26] MEDS: Isosorbide Mononitrate 30 MG Tab.ER PO SCH (09:35)
[2022-05-26] MEDS: Aspirin 325 MG Tab.EC PO SCH (09:35)
[2022-05-26] MEDS: Cholecalciferol (Vitamin D3) 25 MCG Tab PO SCH (09:35)
[2022-05-26] MEDS: Sertraline 25 MG Tab PO SCH (09:35)
[2022-05-26] MEDS: Rosuvastatin 20 MG Tab PO SCH (09:37)
[2022-05-26] MEDS: Albuterol/Ipratropium 3.0-0.5 MG/3 ML Neb Soln NEB PRN (20:39)
[2022-05-26] MEDS: Melatonin 3 MG Tab PO SCH (20:40)
[2022-05-26] MEDS: Tamsulosin 0.4 MG Cap.ER PO SCH (20:40)
[2022-05-26] MEDS: Doxepin 10 MG Cap PO SCH (20:40)
[2022-05-26] MEDS: Insulin Glarg,Human.Rec.Analog 100 Unit/ML SUBCUT SCH (20:41)
[2022-05-26] MEDS: Oxybutynin 5 MG Tab.ER PO SCH (20:41)
[2022-05-27] MEDS: Sertraline 25 MG Tab PO SCH (08:42)
[2022-05-27] MEDS: Fenofibrate,Micronized 134 MG Cap PO SCH (08:42)
[2022-05-27] MEDS: Azithromycin 250 MG Tab PO SCH (08:42)
[2022-05-27] MEDS: Rosuvastatin 20 MG Tab PO SCH (08:43)
[2022-05-27] MEDS: Calcitriol 0.25 MCG Cap PO SCH (08:44)
[2022-05-27] MEDS: Cholecalciferol (Vitamin D3) 25 MCG Tab PO SCH (08:44)
[2022-05-27] MEDS: Aspirin 325 MG Tab.EC PO SCH (08:44)
[2022-05-27] MEDS: Furosemide 40 MG Tab PO SCH ×2 (08:46→17:48)
[2022-05-27] MEDS: Isosorbide Mononitrate 30 MG Tab.ER PO SCH (08:46)
[2022-05-27] MEDS: cefTRIAXone 1 GM Vial IVPUSH SCH (08:47)
[2022-05-27] MEDS: Docusate Sodium 100 MG Cap PO SCH ×2 (08:47→20:52)
[2022-05-27] MEDS: Fluticasone Propionate Nasal Spray 9.9 ML BOTTLE NASBOTH SCH ×2 (08:48→20:52)
[2022-05-27] MEDS: Albuterol/Ipratropium 3.0-0.5 MG/3 ML Neb Soln NEB PRN ×2 (09:07→20:51)
[2022-05-27] MEDS: Insulin Glarg,Human.Rec.Analog 100 Unit/ML SUBCUT SCH (20:50)
[2022-05-27] MEDS: Tamsulosin 0.4 MG Cap.ER PO SCH (20:51)
[2022-05-27] MEDS: Melatonin 3 MG Tab PO SCH (20:51)
[2022-05-27] MEDS: Oxybutynin 5 MG Tab.ER PO SCH (20:51)
[2022-05-27] MEDS: Cefuroxime 250 MG Tab PO SCH (20:52)
[2022-05-27] MEDS: Doxepin 10 MG Cap PO SCH (20:52)
[2022-05-28 07:33] LABS: ANION GAP 12.9 mmol/L (5-15)
[2022-05-28] MEDS: Cefuroxime 250 MG Tab PO SCH (08:04)
[2022-05-28] MEDS: Furosemide 40 MG Tab PO SCH (08:04)
[2022-05-28] MEDS: Sertraline 25 MG Tab PO SCH (08:04)
[2022-05-28] MEDS: Calcitriol 0.25 MCG Cap PO SCH (08:04)
[2022-05-28] MEDS: Docusate Sodium 100 MG Cap PO SCH (08:05)
[2022-05-28] MEDS: Isosorbide Mononitrate 30 MG Tab.ER PO SCH (08:05)
[2022-05-28] MEDS: Fenofibrate,Micronized 134 MG Cap PO SCH (08:05)
[2022-05-28] MEDS: Cholecalciferol (Vitamin D3) 25 MCG Tab PO SCH (08:05)
[2022-05-28] MEDS: Rosuvastatin 20 MG Tab PO SCH (08:06)
[2022-05-28] MEDS: Azithromycin 250 MG Tab PO SCH (08:06)
[2022-05-28] MEDS: Aspirin 325 MG Tab.EC PO SCH (08:06)
[2022-05-28] MEDS: Fluticasone Propionate Nasal Spray 9.9 ML BOTTLE NASBOTH SCH (08:09)
== END 2022-05-28 12:50 | disposition swing bed (61) | DRG 193 ==
LOC: VM.ED 12:42 → VM.MS 14:08
PROVIDERS: ADMIT Family Medicine; ATTEND Family Medicine
DX: J18.9 Pneumonia, unspecified organism (principal); I21.A1 Myocardial infarction type 2; J96.01 Acute respiratory failure with hypoxia; N18.30 Chronic kidney disease, stage 3 unspecified; I50.9 Heart failure, unspecified; J96.02 Acute respiratory failure with hypercapnia; I50.32 Chronic diastolic (congestive) heart failure; J44.9 Chronic obstructive pulmonary disease, unspecified; I69.359 Hemiplegia and hemiparesis following cerebral infarction affecting unspecified side; M19.90 Unspecified osteoarthritis, unspecified site; I13.0 Hypertensive heart and chronic kidney disease with heart failure and stage 1 through stage 4 chronic kidney disease, or unspecified chronic kidney disease; F32.A Depression, unspecified; F41.9 Anxiety disorder, unspecified; Z86.73 Personal history of transient ischemic attack (TIA), and cerebral infarction without residual deficits; N18.4 Chronic kidney disease, stage 4 (severe); Z87.891 Personal history of nicotine dependence; Z20.822 Contact with and (suspected) exposure to COVID-19; E11.22 Type 2 diabetes mellitus with diabetic chronic kidney disease; F41.8 Other specified anxiety disorders; E66.09 Other obesity due to excess calories; N40.0 Benign prostatic hyperplasia without lower urinary tract symptoms; I25.10 Atherosclerotic heart disease of native coronary artery without angina pectoris; E78.5 Hyperlipidemia, unspecified; M15.9 Polyosteoarthritis, unspecified; E78.00 Pure hypercholesterolemia, unspecified; M54.9 Dorsalgia, unspecified; G89.29 Other chronic pain; G47.30 Sleep apnea, unspecified; Z68.33 Body mass index [BMI] 33.0-33.9, adult; Z79.890 Hormone replacement therapy; Z79.899 Other long term (current) drug therapy; Z79.02 Long term (current) use of antithrombotics/antiplatelets; Z79.4 Long term (current) use of insulin; Z95.1 Presence of aortocoronary bypass graft; Z86.16 Personal history of COVID-19; Z79.82 Long term (current) use of aspirin; Z95.5 Presence of coronary angioplasty implant and graft
CPT/HCPCS: 0240U; 36415; 71045; 71046; 80048; 80053; 82550; 82947; 83605; 83880; 84145; 84484; 85025; 86140; 87040; 87070; 87205; 93005; 94640; 94760; 96374; 97110-GP; 97116-GP; 97161-GP; 97165-GO; 97535-GO; 99285-25; A9270-GY; J0696; J1815-GY; J7030; J7620-GY

== ENCOUNTER 2022-05-28 11:57 | Inpatient (IN) | payer MEDICARE, BC ==
[2022-05-28] MEDS ORDERED: 50% Dextrose in Water 50 ML Syringe IVPUSH PRN (12:51)
[2022-05-28] MEDS ORDERED: Cyclobenzaprine 10 MG Tab PO PRN (12:51)
[2022-05-28] MEDS ORDERED: Glucagon,Human Recombinant 1 MG Vial IM PRN (12:51)
[2022-05-28] MEDS ORDERED: Sodium Chloride 0.9% 10 ML Syringe FLUSH PRN (12:51)
[2022-05-28] MEDS: Furosemide 40 MG Tab PO SCH (17:46)
[2022-05-28] MEDS: Insulin Glarg,Human.Rec.Analog 100 Unit/ML SUBCUT SCH (20:14)
[2022-05-28] MEDS: Fluticasone Propionate Nasal Spray 9.9 ML BOTTLE NASBOTH SCH (20:15)
[2022-05-28] MEDS: Melatonin 3 MG Tab PO SCH (20:16)
[2022-05-28] MEDS: Cefuroxime 250 MG Tab PO SCH (20:16)
[2022-05-28] MEDS: Doxepin 10 MG Cap PO SCH (20:17)
[2022-05-28] MEDS: Tamsulosin 0.4 MG Cap.ER PO SCH (20:17)
[2022-05-28] MEDS: Docusate Sodium 100 MG Cap PO SCH (20:17)
[2022-05-28] MEDS: Oxybutynin 5 MG Tab.ER PO SCH (20:17)
[2022-05-29] MEDS: Isosorbide Mononitrate 30 MG Tab.ER PO SCH (09:06)
[2022-05-29] MEDS: Fenofibrate,Micronized 134 MG Cap PO SCH (09:07)
[2022-05-29] MEDS: Cholecalciferol (Vitamin D3) 25 MCG Tab PO SCH (09:07)
[2022-05-29] MEDS: Rosuvastatin 20 MG Tab PO SCH (09:07)
[2022-05-29] MEDS: Cefuroxime 250 MG Tab PO SCH ×2 (09:07→20:59)
[2022-05-29] MEDS: Calcitriol 0.25 MCG Cap PO SCH (09:07)
[2022-05-29] MEDS: Docusate Sodium 100 MG Cap PO SCH ×2 (09:08→20:59)
[2022-05-29] MEDS: Sertraline 25 MG Tab PO SCH (09:08)
[2022-05-29] MEDS: Aspirin 325 MG Tab.EC PO SCH (09:08)
[2022-05-29] MEDS: Furosemide 40 MG Tab PO SCH ×2 (09:08→17:19)
[2022-05-29] MEDS: Azithromycin 250 MG Tab PO SCH (09:08)
[2022-05-29] MEDS: Fluticasone Propionate Nasal Spray 9.9 ML BOTTLE NASBOTH SCH ×2 (09:09→20:58)
[2022-05-29] MEDS: Doxepin 10 MG Cap PO SCH (20:59)
[2022-05-29] MEDS: Melatonin 3 MG Tab PO SCH (20:59)
[2022-05-29] MEDS: Oxybutynin 5 MG Tab.ER PO SCH (20:59)
[2022-05-29] MEDS: Tamsulosin 0.4 MG Cap.ER PO SCH (20:59)
[2022-05-29] MEDS: Insulin Glarg,Human.Rec.Analog 100 Unit/ML SUBCUT SCH (21:02)
[2022-05-30] MEDS: Isosorbide Mononitrate 30 MG Tab.ER PO SCH (08:51)
[2022-05-30] MEDS: Fenofibrate,Micronized 134 MG Cap PO SCH (08:52)
[2022-05-30] MEDS: Rosuvastatin 20 MG Tab PO SCH (08:52)
[2022-05-30] MEDS: Cefuroxime 250 MG Tab PO SCH ×2 (08:52→21:06)
[2022-05-30] MEDS: Cholecalciferol (Vitamin D3) 25 MCG Tab PO SCH (08:52)
[2022-05-30] MEDS: Sertraline 25 MG Tab PO SCH (08:52)
[2022-05-30] MEDS: Furosemide 40 MG Tab PO SCH ×2 (08:52→17:33)
[2022-05-30] MEDS: Aspirin 325 MG Tab.EC PO SCH (08:52)
[2022-05-30] MEDS: Docusate Sodium 100 MG Cap PO SCH ×2 (08:52→21:05)
[2022-05-30] MEDS: Calcitriol 0.25 MCG Cap PO SCH (08:52)
[2022-05-30] MEDS: Azithromycin 250 MG Tab PO SCH (08:52)
[2022-05-30] MEDS: Fluticasone Propionate Nasal Spray 9.9 ML BOTTLE NASBOTH SCH ×2 (08:56→21:03)
[2022-05-30] MEDS: Insulin Glarg,Human.Rec.Analog 100 Unit/ML SUBCUT SCH (21:00)
[2022-05-30] MEDS: Oxybutynin 5 MG Tab.ER PO SCH (21:05)
[2022-05-30] MEDS: Melatonin 3 MG Tab PO SCH (21:05)
[2022-05-30] MEDS: Tamsulosin 0.4 MG Cap.ER PO SCH (21:06)
[2022-05-30] MEDS: Doxepin 10 MG Cap PO SCH (21:06)
[2022-05-31] MEDS: Calcitriol 0.25 MCG Cap PO SCH (08:12)
[2022-05-31] MEDS: Fenofibrate,Micronized 134 MG Cap PO SCH (08:12)
[2022-05-31] MEDS: Rosuvastatin 20 MG Tab PO SCH (08:12)
[2022-05-31] MEDS: Fluticasone Propionate Nasal Spray 9.9 ML BOTTLE NASBOTH SCH ×2 (08:12→20:22)
[2022-05-31] MEDS: Cholecalciferol (Vitamin D3) 25 MCG Tab PO SCH (08:12)
[2022-05-31] MEDS: Isosorbide Mononitrate 30 MG Tab.ER PO SCH (08:13)
[2022-05-31] MEDS: Azithromycin 250 MG Tab PO SCH (08:13)
[2022-05-31] MEDS: Cefuroxime 250 MG Tab PO SCH ×2 (08:13→20:20)
[2022-05-31] MEDS: Aspirin 325 MG Tab.EC PO SCH (08:14)
[2022-05-31] MEDS: Docusate Sodium 100 MG Cap PO SCH ×2 (08:14→20:22)
[2022-05-31] MEDS: Furosemide 40 MG Tab PO SCH ×2 (08:14→17:44)
[2022-05-31] MEDS: Sertraline 25 MG Tab PO SCH (08:14)
[2022-05-31] MEDS: Insulin Glarg,Human.Rec.Analog 100 Unit/ML SUBCUT SCH (20:20)
[2022-05-31] MEDS: Oxybutynin 5 MG Tab.ER PO SCH (20:21)
[2022-05-31] MEDS: Doxepin 10 MG Cap PO SCH (20:21)
[2022-05-31] MEDS: Tamsulosin 0.4 MG Cap.ER PO SCH (20:21)
[2022-05-31] MEDS: Melatonin 3 MG Tab PO SCH (20:21)
[2022-06-01 06:48] LABS: ANION GAP 9.9 mmol/L (5-15)
[2022-06-01] MEDS: Sertraline 25 MG Tab PO SCH (08:05)
[2022-06-01] MEDS: Isosorbide Mononitrate 30 MG Tab.ER PO SCH (08:06)
[2022-06-01] MEDS: Docusate Sodium 100 MG Cap PO SCH ×2 (08:06→20:21)
[2022-06-01] MEDS: Cholecalciferol (Vitamin D3) 25 MCG Tab PO SCH (08:06)
[2022-06-01] MEDS: Fenofibrate,Micronized 134 MG Cap PO SCH (08:06)
[2022-06-01] MEDS: Aspirin 325 MG Tab.EC PO SCH (08:06)
[2022-06-01] MEDS: Azithromycin 250 MG Tab PO SCH (08:07)
[2022-06-01] MEDS: Calcitriol 0.25 MCG Cap PO SCH (08:07)
[2022-06-01] MEDS: Rosuvastatin 20 MG Tab PO SCH (08:07)
[2022-06-01] MEDS: Fluticasone Propionate Nasal Spray 9.9 ML BOTTLE NASBOTH SCH ×2 (08:07→20:14)
[2022-06-01] MEDS: Furosemide 40 MG Tab PO SCH ×2 (08:07→17:43)
[2022-06-01] MEDS: Cefuroxime 250 MG Tab PO SCH ×2 (08:07→20:21)
[2022-06-01] MEDS: Insulin Glarg,Human.Rec.Analog 100 Unit/ML SUBCUT SCH (20:15)
[2022-06-01] MEDS: Melatonin 3 MG Tab PO SCH (20:20)
[2022-06-01] MEDS: Oxybutynin 5 MG Tab.ER PO SCH (20:20)
[2022-06-01] MEDS: Tamsulosin 0.4 MG Cap.ER PO SCH (20:21)
[2022-06-01] MEDS: Doxepin 10 MG Cap PO SCH (20:21)
[2022-06-02] MEDS: Furosemide 40 MG Tab PO SCH ×2 (08:56→17:50)
[2022-06-02] MEDS: Isosorbide Mononitrate 30 MG Tab.ER PO SCH (08:56)
[2022-06-02] MEDS: Docusate Sodium 100 MG Cap PO SCH ×2 (08:56→20:29)
[2022-06-02] MEDS: Cholecalciferol (Vitamin D3) 25 MCG Tab PO SCH (08:57)
[2022-06-02] MEDS: Cefuroxime 250 MG Tab PO SCH ×2 (08:57→20:29)
[2022-06-02] MEDS: Rosuvastatin 20 MG Tab PO SCH (08:57)
[2022-06-02] MEDS: Sertraline 25 MG Tab PO SCH (08:57)
[2022-06-02] MEDS: Aspirin 325 MG Tab.EC PO SCH (08:57)
[2022-06-02] MEDS: Calcitriol 0.25 MCG Cap PO SCH (08:57)
[2022-06-02] MEDS: Fenofibrate,Micronized 134 MG Cap PO SCH (08:58)
[2022-06-02] MEDS: Fluticasone Propionate Nasal Spray 9.9 ML BOTTLE NASBOTH SCH ×2 (08:59→20:28)
[2022-06-02] MEDS: Albuterol/Ipratropium 3.0-0.5 MG/3 ML Neb Soln NEB PRN (10:31)
[2022-06-02] MEDS: Insulin Glarg,Human.Rec.Analog 100 Unit/ML SUBCUT SCH (20:27)
[2022-06-02] MEDS: Tamsulosin 0.4 MG Cap.ER PO SCH (20:28)
[2022-06-02] MEDS: Doxepin 10 MG Cap PO SCH (20:29)
[2022-06-02] MEDS: Melatonin 3 MG Tab PO SCH (20:29)
[2022-06-02] MEDS: Oxybutynin 5 MG Tab.ER PO SCH (20:29)
[2022-06-03] MEDS: Albuterol/Ipratropium 3.0-0.5 MG/3 ML Neb Soln NEB PRN ×2 (02:07→22:09)
[2022-06-03] MEDS: Cefuroxime 250 MG Tab PO SCH ×2 (08:50→20:32)
[2022-06-03] MEDS: Fenofibrate,Micronized 134 MG Cap PO SCH (08:50)
[2022-06-03] MEDS: Fluticasone Propionate Nasal Spray 9.9 ML BOTTLE NASBOTH SCH ×2 (08:50→20:30)
[2022-06-03] MEDS: Cholecalciferol (Vitamin D3) 25 MCG Tab PO SCH (08:50)
[2022-06-03] MEDS: Rosuvastatin 20 MG Tab PO SCH (08:50)
[2022-06-03] MEDS: Furosemide 40 MG Tab PO SCH (08:51)
[2022-06-03] MEDS: Sertraline 25 MG Tab PO SCH (08:51)
[2022-06-03] MEDS: Docusate Sodium 100 MG Cap PO SCH ×2 (08:51→20:33)
[2022-06-03] MEDS: Calcitriol 0.25 MCG Cap PO SCH (08:51)
[2022-06-03] MEDS: Aspirin 325 MG Tab.EC PO SCH (08:51)
[2022-06-03] MEDS: Isosorbide Mononitrate 30 MG Tab.ER PO SCH (08:52)
[2022-06-03 13:01] LABS: ANION GAP 11.2 mmol/L (5-15)
[2022-06-03] MEDS ORDERED: Torsemide 20 MG Tab PO ONE (14:37)
[2022-06-03] MEDS: Insulin Glarg,Human.Rec.Analog 100 Unit/ML SUBCUT SCH (20:27)
[2022-06-03] MEDS: Tamsulosin 0.4 MG Cap.ER PO SCH (20:33)
[2022-06-03] MEDS: Melatonin 3 MG Tab PO SCH (20:33)
[2022-06-03] MEDS: Oxybutynin 5 MG Tab.ER PO SCH (20:33)
[2022-06-03] MEDS: Doxepin 10 MG Cap PO SCH (20:33)
[2022-06-04 07:15] LABS: ANION GAP 10.7 mmol/L (5-15)
[2022-06-04] MEDS: Rosuvastatin 20 MG Tab PO SCH (08:47)
[2022-06-04] MEDS: Docusate Sodium 100 MG Cap PO SCH ×2 (08:47→21:07)
[2022-06-04] MEDS: Fenofibrate,Micronized 134 MG Cap PO SCH (08:47)
[2022-06-04] MEDS: Calcitriol 0.25 MCG Cap PO SCH (08:47)
[2022-06-04] MEDS: Cholecalciferol (Vitamin D3) 25 MCG Tab PO SCH (08:48)
[2022-06-04] MEDS: Aspirin 325 MG Tab.EC PO SCH (08:48)
[2022-06-04] MEDS: Sertraline 25 MG Tab PO SCH (08:48)
[2022-06-04] MEDS: Isosorbide Mononitrate 30 MG Tab.ER PO SCH (08:49)
[2022-06-04] MEDS: Fluticasone Propionate Nasal Spray 9.9 ML BOTTLE NASBOTH SCH ×3 (08:55→21:06)
[2022-06-04] MEDS: Torsemide 20 MG Tab PO SCH ×2 (11:32→18:17)
[2022-06-04] MEDS: Albuterol/Ipratropium 3.0-0.5 MG/3 ML Neb Soln NEB PRN (15:36)
[2022-06-04] MEDS: Insulin Glarg,Human.Rec.Analog 100 Unit/ML SUBCUT SCH (20:58)
[2022-06-04] MEDS: Melatonin 3 MG Tab PO SCH (21:06)
[2022-06-04] MEDS: Oxybutynin 5 MG Tab.ER PO SCH (21:07)
[2022-06-04] MEDS: Tamsulosin 0.4 MG Cap.ER PO SCH (21:07)
[2022-06-04] MEDS: Doxepin 10 MG Cap PO SCH (21:07)
[2022-06-05 08:15] LABS: ANION GAP 10.9 mmol/L (5-15)
[2022-06-05] MEDS: Cholecalciferol (Vitamin D3) 25 MCG Tab PO SCH (08:39)
[2022-06-05] MEDS: Sertraline 25 MG Tab PO SCH (08:39)
[2022-06-05] MEDS: Rosuvastatin 20 MG Tab PO SCH (08:39)
[2022-06-05] MEDS: Fenofibrate,Micronized 134 MG Cap PO SCH (08:40)
[2022-06-05] MEDS: Aspirin 325 MG Tab.EC PO SCH (08:40)
[2022-06-05] MEDS: Torsemide 20 MG Tab PO SCH ×2 (08:40→17:08)
[2022-06-05] MEDS: Isosorbide Mononitrate 30 MG Tab.ER PO SCH (08:41)
[2022-06-05] MEDS: Calcitriol 0.25 MCG Cap PO SCH (08:41)
[2022-06-05] MEDS: Docusate Sodium 100 MG Cap PO SCH ×2 (08:41→20:53)
[2022-06-05] MEDS: Fluticasone Propionate Nasal Spray 9.9 ML BOTTLE NASBOTH SCH ×2 (10:01→20:53)
[2022-06-05] MEDS: Insulin Glarg,Human.Rec.Analog 100 Unit/ML SUBCUT SCH (20:50)
[2022-06-05] MEDS: Melatonin 3 MG Tab PO SCH (20:52)
[2022-06-05] MEDS: Oxybutynin 5 MG Tab.ER PO SCH (20:52)
[2022-06-05] MEDS: Doxepin 10 MG Cap PO SCH (20:53)
[2022-06-05] MEDS: Tamsulosin 0.4 MG Cap.ER PO SCH (20:53)
[2022-06-06] MEDS: Fenofibrate,Micronized 134 MG Cap PO SCH (08:16)
[2022-06-06] MEDS: Docusate Sodium 100 MG Cap PO SCH ×2 (08:17→20:47)
[2022-06-06] MEDS: Rosuvastatin 20 MG Tab PO SCH (08:17)
[2022-06-06] MEDS: Aspirin 325 MG Tab.EC PO SCH (08:18)
[2022-06-06] MEDS: Calcitriol 0.25 MCG Cap PO SCH (08:18)
[2022-06-06] MEDS: Cholecalciferol (Vitamin D3) 25 MCG Tab PO SCH (08:18)
[2022-06-06] MEDS: Sertraline 25 MG Tab PO SCH (08:18)
[2022-06-06] MEDS: Torsemide 20 MG Tab PO SCH ×2 (08:18→17:48)
[2022-06-06] MEDS: Isosorbide Mononitrate 30 MG Tab.ER PO SCH (08:19)
[2022-06-06] MEDS: Fluticasone Propionate Nasal Spray 9.9 ML BOTTLE NASBOTH SCH ×2 (08:19→20:49)
[2022-06-06] MEDS: Tamsulosin 0.4 MG Cap.ER PO SCH (20:47)
[2022-06-06] MEDS: Melatonin 3 MG Tab PO SCH (20:47)
[2022-06-06] MEDS: Doxepin 10 MG Cap PO SCH (20:47)
[2022-06-06] MEDS: Oxybutynin 5 MG Tab.ER PO SCH (20:48)
[2022-06-06] MEDS: Insulin Glarg,Human.Rec.Analog 100 Unit/ML SUBCUT SCH (20:50)
[2022-06-07 07:20] LABS: ANION GAP 8.7 mmol/L (5-15)
[2022-06-07] MEDS: Aspirin 325 MG Tab.EC PO SCH (08:40)
[2022-06-07] MEDS: Rosuvastatin 20 MG Tab PO SCH (08:40)
[2022-06-07] MEDS: Sertraline 25 MG Tab PO SCH (08:41)
[2022-06-07] MEDS: Torsemide 20 MG Tab PO SCH ×2 (08:41→18:17)
[2022-06-07] MEDS: Docusate Sodium 100 MG Cap PO SCH ×2 (08:41→20:37)
[2022-06-07] MEDS: Calcitriol 0.25 MCG Cap PO SCH (08:42)
[2022-06-07] MEDS: Fenofibrate,Micronized 134 MG Cap PO SCH (08:42)
[2022-06-07] MEDS: Isosorbide Mononitrate 30 MG Tab.ER PO SCH (08:42)
[2022-06-07] MEDS: Cholecalciferol (Vitamin D3) 25 MCG Tab PO SCH (08:42)
[2022-06-07] MEDS: Albuterol/Ipratropium 3.0-0.5 MG/3 ML Neb Soln NEB PRN (08:43)
[2022-06-07] MEDS: Fluticasone Propionate Nasal Spray 9.9 ML BOTTLE NASBOTH SCH ×2 (14:48→20:38)
[2022-06-07] MEDS: Doxepin 10 MG Cap PO SCH (20:37)
[2022-06-07] MEDS: Oxybutynin 5 MG Tab.ER PO SCH (20:37)
[2022-06-07] MEDS: Tamsulosin 0.4 MG Cap.ER PO SCH (20:37)
[2022-06-07] MEDS: Melatonin 3 MG Tab PO SCH (20:38)
[2022-06-07] MEDS: Insulin Glarg,Human.Rec.Analog 100 Unit/ML SUBCUT SCH (20:39)
[2022-06-08] MEDS: Isosorbide Mononitrate 30 MG Tab.ER PO SCH (08:26)
[2022-06-08] MEDS: Docusate Sodium 100 MG Cap PO SCH ×2 (08:27→21:26)
[2022-06-08] MEDS: Sertraline 25 MG Tab PO SCH (08:27)
[2022-06-08] MEDS: Fenofibrate,Micronized 134 MG Cap PO SCH (08:27)
[2022-06-08] MEDS: Aspirin 325 MG Tab.EC PO SCH (08:27)
[2022-06-08] MEDS: Torsemide 20 MG Tab PO SCH ×2 (08:27→17:40)
[2022-06-08] MEDS: Cholecalciferol (Vitamin D3) 25 MCG Tab PO SCH (08:27)
[2022-06-08] MEDS: Rosuvastatin 20 MG Tab PO SCH (08:27)
[2022-06-08] MEDS: Fluticasone Propionate Nasal Spray 9.9 ML BOTTLE NASBOTH SCH ×2 (08:28→21:26)
[2022-06-08] MEDS: Calcitriol 0.25 MCG Cap PO SCH (08:28)
[2022-06-08] MEDS ORDERED: Insulin Glarg,Human.Rec.Analog 100 Unit/ML SUBCUT SCH (21:00)
[2022-06-08] MEDS: Tamsulosin 0.4 MG Cap.ER PO SCH (21:25)
[2022-06-08] MEDS: Doxepin 10 MG Cap PO SCH (21:25)
[2022-06-08] MEDS: Melatonin 3 MG Tab PO SCH (21:25)
[2022-06-08] MEDS: Oxybutynin 5 MG Tab.ER PO SCH (21:26)
[2022-06-09] MEDS: Docusate Sodium 100 MG Cap PO SCH ×2 (08:32→20:39)
[2022-06-09] MEDS: Isosorbide Mononitrate 30 MG Tab.ER PO SCH (08:32)
[2022-06-09] MEDS: Cholecalciferol (Vitamin D3) 25 MCG Tab PO SCH (08:32)
[2022-06-09] MEDS: Calcitriol 0.25 MCG Cap PO SCH (08:32)
[2022-06-09] MEDS: Aspirin 325 MG Tab.EC PO SCH (08:32)
[2022-06-09] MEDS: Rosuvastatin 20 MG Tab PO SCH (08:32)
[2022-06-09] MEDS: Sertraline 25 MG Tab PO SCH (08:33)
[2022-06-09] MEDS: Fluticasone Propionate Nasal Spray 9.9 ML BOTTLE NASBOTH SCH ×2 (08:33→20:44)
[2022-06-09] MEDS: Fenofibrate,Micronized 134 MG Cap PO SCH (08:33)
[2022-06-09] MEDS: Torsemide 20 MG Tab PO SCH ×2 (08:33→17:52)
[2022-06-09 10:40] LABS: ANION GAP 5.8 mmol/L (5-15)
[2022-06-09] MEDS: Melatonin 3 MG Tab PO SCH (20:39)
[2022-06-09] MEDS: Doxepin 10 MG Cap PO SCH (20:40)
[2022-06-09] MEDS: Oxybutynin 5 MG Tab.ER PO SCH (20:43)
[2022-06-09] MEDS: Tamsulosin 0.4 MG Cap.ER PO SCH (20:44)
[2022-06-09] MEDS: Insulin Glarg,Human.Rec.Analog 100 Unit/ML SUBCUT SCH (20:48)
[2022-06-10] MEDS: Calcitriol 0.25 MCG Cap PO SCH (08:50)
[2022-06-10] MEDS: Torsemide 20 MG Tab PO SCH ×2 (08:50→17:45)
[2022-06-10] MEDS: Rosuvastatin 20 MG Tab PO SCH (08:50)
[2022-06-10] MEDS: Sertraline 25 MG Tab PO SCH (08:50)
[2022-06-10] MEDS: Aspirin 325 MG Tab.EC PO SCH (08:50)
[2022-06-10] MEDS: Docusate Sodium 100 MG Cap PO SCH ×2 (08:50→21:11)
[2022-06-10] MEDS: Cholecalciferol (Vitamin D3) 25 MCG Tab PO SCH (08:51)
[2022-06-10] MEDS: Isosorbide Mononitrate 30 MG Tab.ER PO SCH (08:51)
[2022-06-10] MEDS: Fenofibrate,Micronized 134 MG Cap PO SCH (08:52)
[2022-06-10] MEDS: Fluticasone Propionate Nasal Spray 9.9 ML BOTTLE NASBOTH SCH ×2 (08:55→21:12)
[2022-06-10] MEDS: Insulin Glarg,Human.Rec.Analog 100 Unit/ML SUBCUT SCH (21:10)
[2022-06-10] MEDS: Oxybutynin 5 MG Tab.ER PO SCH (21:11)
[2022-06-10] MEDS: Melatonin 3 MG Tab PO SCH (21:11)
[2022-06-10] MEDS: Doxepin 10 MG Cap PO SCH (21:11)
[2022-06-10] MEDS: Tamsulosin 0.4 MG Cap.ER PO SCH (21:11)
[2022-06-11] MEDS: Rosuvastatin 20 MG Tab PO SCH (08:59)
[2022-06-11] MEDS: Fenofibrate,Micronized 134 MG Cap PO SCH (08:59)
[2022-06-11] MEDS: Cholecalciferol (Vitamin D3) 25 MCG Tab PO SCH (09:00)
[2022-06-11] MEDS: Isosorbide Mononitrate 30 MG Tab.ER PO SCH (09:00)
[2022-06-11] MEDS: Torsemide 20 MG Tab PO SCH ×2 (09:00→17:16)
[2022-06-11] MEDS: Sertraline 25 MG Tab PO SCH (09:00)
[2022-06-11] MEDS: Aspirin 325 MG Tab.EC PO SCH (09:00)
[2022-06-11] MEDS: Calcitriol 0.25 MCG Cap PO SCH (09:00)
[2022-06-11] MEDS: Docusate Sodium 100 MG Cap PO SCH ×2 (09:01→20:30)
[2022-06-11] MEDS: Fluticasone Propionate Nasal Spray 9.9 ML BOTTLE NASBOTH SCH ×2 (09:02→20:29)
[2022-06-11] MEDS: Insulin Glarg,Human.Rec.Analog 100 Unit/ML SUBCUT SCH (20:27)
[2022-06-11] MEDS: Oxybutynin 5 MG Tab.ER PO SCH (20:30)
[2022-06-11] MEDS: Tamsulosin 0.4 MG Cap.ER PO SCH (20:30)
[2022-06-11] MEDS: Melatonin 3 MG Tab PO SCH (20:30)
[2022-06-11] MEDS: Doxepin 10 MG Cap PO SCH (20:30)
[2022-06-12] MEDS: Fenofibrate,Micronized 134 MG Cap PO SCH (08:27)
[2022-06-12] MEDS: Sertraline 25 MG Tab PO SCH (08:27)
[2022-06-12] MEDS: Torsemide 20 MG Tab PO SCH ×2 (08:27→17:18)
[2022-06-12] MEDS: Rosuvastatin 20 MG Tab PO SCH (08:27)
[2022-06-12] MEDS: Docusate Sodium 100 MG Cap PO SCH ×2 (08:27→20:24)
[2022-06-12] MEDS: Aspirin 325 MG Tab.EC PO SCH (08:28)
[2022-06-12] MEDS: Calcitriol 0.25 MCG Cap PO SCH (08:28)
[2022-06-12] MEDS: Isosorbide Mononitrate 30 MG Tab.ER PO SCH (08:28)
[2022-06-12] MEDS: Cholecalciferol (Vitamin D3) 25 MCG Tab PO SCH (08:28)
[2022-06-12] MEDS: Fluticasone Propionate Nasal Spray 9.9 ML BOTTLE NASBOTH SCH ×2 (08:29→20:25)
[2022-06-12] MEDS: Oxybutynin 5 MG Tab.ER PO SCH (20:23)
[2022-06-12] MEDS: Doxepin 10 MG Cap PO SCH (20:24)
[2022-06-12] MEDS: Melatonin 3 MG Tab PO SCH (20:24)
[2022-06-12] MEDS: Tamsulosin 0.4 MG Cap.ER PO SCH (20:24)
[2022-06-12] MEDS: Insulin Glarg,Human.Rec.Analog 100 Unit/ML SUBCUT SCH (20:25)
[2022-06-13] MEDS: Torsemide 20 MG Tab PO SCH ×2 (08:18→17:38)
[2022-06-13] MEDS: Sertraline 25 MG Tab PO SCH (08:18)
[2022-06-13] MEDS: Fenofibrate,Micronized 134 MG Cap PO SCH (08:19)
[2022-06-13] MEDS: Isosorbide Mononitrate 30 MG Tab.ER PO SCH (08:19)
[2022-06-13] MEDS: Calcitriol 0.25 MCG Cap PO SCH (08:19)
[2022-06-13] MEDS: Rosuvastatin 20 MG Tab PO SCH (08:19)
[2022-06-13] MEDS: Docusate Sodium 100 MG Cap PO SCH ×2 (08:19→20:44)
[2022-06-13] MEDS: Aspirin 325 MG Tab.EC PO SCH (08:19)
[2022-06-13] MEDS: Cholecalciferol (Vitamin D3) 25 MCG Tab PO SCH (08:19)
[2022-06-13] MEDS: Fluticasone Propionate Nasal Spray 9.9 ML BOTTLE NASBOTH SCH ×2 (08:20→20:48)
[2022-06-13] MEDS: Albuterol/Ipratropium 3.0-0.5 MG/3 ML Neb Soln NEB PRN (09:25)
[2022-06-13] MEDS: Oxybutynin 5 MG Tab.ER PO SCH (20:43)
[2022-06-13] MEDS: Doxepin 10 MG Cap PO SCH (20:43)
[2022-06-13] MEDS: Melatonin 3 MG Tab PO SCH (20:44)
[2022-06-13] MEDS: Tamsulosin 0.4 MG Cap.ER PO SCH (20:44)
[2022-06-13] MEDS: Insulin Glarg,Human.Rec.Analog 100 Unit/ML SUBCUT SCH (20:47)
[2022-06-14] MEDS: Sertraline 25 MG Tab PO SCH (08:59)
[2022-06-14] MEDS: Fenofibrate,Micronized 134 MG Cap PO SCH (08:59)
[2022-06-14] MEDS: Fluticasone Propionate Nasal Spray 9.9 ML BOTTLE NASBOTH SCH ×2 (09:00→20:26)
[2022-06-14] MEDS: Docusate Sodium 100 MG Cap PO SCH ×2 (09:00→20:27)
[2022-06-14] MEDS: Rosuvastatin 20 MG Tab PO SCH (09:00)
[2022-06-14] MEDS: Aspirin 325 MG Tab.EC PO SCH (09:00)
[2022-06-14] MEDS: Torsemide 20 MG Tab PO SCH ×2 (09:00→17:50)
[2022-06-14] MEDS: Calcitriol 0.25 MCG Cap PO SCH (09:01)
[2022-06-14] MEDS: Isosorbide Mononitrate 30 MG Tab.ER PO SCH (09:01)
[2022-06-14] MEDS: Cholecalciferol (Vitamin D3) 25 MCG Tab PO SCH (09:01)
[2022-06-14] MEDS: Insulin Glarg,Human.Rec.Analog 100 Unit/ML SUBCUT SCH (20:26)
[2022-06-14] MEDS: Doxepin 10 MG Cap PO SCH (20:27)
[2022-06-14] MEDS: Melatonin 3 MG Tab PO SCH (20:27)
[2022-06-14] MEDS: Oxybutynin 5 MG Tab.ER PO SCH (20:27)
[2022-06-14] MEDS: Tamsulosin 0.4 MG Cap.ER PO SCH (20:27)
[2022-06-15] MEDS: Rosuvastatin 20 MG Tab PO SCH (09:13)
[2022-06-15] MEDS: Sertraline 25 MG Tab PO SCH (09:14)
[2022-06-15] MEDS: Aspirin 325 MG Tab.EC PO SCH (09:14)
[2022-06-15] MEDS: Isosorbide Mononitrate 30 MG Tab.ER PO SCH (09:14)
[2022-06-15] MEDS: Torsemide 20 MG Tab PO SCH ×2 (09:15→17:38)
[2022-06-15] MEDS: Cholecalciferol (Vitamin D3) 25 MCG Tab PO SCH (09:15)
[2022-06-15] MEDS: Docusate Sodium 100 MG Cap PO SCH ×2 (09:15→21:07)
[2022-06-15] MEDS: Fenofibrate,Micronized 134 MG Cap PO SCH (09:15)
[2022-06-15] MEDS: Calcitriol 0.25 MCG Cap PO SCH (09:16)
[2022-06-15] MEDS: Fluticasone Propionate Nasal Spray 9.9 ML BOTTLE NASBOTH SCH ×2 (09:19→21:15)
[2022-06-15] MEDS: Albuterol/Ipratropium 3.0-0.5 MG/3 ML Neb Soln NEB PRN (20:30)
[2022-06-15] MEDS: Melatonin 3 MG Tab PO SCH (21:06)
[2022-06-15] MEDS: Tamsulosin 0.4 MG Cap.ER PO SCH (21:06)
[2022-06-15] MEDS: Doxepin 10 MG Cap PO SCH (21:07)
[2022-06-15] MEDS: Oxybutynin 5 MG Tab.ER PO SCH (21:07)
[2022-06-15] MEDS: Insulin Glarg,Human.Rec.Analog 100 Unit/ML SUBCUT SCH (21:09)
== END 2022-06-16 02:54 | disposition expired | DRG 948 ==
LOC: VM.MS 11:57 → UNDOADMIN 11:57 → VM.MS 12:51 → UNDOADMIN 13:27
PROVIDERS: ADMIT Family Medicine; ATTEND Family Medicine
DX: R53.81 Other malaise (principal); J96.11 Chronic respiratory failure with hypoxia; I50.32 Chronic diastolic (congestive) heart failure; I69.359 Hemiplegia and hemiparesis following cerebral infarction affecting unspecified side; I13.0 Hypertensive heart and chronic kidney disease with heart failure and stage 1 through stage 4 chronic kidney disease, or unspecified chronic kidney disease; N17.9 Acute kidney failure, unspecified; N18.30 Chronic kidney disease, stage 3 unspecified; E11.22 Type 2 diabetes mellitus with diabetic chronic kidney disease; F41.9 Anxiety disorder, unspecified; F32.A Depression, unspecified; E66.9 Obesity, unspecified; N40.0 Benign prostatic hyperplasia without lower urinary tract symptoms; I25.10 Atherosclerotic heart disease of native coronary artery without angina pectoris; E78.5 Hyperlipidemia, unspecified; G47.33 Obstructive sleep apnea (adult) (pediatric); M15.9 Polyosteoarthritis, unspecified; Z68.33 Body mass index [BMI] 33.0-33.9, adult; Z79.82 Long term (current) use of aspirin; Z79.4 Long term (current) use of insulin; Z79.899 Other long term (current) drug therapy; Z87.01 Personal history of pneumonia (recurrent); Z79.02 Long term (current) use of antithrombotics/antiplatelets
CPT/HCPCS: 36415; 71046; 80048; 82947; 83880; 85025; 86140; 94640; 94760; 95851-GO; 97110-GP; 97112-GP; 97116-GP; 97530-GO; 97530-GP; 97535-GO; 99366-GO; 99366-GP; A9270-GY; J7620-GY